=== PATIENT | female | born 1955 | race Caucasian/White ===

== ENCOUNTER 2018-11-17 05:45 | Inpatient (IN) ==
--- NOTE | 2018-10-16 11:02 | Anesthesiology Consultation ---
Date of Service October 16, 2018 Assessment & Plan (1) Encounter for pre-operative examination: Plan: Note was sent to PCP re: leukopenia. Per PCP response "patient lab results possibly due to alcohol dependence... Patient is medically stable for planned procedure." Chart Review Chart Review: Acceptable Risk for Surgery and Patient seen in Pre Admission Testing Teaching & Discussion Instructed NPO after midnight before surgery, except medications with 15 cc of water. Medication instructions provided according to the PAT guidelines. History Surgery Operation Date: 11/17/18 07:00 Proposed Procedures p Left Total Knee Arthroplasty - David Leon DO Height/Weight Height: 5 ft 7 in Weight: 92.2 kg Allergies Allergy/AdvReac Type Severity Reaction Status Date / Time No Known Allergies Allergy Verified 10/10/18 11:00 Medications Home Medications Medication Instructions Recorded Confirmed Last Taken venlafaxine 150 mg PO QAM 10/10/18 10/10/18 Unknown Past Medical History Medical History Alcohol dependence Cancer BREAST CANCER 2000 - LUMPECTOMY, CHEMO AND RADIATION DJD (degenerative joint disease) Depression Hyperlipidemia Pt has declined meds. Obesity Osteoarthritis Sleep apnea Mild per study 06/2018. Past Surgical History Surgical History H/O foot surgery RIGHT FOOT FOR HAMMERTOE History of gastric bypass 2001 Hx of lumpectomy RIGHT BREAST Past Anesthesia History No Hx of Anesthesia Complications and No Family Hx of Anesthesia Complications History of PONV No Motion Sickness Screening History of Motion Sickness: No Social History Smoking Status: Never smoker Do You Dip or Chew Tobacco: No Hx Alcohol Use: Yes Alcohol type: wine alcohol intake frequency: 0-2 drinks per day Hx Substance Use: No substance use type: does not use Exercise / Class Metabolic Activity III < 4 Walking/Shop/Light housework (No CP or SOB with ambulation. Limited activity 2/2 knee pain) Review of Systems Pt denies any recent chest pain, shortness of breath, palpitations, cough, fever or URI. Physical Exam Vital Signs BP: 146/82 P: 94 SPO2: 99% RA T: 98.1 F R: 12 ENMT Mouth: + dental restorations (crowns on few molars); no chipped teeth and no loose teeth Thyromental Distance: > or= 3.5 Finger Breadths (3.5) Mallampati Class: I Neck normal visual inspection; neck extension not limited Respiratory normal respiratory effort Auscultation: lungs clear to auscultation bilaterally Cardiovascular Rate/Rhythm: regular rate and regular rhythm Heart Sounds: + murmur (very soft I/ systolic RSB only) Vessels: no carotid bruit Extremities: no edema Testing Electrocardiogram Date: 06/14/18 Findings: + NSR @ (83) Possible LAE. Chest X-Ray Date: 10/16/18 1. Hazy ill-defined asymmetric opacities about the right lung compared to the left may be artifactual with underlying airspace disease thought to be less likely. 2. Eventration of the right hemidiaphragm. Laboratory Results 10/16/18 11:20 10/16/18 11:20 Blood Type AB Positive 10/16/18 11:20 Antibody Screen NEGATIVE 10/16/18 11:20 PT 10.3 Seconds (9.0-12.0) 10/16/18 11:20 INR 1.0 (0.9-1.1) 10/16/18 11:20 APTT 25.4 Seconds (21.0-31.0) 10/16/18 11:20 Urine Color Dark Yellow 10/16/18 Unknown Urine Appearance Clear (Clear) 10/16/18 Unknown Urine pH 6.0 (4.5-7.5) 10/16/18 Unknown Ur Specific Holstein 1.022 (1.000-1.030) 10/16/18 Unknown Urine Protein Negative (Negative) 10/16/18 Unknown Urine Glucose (UA) Negative (Negative) 10/16/18 Unknown Urine Ketones Trace (Negative) H 10/16/18 Unknown Urine Nitrite Negative (Negative) 10/16/18 Unknown Ur Leukocyte Esterase Negative (Negative) 10/16/18 Unknown 10/16/18 Unknown Urine Culture - Final Urine,Clean Catch Lactobacillus species
--- NOTE | 2018-10-16 11:14 | PAT Medication Instructions ---
Medication Instructions Date of Service October 16, 2018 Home Medications venlafaxine 150 mg PO QAM Take morning of surgery With a small sip of water, OTHERWISE NOTHING TO EAT OR DRINK AFTER MIDNIGHT: venlafaxine 150 mg PO QAM Other Notes If you have any questions please call us at [phone] or [phone] or [phone] or [phone]
--- NOTE | 2018-10-16 12:37 | XRay Report ---
XR chest 2V routine HISTORY: 63 years-old Female Pre-op per Dr Leon preoperative exam. No acute chest complaints repo rted. COMPARISON: None available TECHNIQUE: PA and lateral views of the chest FINDINGS: Cardiac silhouette is normal in size. No pneumothorax or pleural effusion. Left lung is clear. Eventr ation of the right hemidiaphragm. Asymmetrically hazy opacity about the right hemithorax compared to the left. This is not appreciated on the lateral projection. Degenerative changes of the shoulders an d spine. IMPRESSION: 1. Hazy ill-defined asymmetric opacities about the right lung compared to the left may be artifactual with underlying airspace disease thought to be less likely. 2. Eventration of the right hemidiaphragm. The above report was generated using voice recognition software. It may contain grammatical, syntax o r spelling errors. Electronically signed by: Brian Alicea M.D. 10/16/2018 12:36 PM
[2018-10-16 13:18] LABS: Basophils # (auto) 0.03 K/uL (0-0.2); Eosinophils # (auto) 0.12 K/uL (0-0.5); Eosinophils % (auto) 3.8 %; Hematocrit (blood only) 40.2 % (37-47); Hemoglobin 13.3 g/dL (12.0-16.0); Lymphocytes # (auto) 0.95 K/uL (1.2-3.4); Lymphocytes % (auto) 30.4 %; Mean Corpuscular Hgb Conc 33.1 g/dL (32-36); Mean Corpuscular Volume 102.8 fL (80-100); Monocytes # (auto) 0.38 K/uL (0.11-0.59); Monocytes % (auto) 12.2 %; Neutrophils # (auto) 1.64 K/uL (1.4-6.5); Neutrophils % (auto) 52.6 %; Platelet Count 220 K/uL (130-400); RDW Coefficient of Variation 12.8 % (11.5-14.5); RDW Standard Deviation 48.1 fL (36.4-46.3); Red Blood Count 3.91 M/uL (4.2-5.4); White Blood Count 3.12 K/uL (4.8-10.8)
[2018-10-16 13:18] LABS: Appearance Urine Clear (Clear); Bilirubin Urine Negative (Negative); Color Urine Dark Yellow; Glucose Urine UA Negative (Negative); Ketones Urine Trace (Negative); Leukocyte Esterase Urine Negative (Negative); Nitrite Urine Negative (Negative); Protein Urine Negative (Negative); Specific Gravity Urine 1.022 (1.000-1.030); Urobilinogen Urine Negative (Negative)
[2018-10-16 13:25] LABS: Partial Thromboplastin Time 25.4 Seconds (21.0-31.0); Prothrombin Time 10.3 Seconds (9.0-12.0)
[2018-10-16 13:46] LABS: BUN Creatinine Ratio 17.9 (10-20); Calcium 8.6 mg/dl (8.5-10.1); Creatinine Clr Calc Pharmacy 112.3 ml/min; Est GFR (African American) 112.3; Est GFR (Non-African American) 96.9
--- NOTE | 2018-11-16 06:38 | History & Physical Report ---
Date of Service November 16, 2018 Assessment & Plan (1) Osteoarthritis of left knee: We will proceed with a left total knee arthroplasty. Postoperatively she will be started on aspirin for DVT prophylaxis. She will be kept overnight at the hospital for postoperative medical management. She plans to use ECO upon discharge. Present on Admission?: Yes History of Present Illness Chief Complaint: Primary osteoarthritis of the left knee Primary Care Provider: NO PCP Holly is a pleasant 63-year-old female who is been dealing with a several year history of increasing left knee pain. X-rays and clinical examination have been diagnostic for primary osteoarthritis of the left knee. After failing years of conservative treatment, including multiple injections, she has elected to proceed with a left total knee arthroplasty. Allergies Allergy/AdvReac Type Severity Reaction Status Date / Time No Known Allergies Allergy Verified 10/10/18 11:00 Home Medications Home Medications Medication Instructions Recorded Confirmed Type venlafaxine 150 mg PO QAM 10/10/18 10/10/18 History Past Med/Surg History Medical History Alcohol dependence Cancer BREAST CANCER 2000 - LUMPECTOMY, CHEMO AND RADIATION DJD (degenerative joint disease) Depression Hyperlipidemia Pt has declined meds. Obesity Osteoarthritis Sleep apnea Mild per study 06/2018. 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 There is near full range of motion and no evidence of instability. There is significant tenderness palpation along the medial and lateral joint lines and over the distal femoral condyles. Psychiatric: A+Ox3, euthymic affect Results & Data Diagnostic Findings Radiographs of the left knee demonstrate advanced osteoarthritis with joint space narrowing osteophyte formation and [id number] articulation.
[2018-11-17] MEDS ORDERED: ACETAMINOPHEN 500 MG TAB PO SCH (06:00)
[2018-11-17] MEDS ORDERED: CEFAZOLIN 2000MG 2,000 MG/15 ML SYR IV SCH (06:00)
[2018-11-17] MEDS ORDERED: GABAPENTIN 300 MG PO SCH (06:00)
[2018-11-17] MEDS ORDERED: FAMOTIDINE 20 MG TAB PO SCH (06:00)
[2018-11-17] MEDS ORDERED: ROPIVACAINE 0.5% HCL/PF 150 MG, BUPIVACAINE 0.5% MPF 30 ML, EPINEPHrine 30MG/30ML (OR U... INFIL SCH (06:00)
[2018-11-17] MEDS ORDERED: TRANEXAMIC ACID 1,000 MG **IV Pre-op IV SCH (06:00)
[2018-11-17] MEDS ORDERED: LR 60ML/HR IV SCH (06:00)
[2018-11-17] MEDS ORDERED: ROPIVACAINE 0.5% HCL/PF 150 MG, BUPIVACAINE 0.5% MPF 30 ML, Ketorolac (*for OR use only... INFIL SCH (06:00)
[2018-11-17] MEDS ORDERED: BUPIVACAINE 0.5 % 5 MG/1 ML PF 10ML VIAL ONE (06:25)
[2018-11-17] MEDS ORDERED: ROPIVACAINE 0.5% 5 MG/ML 30 ML VIAL ONE (06:26)
[2018-11-17] MEDS ORDERED: TRANEXAMIC ACID 1,000 MG **IV Intra-op IV SCH (06:30)
[2018-11-17] MEDS ORDERED: ORTHO JOINT ANESTHETIC ONE (06:34)
[2018-11-17] MEDS ORDERED: BACITRACIN INJ 50,000 UNIT VIAL ONE (06:34)
--- NOTE | 2018-11-17 06:48 | History & Physical Bridge Note ---
Date of Service November 17, 2018 History & Physical Bridge Note I have examined the patient, reviewed the History & Physical and in the interval since the performance of the History & Physical I have noted the following changes of clinical significance: no changes noted
[2018-11-17] MEDS ORDERED: POVIDONE-IODINE OP SOLN 30 ML BTL ONE (07:06)
[2018-11-17] MEDS ORDERED: MIDAZOLAM HCL 1 MG/ML 2ML VIAL ONE ×2 (07:07→08:44)
[2018-11-17] MEDS ORDERED: fentaNYL citrate 100 MCG/2 ML VIAL ONE (07:07)
[2018-11-17] MEDS ORDERED: PROPOFOL IV EMULSION 10 MG/ML 20 ML VIAL IV ONE ×4 (07:07→10:37)
[2018-11-17] MEDS ORDERED: ONDANSETRON INJ 2 MG/ML 2 ML VIAL IV PRN ×2 (07:48→11:13)
[2018-11-17] MEDS ORDERED: ATROPINE SULFATE 0.1 MG/ML 10ML SYR IV PRN (07:48)
[2018-11-17] MEDS ORDERED: fentaNYL citrate 100 MCG/2 ML VIAL IV PRN (07:48)
[2018-11-17] MEDS ORDERED: ePHEDrine sulfate 50 MG/ML AMP IV PRN (07:48)
--- NOTE | 2018-11-17 10:09 | Operative Report ---
Post Operative Report Pre & Post Diagnosis Operation Date: 11/17/18 08:30 Pre-Op Diagnosis: Left Knee Degenerative Joint Disease Post-Op Diagnosis: Left Knee Degenerative Joint Disease Procedure Operation Date: 11/17/18 08:30 Actual Procedures p Left Total Knee Replacement - David Leon DO Surgeon David Leon DO Four Slide Machine Operator David Mendez PAC Estimated Blood Loss 200 Findings Consistent with Post-Op Diagnosis Specimens Left femoral and tibial bone Complications none Disposition Disposition: Recovery Room Indications Holly is a pleasant 63-year-old female who presented my office with complaints of chronic increasing left knee pain. X-rays and clinical examination were diagnostic for advanced osteoarthritis of the left knee. She has a significant valgus deformity. After failing extensive conservative treatment, she is like to proceed with a left total knee arthroplasty. Description of Procedure Implants used: I used a [employer] Vanguard total knee arthroplasty system with a size 72.5 femur, 71 tibia, 34 patella, and a size 10 PS plus polyethylene bearing. All components were cemented in place with Palacos G cement. The patient arrived [facility] for the above procedure. There were seen in the preoperative holding area and the operative extremity was identified and signed. There were given a preoperative antibiotic, a spinal anesthetic and an adductor nerve block. There were taken back to the operating room and laid on the table in supine position. There were given basic sedation. The operative knee was then prepped and draped in sterile fashion. A timeout was done, and the patient and the operative extremity was properly identified. A midline incision was made directly over the patella. Dissection was taken down to the extensor mechanism. A subvastus arthrotomy was used. The medial retinaculum was released and the fat pad was mostly left intact. The knee was flexed and the ACL, PCL, and meniscus were removed. A drill was sent down the center of the femoral canal followed by an intramedullary isaac. Off that isaac a distal femoral cutting block was placed. 9 mm was resected off the distal femur at 5 of valgus. A posterior referencing AP sizing guide was then placed on the distal femur. The femur measured to be a size 72.5. 2 drill holes were placed in 3 of external rotation. A 4-in-1 cutting block was then impacted into place. Anterior posterior and chamfer cuts were then made. The posterior stabilizing box guide was then impacted into place and the box was resected for the posterior stabilizing component. The proximal tibia was then exposed. A drill was sent down the center of the tibial canal followed by an intramedullary isaac. Off that isaac a proximal tibial resection guide was placed. The proximal tibia was then resected. The tibia measured to be a size 71. The tibial plate was then placed in the appropriate rotation and the tibia was punched. The posterior aspect of the knee was then opened up and any additional meniscus fragments and osteophytes were removed. Trial components were then placed. I used a size 10 PS plus polyethylene insert. The knee was brought through a full range of motion and felt to be stable. The patella was then everted and 8 mm was resected off the posterior aspect of the patella. The patella measured to be a size 34. 3 peg holes were then drilled. A trial patella was placed. The knee was once again brought through a full range of motion and felt to be stable. Trial components were then removed. The surrounding soft tissues were injected with 100 cc of an orthopedic pain control cocktail. All components were then cemented into place with Palacos G cement. The final polyethylene insert was then snapped into place and the anterior bar was locked. Once cement was dry the tourniquet was deflated. Hemostasis was obtained. A dilute betadyne lavage was then done for 3 minutes. The joint was then irrigated with normal saline solution. The subvastus arthrotomy was then closed with #1 Vicryl suture. The skin was closed with 2-0 Vicryl, 3-0V lock suture, and anum. A soft compressive dressing was placed. The patient was then transferred to a hospital bed and taken to the postanesthesia care unit in stable condition. They tolerated the procedure well. I attest to the content of the Intraoperative Record and any orders documented therein. Any exceptions are noted below.
--- NOTE | 2018-11-17 10:52 | XRay Report ---
XR knee LT 2V routine CLINICAL HISTORY: Surgical Post Op COMPARISON: Left knee radiographs May 22, 2018. FINDINGS: Alignment of the total left knee arthroplasty is anatomic. There is no fracture or unexpec darci radiopaque foreign body. There are skin anum. IMPRESSION: Expected findings following total left knee arthroplasty. Electronically signed by: Rickie Weiner M.D. 11/17/2018 10:51 AM
--- NOTE | 2018-11-17 11:05 | Anesthesiology Progress Note ---
Date of Service November 17, 2018 Anesthesia Post Procedure Vital Signs Vital Signs: Temp Pulse Pulse Resp BP Pulse Ox 11/17/18 11:00 97.7 F 65 17 144/82 H 100 11/17/18 10:50 67 19 139/76 100 11/17/18 10:40 69 20 128/72 100 11/17/18 10:31 98.2 F 87 26 H 121/77 100 11/17/18 06:15 98.2 F 90 18 144/79 H 96 Pain Intensity Left Knee: Pain Intensity: 0 Notes Mental Status: alert / awake / arousable and participated in evaluation Patient Amnestic to Procedure: Yes Nausea / Vomiting: adequately controlled Pain: adequately controlled Airway Patency, RR, SpO2: stable & adequate BP & HR: stable & adequate Hydration State: stable & adequate Anesthetic Complications: no major complications apparent and Pt Satisfied with anesthetic care
[2018-11-17] MEDS ORDERED: METOCLOPRAMIDE HCL INJ 5 MG/ML 2 ML VIAL IV PRN (11:13)
[2018-11-17] MEDS ORDERED: BISACODYL 10 MG SUPP PR PRN (11:13)
[2018-11-17] MEDS ORDERED: MAGNESIUM HYDROXIDE SUSP 30 ML UDC PO PRN (11:13)
[2018-11-17] MEDS ORDERED: MoRPHine SULFATE 2 MG/ML CARP IV PRN (11:13)
[2018-11-17] MEDS ORDERED: SODIUM CHLORIDE 0.9% 1000ML 1,000 ML IV SCH (11:13)
[2018-11-17] MEDS: LR 500ML BOLUS, THEN 15ML/HR IV SCH ×3 (12:13→12:15)
[2018-11-17] MEDS ORDERED: Nursing to Pharmacy Communication ONE ×2 (12:15→23:12)
[2018-11-17] MEDS: KETOROLAC TROMETHAMINE 15 MG/ML VIAL IV SCH ×4 (12:48→23:23)
[2018-11-17] MEDS: ACETAMINOPHEN 500 MG TAB PO SCH ×2 (13:52→20:54)
[2018-11-17] MEDS: CEFAZOLIN 2000MG 2,000 MG/15 ML SYR IV SCH ×2 (15:27→23:12)
[2018-11-17] MEDS: ASPIRIN 81 MG ECTAB PO SCH (20:54)
[2018-11-17] MEDS: DOCUSATE SODIUM 100 MG CAP PO SCH (20:54)
[2018-11-17] MEDS ORDERED: SENNA 8.6 MG TAB PO SCH (21:00)
[2018-11-17] MEDS: OXYCODONE HCL IR 5 MG TAB (IMMEDIATE RELEASE) PO PRN (23:06)
[2018-11-18] MEDS: ACETAMINOPHEN 500 MG TAB PO SCH (05:17)
[2018-11-18] MEDS: KETOROLAC TROMETHAMINE 15 MG/ML VIAL IV SCH (05:23)
[2018-11-18 05:44] LABS: Hematocrit (blood only) 30.4 % (37-47); Mean Corpuscular Hgb Conc 32.9 g/dL (32-36); Mean Corpuscular Volume 102.4 fL (80-100); Mean Platelet Volume 10.6 fL (7.4-10.4); Platelet Count 149 K/uL (130-400); RDW Coefficient of Variation 12.6 % (11.5-14.5); RDW Standard Deviation 46.5 fL (36.4-46.3); Red Blood Count 2.97 M/uL (4.2-5.4); White Blood Count 6.73 K/uL (4.8-10.8)
[2018-11-18 06:18] LABS: BUN Creatinine Ratio 15.2 (10-20); Calcium 8.3 mg/dl (8.5-10.1); Creatinine Clr Calc Pharmacy 104.4 ml/min; Est GFR (African American) 109.9; Est GFR (Non-African American) 94.8; Potassium 3.6 mmol/L (3.5-5.1)
[2018-11-18] MEDS: OXYCODONE HCL IR 5 MG TAB (IMMEDIATE RELEASE) PO PRN (08:32)
[2018-11-18] MEDS ORDERED: VENLAFAXINE HCL XR 150 MG CAPXR PO SCH (09:00)
[2018-11-18] MEDS ORDERED: MULTIVITAMIN TAB PO SCH (09:00)
--- NOTE | 2018-11-18 09:00 | Orthopedic Progress Note ---
Date of Service November 18, 2018 Assessment & Plan (1) Osteoarthritis of left knee: Overall she is doing very well. She is on oxycodone for pain control and aspirin for DVT prophylaxis. She will be seen by physical therapy this morning. If she is doing well she can be discharged home today with [facility]. She will follow-up with orthopedics in 2 weeks. Present on Admission?: Yes Ca Barrera was seen and examined at bedside this morning. Overall she is doing very well. She is a little bit of soreness in her knee but is not too bad. She is been up and ambulating. She has no complaints. Physical Exam 2 Vital Signs (Past 24 Hours): Last Vital Signs Temp 36.8 C 11/18/18 06:49 Pulse 76 11/18/18 06:49 Resp 18 11/18/18 06:49 BP 134/80 11/18/18 06:49 Pulse Ox 97 11/18/18 06:49 Musculoskeletal: On physical examination of the left knee, the dressing is clean and dry. Her legs out in full extension. She is active dorsiflexion plantarflexion of the left ankle. Sensation is intact. Results & Data Laboratory Results H & H 10/16/18 11/18/18 Range/Units 11:20 05:14 Hgb 13.3 10.0 L (12.0-16.0) g/dL Hct 40.2 30.4 L (37-47) % Coagulation 10/16/18 Range/Units 11:20 INR 1.0 (0.9-1.1) Diagnostic Findings Postoperative x-rays of the left knee show the prosthesis to be in anatomic alignment without any evidence of fracture, dislocation, or loosening.
--- NOTE | 2018-11-18 09:01 | Discharge Summary ---
Date of Service November 18, 2018 Admission HPI Per Admitting Provider Holly is a pleasant 63-year-old female who is been dealing with a several year history of increasing left knee pain. X-rays and clinical examination have been diagnostic for primary osteoarthritis of the left knee. After failing years of conservative treatment, including multiple injections, she has elected to proceed with a left total knee arthroplasty. Specialty Data Orthopedic H & H 10/16/18 11/18/18 Range/Units 11:20 05:14 Hgb 13.3 10.0 L (12.0-16.0) g/dL Hct 40.2 30.4 L (37-47) % Coagulation 10/16/18 Range/Units 11:20 INR 1.0 (0.9-1.1) Discharge Data Consultations 11/17/18 11:13 Consult Case Management - Discharge Planning Routine Procedures Performed Operation Date: 11/17/18 08:30 Actual Procedures p Left Total Knee Replacement - David Leon DO Hospital Course (1) Osteoarthritis of left knee: On November 17, 2018 Holly arrived at [facility] and underwent a left total knee arthroplasty without complication. She had a spinal anesthetic and a left adductor nerve block. Afterwards she was started on aspirin for DVT prophylaxis and discharged to general orthopedic floors. Her hospital course is uneventful. On postop day #1 her H&H was stable and her pain was well controlled. She was ambulating well with physical therapy. She was subsequently discharged to home with [facility]. She will follow -up with orthopedics in 2 weeks.
[2018-11-18] MEDS: DOCUSATE SODIUM 100 MG CAP PO SCH (09:08)
[2018-11-18] MEDS: ASPIRIN 81 MG ECTAB PO SCH (09:08)
== END 2018-11-18 11:50 | disposition home health service (06) | DRG 470 ==
LOC: ASU 05:45 → 3E 10:12

== ENCOUNTER 2022-07-21 11:05 | Inpatient (IN) ==
[2022-07-21] MEDS ORDERED: cefTRIAXone SODIUM 2,000 MG/70 ML BAG IV STA (11:58)
[2022-07-21] MEDS ORDERED: VANCOMYCIN HCL 1,750 MG in SODIUM CHLORIDE 0.9% 500 ML IV ONE (11:58)
[2022-07-21] MEDS ORDERED: SODIUM CHLORIDE 0.9% 1000ML 1,000 ML IV ONE (11:58)
[2022-07-21] MEDS ORDERED: VANCOMYCIN CONSULT ACTIVE PRN (11:58)
--- NOTE | 2022-07-21 12:19 | Emergency Department Note ---
Impression & Plan Cellulitis of right upper extremity, Cat bite ED Provider Note NAME: NARENDRA PEREZ AGE: 67 SEX: F : 1955 ARRIVES VIA: Walk-In INFORMANT: Patient ED PROVIDER(S): Trevor Crowley DO CHIEF COMPLAINT: cat bite HPI: Patient is a 67-year-old female who was bit by her cat on Tuesday on the right hand. She is right-hand dominant. She notes she went and saw her [facility] [place] and was placed on Augmentin. She has been taking it twice a day every day with exception of this morning as she noticed the redness has gotten significantly worse. She denies any fevers. No tingling or numbness. She notes the redness is streaking up her arm. Ros any headache or change in vision. No chest pain or shortness of breath. No nausea, vomiting, or diarrhea. No dysuria, urgency, or frequency. No other exacerbating or remitting factors. Cats vaccinations are up-to-date and again is an in-house cat and does not go outside. ROS: See above HPI for pertinent positives & negatives. A total of 10 systems reviewed and were otherwise negative. PAST MEDICAL HISTORY:See Below PAST SURGICAL HISTORY:See Below FAMILY HISTORY:See Below SOCIAL HISTORY:See Below HOME MEDICATIONS:See Below ALLERGIES:See Below VITALS:See Below PHYSICAL EXAMINATION: GENERAL: Sitting up in bed, alert, well appearing, well nourished, no distress, non-toxic EYE EXAM: normal conjunctiva. OROPHARYNX: no exudate, no erythema, lips, buccal mucosa, and tongue normal and mucous membranes are moist NECK: supple, no nuchal rigidity, no adenopathy, non-tender LUNGS: Clear to auscultation. Normal chest wall mechanics HEART: no murmurs, S1 normal and S2 normal ABDOMEN: abdomen soft, non-tender, normo-active bowel sounds, no masses, no rebound or guarding. BACK: Back is symmetrical on inspection and there is no deformity, no midline tenderness, no CVA tenderness. SKIN: no rashes and no bruising UPPER EXTREMITIES: Flexion-extension left shoulder elbow wrist grasp and abduction of digits intact. Erythema on the left dorsal hand streaking up bilaterally on the palmar and dorsal surface to the elbow. Skin is warm and tender. 2 scabbed regions over the dorsal aspect of the left wrist. LOWER EXTREMITIES: No pitting edema. NEURO EXAM: Normal sensorium, cranial nerves II-XII grossly intact, normal speech, no gross weakness of arms, no gross weakness of legs. MEDICAL DECISION MAKING: Patient is a 67-year-old female who presents the ER for the above-stated co mplaint. She is being treated for cat bite on her right hand on Augmentin getting worse since Tuesday. IV was established blood work is obtained. Labs show no significant leukocytosis or anemia. BMP along with LFTs bilirubin was unremarkable. UA was unremarkable. COVID was negative. X-rays were negative. Patient was updated bedside. She was given IV Rocephin and vancomycin and admitted for further work-up to the [facility] service with failure of outpatient treatment. Triage Nursing notes reviewed. Limited review of prior medical records performed Vital Signs: reviewed and remarkable for HTn and tachy Differential diagnosis: Cellulitis, abscess, MRSA infection, DVT, necrotizing fasciitis, dermatitis, drug eruption, allergic reaction, as well as other pathologies. ER treatment provided: See below Diagnostics interpreted by me: ECG: none Cardiac Monitoring: An order was placed for continuous cardiac monitoring. The monitor shows a rate of 70 with sinus rhythm. Laboratory studies: As stated above and show below. Imaging studies: X-ray of the hand is unremarkable Consultation(s): D/w ZENA Portillo for further evaluation Procedures: none Critical Care: None Past Med/Surg History Medical History Alcohol dependence Breast cancer Cancer BREAST CANCER 2000 - LUMPECTOMY, CHEMO AND RADIATION Depression DJD (degenerative joint disease) Hyperlipidemia Pt has declined meds. Obesity Osteoarthritis Sleep apnea Mild per study 06/2018. 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 Required: No Beliefs That Will Affect Care: None marital status: Current Living Situation: Spouse Feels Safe at Home: Yes Assistive Devices: Walker Allergies Allergies Allergy/AdvReac Type Severity Reaction Status Date / Time No Known Allergies Allergy Verified 11/17/18 06:14 Home Meds Home Medications Medication Instructions Recorded Confirmed amoxicillin 875 mg-potassium 1 tab PO BID 07/21/22 07/21/22 clavulanate 125 mg tablet rosuvastatin 10 mg tablet 10 mg PO DAILY 07/21/22 07/21/22 venlafaxine 150 mg 150 mg PO DAILY 07/21/22 07/21/22 capsule,extended release 24 hr Results & Data (ED) Vital Signs Vital Signs - 24 hr 07/21/22 11:11 07/21/22 12:53 07/21/22 12:47 Temperature 36.8 C Temperature Source Temporal Artery Scan Pulse Rate 105 H 94 H Pulse Rate [Left Finger] 94 H Pulse Rhythm Regular Pulse Rhythm [Left Finger] Regular Pulse Strength [Left Finger] Normal Respiratory Rate 14 18 18 Respiratory Effort / Characteristics Non-Labored Spontaneous Non-Labored Spontaneous Respiratory Depth Normal Normal Respiratory Pattern Regular Regular Blood Pressure 164/113 H Blood Pressure [Right Arm] 175/86 H Blood Pressure Mean 130 Blood Pressure Mean [Right Arm] 115 Blood Pressure Position Sitting Blood Pressure Position [Right Arm] Sitting Pulse Oximetry 98 100 95 Oxygen Delivery Method Room Air Room Air Room Air Sepsis Recent Fever Within 48 Hours No Sepsis New/Unexplained Change in Mental Status No Sepsis Action Taken by Nursing No Action Required 07/21/22 14:47 Temperature Temperature Source Pulse Rate Pulse Rate [Left Finger] 72 Pulse Rhythm Pulse Rhythm [Left Finger] Regular Pulse Strength [Left Finger] Normal Respiratory Rate 20 Respiratory Effort / Characteristics Non-Labored Spontaneous Respiratory Depth Normal Respiratory Pattern Regular Blood Pressure Blood Pressure [Right Arm] 168/102 H Blood Pressure Mean Blood Pressure Mean [Right Arm] 124 Blood Pressure Position Blood Pressure Position [Right Arm] Sitting Pulse Oximetry 96 Oxygen Delivery Method Room Air Sepsis Recent Fever Within 48 Hours Sepsis New/Unexplained Change in Mental Status Sepsis Action Taken by Nursing Laboratory Data Result diagrams: 07/21/22 12:24 07/21/22 12:24 Lab Results 09/14/22 09/14/22 09/14/22 Range/Units 12:24 12:24 12:53 WBC 5.92 (4.8-10.8) K/ul RBC 3.76 L (3.93-5.22) M/uL Hgb 13.7 (12.0-16.0) g/dl Hct 40.0 (34.1-44.9) % MCV 106.4 H (80.0-100.0) fL MCH 36.4 H (25.0-34.0) pg MCHC 34.3 (32.0-36.0) g/dL RDW Std Deviation 47.8 H (36.4-46.3) fL RDW Coeff of Maggy 12.2 (11.5-14.5) % Plt Count 196 (130-400) K/uL MPV 10.4 (9.4-12.3) fL Immature Gran % (Auto) 0.3 % Neut % (Auto) 71.8 % Lymph % (Auto) 14.2 % [place] % (Auto) 11.7 % Eos % (Auto) 1.7 % Baso % (Auto) 0.3 % Neut # (Auto) 4.25 (1.4-6.5) K/uL Lymph # (Auto) 0.84 L (1.2-3.4) K/uL [place] # (Auto) 0.69 (0.24-0.82) K/uL Eos # (Auto) 0.10 (0-0.50) K/uL Baso # (Auto) 0.02 (0-0.2) K/uL Immature Gran # (Auto) 0.02 (0.00-0.02) K/uL Sodium 139 (136-145) mmol/L Potassium 4.1 (3.5-5.1) mmol/L Chloride 105 (98-107) mmol/L Carbon Dioxide 25 (21-32) mmol/L Anion Gap 9 (3-11) BUN 10 (6-23) mg/dl Creatinine 0.63 (0.6-1.2) mg/dl Est Cr Clr Drug Dosing 100.3 ml/min Est GFR ( Amer) 106.8 ml/min Est GFR (Non-Af Amer) 92.2 ml/min BUN/Creatinine Ratio 15.9 (10-20) Glucose 84 (70-99(Fasting)) mg/dl Calcium 9.4 (8.5-10.1) mg/dl Total Bilirubin 0.7 (0.2-1.0) mg/dl AST 23 (13-39) U/L ALT 15 (7-52) U/L Alkaline Phosphatase 63 (34-104) U/L Total Protein 7.5 (6.0-8.3) gm/dl Albumin 4.2 (3.4-5.0) gm/dl Globulin 3.3 (2.5-4.0) gm/dl Albumin/Globulin Ratio 1.3 (0.9-2) Urine Color Dark Yellow Urine Appearance Clear (Clear) Urine pH 5.5 (4.5-7.5) Ur Specific [place] 1.023 (1.000-1.030) Urine Protein Trace H (Negative) Urine Glucose (UA) Negative (Negative) Urine Ketones 1+ H (Negative) Urine Blood Negative (Negative) Urine Nitrite Negative (Negative) Urine Bilirubin Negative (Negative) Urine Urobilinogen Negative (Negative) Ur Leukocyte Esterase Negative (Negative) Urine WBC (Auto) 1-5 (0-5) /hpf Urine RBC (Auto) 0-4 (0-4) /hpf U Hyaline Cast (Auto) 1-5 (0-5) /lpf U Epithel Cells (Auto) >30 H (0-5) /lpf Urine Bacteria (Auto) Negative (Negative) SARS-CoV-2, RNA, NAAT (NEGATIVE) 07/21/22 Range/Units 14:10 WBC (4.8-10.8) K/ul RBC (3.93-5.22) M/uL Hgb (12.0-16.0) g/dl Hct (34.1-44.9) % MCV (80.0-100.0) fL MCH (25.0-34.0) pg MCHC (32.0-36.0) g/dL RDW Std Deviation (36.4-46.3) fL RDW Coeff of Maggy (11.5-14.5) % Plt Count (130-400) K/uL MPV (9.4-12.3) fL Immature Gran % (Auto) % Neut % (Auto) % Lymph % (Auto) % [place] % (Auto) % Eos % (Auto) % Baso % (Auto) % Neut # (Auto) (1.4-6.5) K/uL Lymph # (Auto) (1.2-3.4) K/uL [place] # (Auto) (0.24-0.82) K/uL Eos # (Auto) (0-0.50) K/uL Baso # (Auto) (0-0.2) K/uL Immature Gran # (Auto) (0.00-0.02) K/uL Sodium (136-145) mmol/L Potassium (3.5-5.1) mmol/L Chloride (98-107) mmol/L Carbon Dioxide (21-32) mmol/L Anion Gap (3-11) BUN (6-23) mg/dl Creatinine (0.6-1.2) mg/dl Est Cr Clr Drug Dosing ml/min Est GFR ( Amer) ml/min Est GFR (Non-Af Amer) ml/min BUN/Creatinine Ratio (10-20) Glucose (70-99(Fasting)) mg/dl Calcium (8.5-10.1) mg/dl Total Bilirubin (0.2-1.0) mg/dl AST (13-39) U/L ALT (7-52) U/L Alkaline Phosphatase (34-104) U/L Total Protein (6.0-8.3) gm/dl Albumin (3.4-5.0) gm/dl Globulin (2.5-4.0) gm/dl Albumin/Globulin Ratio (0.9-2) Urine Color Urine Appearance (Clear) Urine pH (4.5-7.5) Ur Specific [place] (1.000-1.030) Urine Protein (Negative) Urine Glucose (UA) (Negative) Urine Ketones (Negative) Urine Blood (Negative) Urine Nitrite (Negative) Urine Bilirubin (Negative) Urine Urobilinogen (Negative) Ur Leukocyte Esterase (Negative) Urine WBC (Auto) (0-5) /hpf Urine RBC (Auto) (0-4) /hpf U Hyaline Cast (Auto) (0-5) /lpf U Epithel Cells (Auto) (0-5) /lpf Urine Bacteria (Auto) (Negative) SARS-CoV-2, RNA, NAAT NEGATIVE (NEGATIVE) Administered Medications Discontinued Medications Sodium Chloride (Nss 1000ml) 1,000 mls @ 999 mls/hr IV .[id number] ONE Stop: 07/21/22 12:58 Last Infusion: 07/21/22 13:22 Dose: 0 mls/hr Documented By: Admin: 07/21/22 12:21 Dose: 999 mls/hr Documented By: RUKHSANA Vancomycin HCl 1,750 mg/ (Sodium Chloride) 535 mls @ 200 mls/hr IV NOW ONE Stop: 07/21/22 14:38 Last Admin: 07/21/22 12:47 Dose: 200 mls/hr Documented By: QUITA Ceftriaxone Sodium (Rocephin) 2,000 mg in 70 mls @ 140 mls/hr IV NOW STA Stop: 07/21/22 12:27 Last Infusion: 07/21/22 12:51 Dose: 0 mls/hr Documented By: Admin: 07/21/22 12:21 Dose: 140 mls/hr Documented By: RUKHSANA Imaging Data Radiologist's Impression: Hand X-Ray 07/21/22 11:58 RIGHT HAND 3 VIEWS HISTORY: r hand cat bite COMPARISON: None. FINDINGS: There is no fracture or dislocation. Mild dorsal soft tissue swelling within the hand. No destructive changes to suggest an osteomyelitis. Mild degenerative changes within the DIP joints and interphalangeal joint of the thumb. No radiopaque foreign bodies. IMPRESSION: Mild dorsal soft tissue swelling within the right hand. No underlying bony abnormality. ACT 112: Negative or not required by law. Electronically signed by: Nick Santos M.D. 07/21/2022 12:53 PM Discharge Plan Visit Data Chief Complaint: Animal Bite Stated Complaint: BAT BITE ED Provider: Trevor Crowley Discharge Problem: Cellulitis of right upper extremity, Cat bite Forms Stand Alone Forms: [facility] Prescriptions Prescriptions: No Action venlafaxine 150 mg capsule,extended release 24hr 150 mg PO DAILY amoxicillin-pot clavulanate 875-125 mg tablet 1 tab PO BID Rx Instructions: Started 07/19/22 for 7 day course rosuvastatin 10 mg tablet 10 mg PO DAILY Referrals Referrals: Terrence Iverson DO [Primary Care Provider] -
[2022-07-21 12:45] LABS: Basophils # (auto) 0.02 K/uL (0-0.2); Basophils % (auto) 0.3 %; Eosinophils % (auto) 1.7 %; Hemoglobin 13.7 g/dl (12.0-16.0); Immature Granulocytes # (auto) 0.02 K/uL (0.00-0.02); Immature Granulocytes % (auto) 0.3 %; Lymphocytes # (auto) 0.84 K/uL (1.2-3.4); Lymphocytes % (auto) 14.2 %; Mean Corpuscular Hemoglobin 36.4 pg (25.0-34.0); Mean Corpuscular Hgb Conc 34.3 g/dL (32.0-36.0); Mean Corpuscular Volume 106.4 fL (80.0-100.0); Mean Platelet Volume 10.4 fL (9.4-12.3); Monocytes # (auto) 0.69 K/uL (0.24-0.82); Monocytes % (auto) 11.7 %; Neutrophils # (auto) 4.25 K/uL (1.4-6.5); Neutrophils % (auto) 71.8 %; Platelet Count 196 K/uL (130-400); RDW Coefficient of Variation 12.2 % (11.5-14.5); RDW Standard Deviation 47.8 fL (36.4-46.3); Red Blood Count 3.76 M/uL (3.93-5.22); White Blood Count 5.92 K/ul (4.8-10.8)
--- NOTE | 2022-07-21 12:54 | XRay Report ---
RIGHT HAND 3 VIEWS HISTORY: r hand cat bite COMPARISON: None. FINDINGS: There is no fracture or dislocation. Mild dorsal soft tissue swelling within the hand. No d estructive changes to suggest an osteomyelitis. Mild degenerative changes within the DIP joints and i nterphalangeal joint of the thumb. No radiopaque foreign bodies. IMPRESSION: Mild dorsal soft tissue swelling within the right hand. No underlying bony abnormality. ACT 112: Negative or not required by law. Electronically signed by: Nick Santos M.D. 07/21/2022 12:53 PM
[2022-07-21 13:16] LABS: Appearance Urine Clear (Clear); Bacteria Urine Automated Negative (Negative); Bilirubin Urine Negative (Negative); Blood Urine Negative (Negative); Color Urine Dark Yellow; Epithelial Cell Urine Auto >30 /lpf (0-5); Glucose Urine UA Negative (Negative); Ketones Urine 1+ (Negative); Leukocyte Esterase Urine Negative (Negative); Nitrite Urine Negative (Negative); Protein Urine Trace (Negative); RBC Urine Automated 0-4 /hpf (0-4); Specific Gravity Urine 1.023 (1.000-1.030); Urobilinogen Urine Negative (Negative); pH Urine 5.5 (4.5-7.5)
[2022-07-21 13:27] LABS: Albumin Globulin Ratio 1.3 (0.9-2); Albumin Level 4.2 gm/dl (3.4-5.0); BUN Creatinine Ratio 15.9 (10-20); Bilirubin,Total 0.7 mg/dl (0.2-1.0); Calcium 9.4 mg/dl (8.5-10.1); Creatinine Clr Calc Pharmacy 100.3 ml/min; Est GFR (African American) 106.8 ml/min; Est GFR (Non-African American) 92.2 ml/min; Globulin 3.3 gm/dl (2.5-4.0); Potassium 4.1 mmol/L (3.5-5.1); Total Protein 7.5 gm/dl (6.0-8.3)
--- NOTE | 2022-07-21 13:39 | History & Physical Report ---
Date of Service July 21, 2022 Assessment & Plan (1) Cat bite: (2) Cellulitis of right upper extremity: Plan: Patient is 67 y/o F with PMH HLD, depression, alcohol use, right breast cancer s/p chemo, radiation, LYNETTE, obesity s/p gastric bypass presented to ER with c/o cat bite and right hand redness x 2 days. Pt's Indoor pet cat reportedly up to date on vaccinations. 07/19/22 urgent care and started on Augmentin and has taken 3 doses with increased redness past 24 hours. No h/o MRSA In ER afebrile. No leukocytosis Right hand Xray: Mild dorsal soft tissue swelling within the right hand. No underlying bony abnormality In ER given 1L NSS, Rocephin, Vancomycin Pt up to date on Tdap - 06/08/22 Blood cultures obtained after initial antibiotics given in ER Will start Unasyn Start probiotic Closely monitor CBC, BMP in am (3) Elevated blood pressure reading: Plan: BP elevated in ER. Likely situational. No h/o HTN Monitor (4) Hyperlipidemia: Plan: Rosuvastatin recently prescribed however pt has not started taking yet (5) Depression: Plan: Continue venlafaxine (6) Breast cancer: Plan: Right breast cancer s/p chemo, radiation (7) Obesity: Plan: S/P gastric bypass (8) Sleep apnea: Plan: Not on CPAP (9) Alcohol use: Plan: Reports 1 glass wine daily. Denies history alcohol withdrawal DVT Prophylaxis Lovenox SQ Full Code as per discussion with pt Follows with Dr Iverson for routine care Pt was seen and care coordinated with Dr Quiros. See addendum History of Present Illness Chief Complaint: Cat bite, right hand redness Primary Care Provider: Terrence Iverson DO Patient is 67 y/o F with PMH HLD, depression, alcohol use, right breast cancer s/p chemo, radiation, LYNETTE, obesity s/p gastric bypass presented to ER with c/o cat bite and right hand redness x 2 days. Patient states 2 days ago her pet cat bit her right hand after patient "spooked" cat by walking by it. It is inside cat only and reports is up to date on vaccinations. Patient's last Tdap on 06/08/22. She states later in day after cat bite had some redness to dorsal aspect of right hand and was seen at urgent care 07/19/22 for cat bite and was started on Augmentin. She has taken 3 doses of Augmentin. States past 24 hours with increased redness extending up her right forearm and down into her fingers. Has increased discomfort with flexing and extending wrist and fingers. Reports some numbness/tingling sensation to all of her fingers. Denies any noted discharge. Taking Tylenol and ibuprofen with moderate relief of discomfort. Reports pain 3/10 on pain scale. Today with some loose stools. Denies history of MRSA. Denies fever/chills, diaphoresis, N/V, melena, hematochezia, JOYNER, dizziness, syncope, vision changes, neck pain, CP, SOB, orthopnea, palpitations, cough, sore throat, choking, otalgia, rhinorrhea, abdominal pain, weakness, other extremity edema, other rashes, urinary symptoms. Allergies Allergy/AdvReac Type Severity Reaction Status Date / Time No Known Allergies Allergy Verified 11/17/18 06:14 Home Medications Medication Instructions Recorded Confirmed Type amoxicillin 875 mg-potassium 1 tab PO BID 07/21/22 07/21/22 History clavulanate 125 mg tablet rosuvastatin 10 mg tablet 10 mg PO DAILY 07/21/22 07/21/22 History venlafaxine 150 mg 150 mg PO DAILY 07/21/22 07/21/22 History capsule,extended release 24 hr Past Med/Surg History Medical History Alcohol dependence Breast cancer Cancer BREAST CANCER 2000 - LUMPECTOMY, CHEMO AND RADIATION Depression DJD (degenerative joint disease) Hyperlipidemia Pt has declined meds. Obesity Osteoarthritis Sleep apnea Mild per study 06/2018. Surgical History H/O foot surgery RIGHT FOOT FOR HAMMERTOE History of colonoscopy History of gastric bypass 2001 Hx of lumpectomy RIGHT BREAST Family History Other Coronary heart disease Diabetes Social History (Updated 07/21/22 @ 14:21 by Renee Neff PA-C) Smoking Status: Never smoker Second Hand Exposure: No; Hx Alcohol Use: Yes (1 glass wine daily) Alcohol type: wine Hx Substance Use: No Preferred Language: Hungarian Communication Ability: Effective Payroll Technician Required: No Beliefs That Will Affect Care: None marital status: Current Living Situation: Spouse Feels Safe at Home: Yes Assistive Devices: Walker Review of Systems Review of Systems: All systems reviewed & are unremarkable except as noted in HPI & below Physical Exam Physical Exam: General: no distress, WDWN Head: normocephalic, atraumatic Eyes: conjunctiva non-injected, anicteric ENT: normal inspection external ears, nose, mucous membranes moist Neck: supple, trachea midline Lungs: clear, no respiratory distress, no wheezing/rhonchi/rales CV: RRR, no murmur, no pretibial edema Abd: normal BS, soft, non-tender Ext: no cyanosis, no calf tenderness; RUE: right dorsal hand with several puncture wounds with surrounding erythema and edema (previous skin marker in place) without fluctuance, erythema and warmth extends proximally to dorsal and ulnar aspect of forearm and distally to fingers. (Area marked with skin marker) Max area of erythema measures approximately 24cm x 14cm. Able to flex and extend wrist and all digits. brisk capillary refill, sensation to light touch intact Neuro: A&O x 3, no focal deficits noted, normal affect Skin: warm, dry Results & Data Results & Data ([facility]) Vital Signs (Past 12 Hours) Vital Signs Temp Pulse Pulse Resp BP BP Pulse Ox 07/21/22 12:47 94 H 18 175/86 H 95 07/21/22 12:53 94 H 18 100 07/21/22 11:11 36.8 C 105 H 14 164/113 H 98 O2 Del Method 07/21/22 12:47 Room Air 07/21/22 12:53 Room Air 07/21/22 11:11 Room Air Laboratory Results Short CBC 07/21/22 Range/Units 12:24 WBC 5.92 (4.8-10.8) K/ul Hgb 13.7 (12.0-16.0) g/dl Hct 40.0 (34.1-44.9) % Plt Count 196 (130-400) K/uL BMP 07/21/22 12:24 Sodium 139 Potassium 4.1 Chloride 105 Carbon Dioxide 25 BUN 10 Creatinine 0.63 Glucose 84 Calcium 9.4 Liver Function 09/14/22 Range/Units 12:24 Total Bilirubin 0.7 (0.2-1.0) mg/dl AST 23 (13-39) U/L ALT 15 (7-52) U/L Alkaline Phosphatase 63 (34-104) U/L Albumin 4.2 (3.4-5.0) gm/dl Urine 07/21/22 Range/Units 12:53 Urine Color Dark Yellow Urine Appearance Clear (Clear) Urine pH 5.5 (4.5-7.5) Ur Specific [place] 1.023 (1.000-1.030) Urine Protein Trace H (Negative) Urine Glucose (UA) Negative (Negative) Diagnostic Findings Hand X-Ray 07/21/22 11:58 RIGHT HAND 3 VIEWS HISTORY: r hand cat bite COMPARISON: None. FINDINGS: There is no fracture or dislocation. Mild dorsal soft tissue swelling within the hand. No destructive changes to suggest an osteomyelitis. Mild degenerative changes within the DIP joints and interphalangeal joint of the thumb. No radiopaque foreign bodies. IMPRESSION: Mild dorsal soft tissue swelling within the right hand. No underlying bony abnormality. ACT 112: Negative or not required by law. Electronically signed by: Nick Santos M.D. 07/21/2022 12:53 PM Supervising Physician Co-Signing Physician Notes Patient is a 67-year-old female with history of right breast cancer, depression and other medical problems presents with history of right hand erythematous rash, pain, swelling which has been gradually worsening since 2 days duration. Patient had a pet cat bite 2 days ago and was placed on Augmentin. Due to gradual worsening of the symptoms, patient presented to ED for further evaluation. Please review HPI for complete details of presentation. Blood work reviewed and fairly unremarkable. Urine analysis not suggestive of UTI. Hand x-ray showed mild dorsal soft tissue swelling within the right hand. No underlying bony abnormality noted. On exam patient is moderately built and nourished, no apparent distress, normocephalic atraumatic, EOMI, normal breath sounds, clear to auscultation, S1-S2, no murmur, no pedal edema, abdomen soft, nontender, normal bowel sounds, right upper extremity erythematous rash predominantly on the right head,+ puncture wound, mildly tender and mildly decreased range of movement, no loss of sensory sensation, motor function. Patient is alert, awake, oriented, grossly no focal deficits. Patient is admitted for management of right upper extremity cellulitis secondary to cat bite. Will hold p.o. antibiotics and start on Unasyn. Blood cultures will be obtained. Pain control as needed. Blood pressure slightly elevated likely si tuational secondary to pain. Will monitor for now and consider antihypertensives if blood pressure remains elevated persistently. I personally reviewed the record. Patient is interviewed and examined at bedside. Patient's care is coordinated with Renee Neff PA-C. Please refer to the documentation above for details of patient's presentation and for discussion of other issues.
[2022-07-21] MEDS ORDERED: KETOROLAC TROMETHAMINE 15 MG/ML VIAL IV PRN (17:09)
[2022-07-21] MEDS ORDERED: POLYETHYLENE (MIRALAX) 17 GM PACK PO PRN (17:09)
[2022-07-21] MEDS ORDERED: ONDANSETRON INJ 2 MG/ML 2 ML VIAL IV PRN (17:09)
[2022-07-21] MEDS ORDERED: ACETAMINOPHEN 325 MG TAB PO PRN (17:09)
[2022-07-21] MEDS: SACCHAROMYCES BOULARDII 250 MG CAP PO SCH (17:57)
[2022-07-21] MEDS: AMPICILLIN/SULBACTAM SOD 3,000 MG in 0.9 % SODIUM CHLORIDE 100 ML IV SCH ×2 (17:58→23:28)
[2022-07-21] MEDS: ENOXAPARIN INJ 40 MG/0.4 ML SYR SQ SCH (18:39)
[2022-07-21] MEDS ORDERED: LABETALOL HCL IV 5 MG/ML 20ML IV PRN (19:23)
[2022-07-21] MEDS ORDERED: hydrALAZINE 10 MG TAB PO PRN (20:41)
[2022-07-22] MEDS ORDERED: LABETALOL HCL IV 5 MG/ML 20ML IV STA (03:40)
[2022-07-22] MEDS ORDERED: LABETALOL HCL IV 5 MG/ML 20ML IV ONE (03:45)
[2022-07-22] MEDS: AMPICILLIN/SULBACTAM SOD 3,000 MG in 0.9 % SODIUM CHLORIDE 100 ML IV SCH ×4 (05:25→22:46)
[2022-07-22 06:11] LABS: Hematocrit (blood only) 36.8 % (34.1-44.9); Hemoglobin 12.5 g/dl (12.0-16.0); Mean Corpuscular Hemoglobin 35.8 pg (25.0-34.0); Mean Corpuscular Volume 105.4 fL (80.0-100.0); Mean Platelet Volume 10.4 fL (9.4-12.3); Platelet Count 162 K/uL (130-400); RDW Coefficient of Variation 11.9 % (11.5-14.5); RDW Standard Deviation 46.5 fL (36.4-46.3); Red Blood Count 3.49 M/uL (3.93-5.22); White Blood Count 4.17 K/ul (4.8-10.8)
[2022-07-22 06:27] LABS: BUN Creatinine Ratio 16.4 (10-20); Calcium 8.7 mg/dl (8.5-10.1); Creatinine Clr Calc Pharmacy 115.9 ml/min; Est GFR (African American) 111.7 ml/min; Est GFR (Non-African American) 96.4 ml/min; Potassium 3.7 mmol/L (3.5-5.1)
[2022-07-22] MEDS: THIAMINE HCL 100 MG TAB PO SCH (08:50)
[2022-07-22] MEDS: FOLIC ACID 1 MG TAB PO SCH (08:50)
[2022-07-22] MEDS: SACCHAROMYCES BOULARDII 250 MG CAP PO SCH (08:50)
[2022-07-22] MEDS: VENLAFAXINE HCL XR 150 MG CAPXR PO SCH (08:51)
--- NOTE | 2022-07-22 14:48 | Hospitalist Progress Note ---
Date of Service July 22, 2022 Assessment & Plan (1) Cat bite: (2) Cellulitis of right upper extremity: Plan: Patient is 67 y/o F with PMH HLD, depression, alcohol use, right breast cancer s/p chemo, radiation, LYNETTE, obesity s/p gastric bypass presented to ER with c/o cat bite and right hand redness x 2 days. Pt's Indoor pet cat reportedly up to date on vaccinations. 07/19/22 urgent care and started on Augmentin and has taken 3 doses with increased redness past 24 hours. No h/o MRSA In ER afebrile. No leukocytosis Right hand Xray: Mild dorsal soft tissue swelling within the right hand. No underlying bony abnormality In ER given 1L NSS, Rocephin, Vancomycin Pt up to date on Tdap - 06/08/22 Blood cultures obtained after initial antibiotics given in ER Has been on intravenous Unasyn since admission and the bite area with adjoining redness have improved a lot Swelling has decreased and no evidence of any abscess locally Advised to keep the hand elevated We will continue IV antibiotic for now and likely to discharge on oral Augmentin to complete a total of 10 days course of antibiotic (3) Elevated blood pressure reading: Plan: BP elevated in ER. Likely situational. No h/o HTN Blood pressure is controlled (4) Hyperlipidemia: Plan: Rosuvastatin recently prescribed however pt has not started taking yet (5) Depression: Plan: Continue venlafaxine (6) Breast cancer: Plan: Right breast cancer s/p chemo, radiation (7) Obesity: Plan: S/P gastric bypass (8) Sleep apnea: Plan: Not on CPAP (9) Alcohol use: Plan: Reports 1 glass wine daily. Denies history alcohol withdrawal Noted to have tachycardia may be from withdrawal symptoms Tachycardia seems to be resolving DVT Prophylaxis Lovenox SQ Full Code as per discussion with pt Follows with Dr Iverson for routine care Likely discharge tomorrow Admission and Anticipated Discharge Date Admission Date: July 21, 2022 Subjective 07/22/2022 The patient was seen and examined in telemetry unit She has been feeling much better Right hand is improved with less swelling and less inflammation around the lesion on the dorsum of right hand Denies any other symptom Review of Systems Review of Systems: All systems reviewed and are unremarkable except as noted below Physical Exam Physical Exam: Lying in bed comfortably Constitutional: well developed, well nourished, + ill appearing and + obese Eyes: PERRL, conjunctivae normal, anicteric sclerae ENMT: external ear and nose normal, oropharynx normal Neck: trachea midline, no thyromegaly Respiratory: no respiratory distress Auscultation: lungs clear to auscultation bilaterally Cardiovascular: Rate/Rhythm: regular rate, regular rhythm and + tachycardic Heart Sounds: normal S1 and normal S2; no murmur Extremities: no edema Gastrointestinal (Abdomen): Inspection/Auscultation: normal bowel sounds; abdomen not distended Percussion/Palpation: abdomen soft; abdomen nontender Neurologic: normal touch/pain/proprioception and moves all extremities; no focal motor deficits Psychiatric: A+Ox3, euthymic affect Lymphatic: no cervical or axillary lymphadenopathy Results & Data Results & Data ([facility]) Vital Signs (Past 12 Hours) Vital Signs Temp Pulse Resp BP BP Pulse Ox O2 Del Method 07/22/22 11:35 36.8 C 95 H 16 130/79 98 Room Air 07/22/22 07:52 36.8 C 92 H 18 153/86 H 96 Room Air 07/22/22 04:30 162/115 H 07/22/22 03:33 36.8 C 112 H 20 197/139 H 98 Room Air Laboratory Results Short CBC 07/22/22 Range/Units 05:46 WBC 4.17 L (4.8-10.8) K/ul Hgb 12.5 (12.0-16.0) g/dl Hct 36.8 (34.1-44.9) % Plt Count 162 (130-400) K/uL [facility] 07/22/22 05:46 Sodium 137 Potassium 3.7 Chloride 104 Carbon Dioxide 26 BUN 9 Creatinine 0.55 L Glucose 108 H Calcium 8.7 Medications Administered Current Inpatient Medications Acetaminophen (Acetaminophen 325 Mg Tab) 650 mg PO Q4H PRN PRN Reason: pain/fever Stop: 08/20/22 17:08 Last Admin: 07/21/22 17:32 Dose: 650 mg Enoxaparin Sodium (Enoxaparin Inj 40 Mg/0.4 Ml Syr) 40 mg SQ Q24H SIMRAN Stop: 08/20/22 17:29 Last Admin: 07/21/22 18:39 Dose: 40 mg Folic Acid (Folic Acid 1 Mg Tab) 1 mg PO QAM SIMRAN Stop: 08/21/22 08:59 Last Admin: 07/22/22 08:50 Dose: 1 mg Hydralazine HCl (Hydralazine 10 Mg Tab) 10 mg PO Q6H PRN PRN Reason: hypertension Stop: 08/20/22 20:44 Last Admin: 07/21/22 23:28 Dose: 10 mg Ampicillin Sodium/Sulbactam Sodium 3,000 mg/ Sodium Chloride 108 mls @ 200 mls/hr IV Q6H SIMRAN; Protocol Stop: 07/28/22 17:29 Last Infusion: 07/22/22 13:35 Dose: Infused Ketorolac Tromethamine (Ketorolac Tromethamine 15 Mg/Ml Vial) 15 mg IV Q6H PRN PRN Reason: Moderate Pain Stop: 07/23/22 17:08 Ondansetron HCl (Ondansetron Inj 2 Mg/Ml 2 Ml Vial) 4 mg IV Q6H PRN PRN Reason: Nausea Stop: 08/20/22 17:08 Polyethylene Glycol (Polyethylene (Miralax) 17 Gm Pack) 17 gm PO DAILY PRN PRN Reason: Constipation Stop: 08/20/22 17:08 Saccharomyces Boulardii (Saccharomyces Boulardii 250 Mg Cap) 250 mg PO DAILY SIMRAN Stop: 08/20/22 17:29 Last Admin: 07/22/22 08:50 Dose: 250 mg Thiamine HCl (Thiamine Hcl 100 Mg Tab) 100 mg PO QAM [facility] Stop: 08/21/22 08:59 Last Admin: 07/22/22 08:50 Dose: 100 mg Venlafaxine HCl (Venlafaxine Hcl Xr 150 Mg Capxr) 150 mg PO DAILY SIMRAN Stop: 08/21/22 08:59 Last Admin: 07/22/22 08:51 Dose: 150 mg
[2022-07-22] MEDS: ENOXAPARIN INJ 40 MG/0.4 ML SYR SQ SCH (17:50)
[2022-07-23] MEDS: AMPICILLIN/SULBACTAM SOD 3,000 MG in 0.9 % SODIUM CHLORIDE 100 ML IV SCH ×2 (05:32→11:04)
[2022-07-23 06:21] LABS: Basophils # (auto) 0.03 K/uL (0-0.2); Basophils % (auto) 0.8 %; Eosinophils # (auto) 0.13 K/uL (0-0.50); Eosinophils % (auto) 3.4 %; Hematocrit (blood only) 37.1 % (34.1-44.9); Hemoglobin 12.7 g/dl (12.0-16.0); Immature Granulocytes # (auto) 0.01 K/uL (0.00-0.02); Immature Granulocytes % (auto) 0.3 %; Lymphocytes # (auto) 0.77 K/uL (1.2-3.4); Lymphocytes % (auto) 20.4 %; Mean Corpuscular Hemoglobin 35.9 pg (25.0-34.0); Mean Corpuscular Hgb Conc 34.2 g/dL (32.0-36.0); Mean Corpuscular Volume 104.8 fL (80.0-100.0); Mean Platelet Volume 10.5 fL (9.4-12.3); Monocytes # (auto) 0.68 K/uL (0.24-0.82); Neutrophils # (auto) 2.15 K/uL (1.4-6.5); Neutrophils % (auto) 57.1 %; Platelet Count 164 K/uL (130-400); RDW Coefficient of Variation 11.8 % (11.5-14.5); RDW Standard Deviation 45.3 fL (36.4-46.3); Red Blood Count 3.54 M/uL (3.93-5.22); White Blood Count 3.77 K/ul (4.8-10.8)
[2022-07-23 06:44] LABS: BUN Creatinine Ratio 12.3 (10-20); Calcium 8.6 mg/dl (8.5-10.1); Creatinine Clr Calc Pharmacy 111.4 ml/min; Est GFR (African American) 110.4 ml/min; Est GFR (Non-African American) 95.3 ml/min; Potassium 3.4 mmol/L (3.5-5.1)
[2022-07-23] MEDS ORDERED: POTASSIUM CHLORIDE CRTAB 20 MEQ TABCR PO STA (08:00)
[2022-07-23] MEDS: THIAMINE HCL 100 MG TAB PO SCH (08:30)
[2022-07-23] MEDS: VENLAFAXINE HCL XR 150 MG CAPXR PO SCH (08:30)
[2022-07-23] MEDS: FOLIC ACID 1 MG TAB PO SCH (08:30)
[2022-07-23] MEDS: SACCHAROMYCES BOULARDII 250 MG CAP PO SCH (10:16)
--- NOTE | 2022-07-23 12:11 | Hospitalist Progress Note ---
Date of Service July 23, 2022 Assessment & Plan (1) Cat bite: (2) Cellulitis of right upper extremity: Plan: Patient is 67 y/o F with PMH HLD, depression, alcohol use, right breast cancer s/p chemo, radiation, LYNETTE, obesity s/p gastric bypass presented to ER with c/o cat bite and right hand redness x 2 days. Pt's Indoor pet cat reportedly up to date on vaccinations. 07/19/22 urgent care and started on Augmentin and has taken 3 doses with increased redness past 24 hours. No h/o MRSA In ER afebrile. No leukocytosis Right hand Xray: Mild dorsal soft tissue swelling within the right hand. No underlying bony abnormality In ER given 1L NSS, Rocephin, Vancomycin Pt up to date on Tdap - 06/08/22 Blood cultures obtained after initial antibiotics given in ER Has been on intravenous Unasyn since admission and the bite area with adjoining redness have improved a lot Swelling has decreased and no evidence of any abscess locally Advised to keep the hand elevated We will continue IV antibiotic for now and likely to discharge on oral Augmentin to complete a total of 10 days course of antibiotic Her right hand bite has improved a lot-has about 1 to 2 cm area of swelling and redness on dorsum of right hand without any fluctuation Surrounding inflammation has resolved She will be discharged this afternoon and will finish her Augmentin which was prescribed as an outpatient She was advised to keep her hand elevated to decrease edema and pain (3) Elevated blood pressure reading: Plan: BP elevated in ER. Likely situational. No h/o HTN Blood pressure is controlled (4) Hyperlipidemia: Plan: Rosuvastatin recently prescribed however pt has not started taking yet (5) Depression: Plan: Continue venlafaxine (6) Breast cancer: Plan: Right breast cancer s/p chemo, radiation (7) Obesity: Plan: S/P gastric bypass (8) Sleep apnea: Plan: Not on CPAP (9) Alcohol use: Plan: Reports 1 glass wine daily. Denies history alcohol withdrawal Noted to have tachycardia may be from withdrawal symptoms Tachycardia seems to be resolving DVT Prophylaxis Lovenox SQ Full Code as per discussion with pt Follows with Dr Iverson for routine care Likely discharge tomorrow Admission and Anticipated Discharge Date Admission Date: July 21, 2022 Subjective 07/22/2022 The patient was seen and examined in telemetry unit She has been feeling much better Right hand is improved with less swelling and less inflammation around the lesion on the dorsum of right hand Denies any other symptom 07/23/2022 The patient was seen and examined in telemetry unit She has been feeling much better and the right dorsum of hand has improved a lot Denies any fever and or chills She is ready to be discharged Review of Systems Review of Systems: All systems reviewed and are unremarkable except as noted below Physical Exam Physical Exam: Lying in bed comfortably Constitutional: well developed, well nourished, + ill appearing and + obese Eyes: PERRL, conjunctivae normal, anicteric sclerae ENMT: external ear and nose normal, oropharynx normal Neck: trachea midline, no thyromegaly Respiratory: no respiratory distress Auscultation: lungs clear to auscultation bilaterally Cardiovascular: Rate/Rhythm: regular rate, regular rhythm and + tachycardic Heart Sounds: normal S1 and normal S2; no murmur Extremities: no edema Gastrointestinal (Abdomen): Inspection/Auscultation: normal bowel sounds; abdomen not distended Percussion/Palpation: abdomen soft; abdomen nontender Musculoskeletal: Extremities: + limited ROM of upper extremity (Small swelling with redness without any fluctuation on dorsum of right hand) Neurologic: normal touch/pain/proprioception and moves all extremities; no focal motor deficits Psychiatric: A+Ox3, euthymic affect Lymphatic: no cervical or axillary lymphadenopathy Results & Data Results & Data ([facility]) Vital Signs (Past 12 Hours) Vital Signs Temp Pulse Pulse Resp BP BP Pulse Ox 07/23/22 11:06 36.8 C 85 16 154/76 H 97 07/23/22 07:00 77 07/23/22 07:06 36.9 C 85 16 153/89 H 97 07/23/22 04:14 36.7 C 91 H 16 153/85 H 94 O2 Del Method 07/23/22 11:06 Room Air 07/23/22 07:00 07/23/22 07:06 Room Air 07/23/22 04:14 Room Air Laboratory Results Short CBC 07/23/22 Range/Units 05:52 WBC 3.77 L (4.8-10.8) K/ul Hgb 12.7 (12.0-16.0) g/dl Hct 37.1 (34.1-44.9) % Plt Count 164 (130-400) K/uL [facility] 07/23/22 05:52 Sodium 138 Potassium 3.4 L Chloride 104 Carbon Dioxide 28 BUN 7 Creatinine 0.57 L Glucose 112 H Calcium 8.6 Medications Administered Short CBC 07/23/22 Range/Units 05:52 WBC 3.77 L (4.8-10.8) K/ul Hgb 12.7 (12.0-16.0) g/dl Hct 37.1 (34.1-44.9) % Plt Count 164 (130-400) K/uL [facility] 07/23/22 05:52 Sodium 138 Potassium 3.4 L Chloride 104 Carbon Dioxide 28 BUN 7 Creatinine 0.57 L Glucose 112 H Calcium 8.6
--- NOTE | 2022-07-24 07:39 | Discharge Summary ---
Date of Service July 23, 2022 Admission HPI Per Admitting Provider Patient is 67 y/o F with PMH HLD, depression, alcohol use, right breast cancer s/p chemo, radiation, LYNETTE, obesity s/p gastric bypass presented to ER with c/o cat bite and right hand redness x 2 days. Patient states 2 days ago her pet cat bit her right hand after patient "spooked" cat by walking by it. It is inside cat only and reports is up to date on vaccinations. Patient's last Tdap on 06/08/22. She states later in day after cat bite had some redness to dorsal aspect of right hand and was seen at urgent care 07/19/22 for cat bite and was started on Augmentin. She has taken 3 doses of Augmentin. States past 24 hours with increased redness extending up her right forearm and down into her fingers. Has increased discomfort with flexing and extending wrist and fingers. Reports some numbness/tingling sensation to all of her fingers. Denies any noted discharge. Taking Tylenol and ibuprofen with moderate relief of discomfort. Reports pain 3/10 on pain scale. Today with some loose stools. Denies history of MRSA. Denies fever/chills, diaphoresis, N/V, melena, hematochezia, JOYNER, dizziness, syncope, vision changes, neck pain, CP, SOB, orthopnea, palpitations, cough, sore throat, choking, otalgia, rhinorrhea, abdominal pain, weakness, other extremity edema, other rashes, urinary symptoms. Admission Exam Per Admitting Provider Physical Exam: General: no distress, WDWN Head: normocephalic, atraumatic Eyes: conjunctiva non-injected, anicteric ENT: normal inspection external ears, nose, mucous membranes moist Neck: supple, trachea midline Lungs: clear, no respiratory distress, no wheezing/rhonchi/rales CV: RRR, no murmur, no pretibial edema Abd: normal BS, soft, non-tender Ext: no cyanosis, no calf tenderness; RUE: right dorsal hand with several puncture wounds with surrounding erythema and edema (previous skin marker in place) without fluctuance, erythema and warmth extends proximally to dorsal and ulnar aspect of forearm and distally to fingers. (Area marked with skin marker) Max area of erythema measures approximately 24cm x 14cm. Able to flex and extend wrist and all digits. brisk capillary refill, sensation to light touch intact Neuro: A&O x 3, no focal deficits noted, normal affect Skin: warm, dry Principal Diagnosis Cat bite with cellulitis of the right upper extremity, hypertension Discharge Exam Lying in bed comfortably Constitutional well developed, well nourished, + ill appearing and + obese Eyes PERRL, conjunctivae normal, anicteric sclerae ENMT external ear and nose normal, oropharynx normal Neck trachea midline, no thyromegaly Respiratory no respiratory distress Auscultation: lungs clear to auscultation bilaterally Cardiovascular Rate/Rhythm: regular rate, regular rhythm and + tachycardic Heart Sounds: normal S1 and normal S2; no murmur Extremities: no edema Gastrointestinal (Abdomen) Inspection/Auscultation: normal bowel sounds; abdomen not distended Percussion/Palpation: abdomen soft; abdomen nontender Musculoskeletal Extremities: + limited ROM of upper extremity (Small swelling with redness without any fluctuation on dorsum of right hand) Neurologic normal touch/pain/proprioception and moves all extremities; no focal motor deficits Psychiatric A+Ox3, euthymic affect Lymphatic no cervical or axillary lymphadenopathy Discharge Data Allergies Allergy/AdvReac Type Severity Reaction Status Date / Time No Known Allergies Allergy Verified 11/17/18 06:14 Consultations 07/21/22 13:23 ED Decision to Admit Stat Hospital Course (1) Cat bite: (2) Cellulitis of right upper extremity: Patient is 67 y/o F with PMH HLD, depression, alcohol use, right breast cancer s/p chemo, radiation, LYNETTE, obesity s/p gastric bypass presented to ER with c/o cat bite and right hand redness x 2 days. Pt's Indoor pet cat reportedly up to date on vaccinations. 07/19/22 urgent care and started on Augmentin and has taken 3 doses with increased redness past 24 hours. No h/o MRSA In ER afebrile. No leukocytosis Right hand Xray: Mild dorsal soft tissue swelling within the right hand. No underlying bony abnormality In ER given 1L NSS, Rocephin, Vancomycin Pt up to date on Tdap - 06/08/22 Blood cultures obtained after initial antibiotics given in ER Has been on intravenous Unasyn since admission and the bite area with adjoining redness have improved a lot Swelling has decreased and no evidence of any abscess locally Advised to keep the hand elevated We will continue IV antibiotic for now and likely to discharge on oral Augmentin to complete a total of 10 days course of antibiotic Her right hand bite has improved a lot-has about 1 to 2 cm area of swelling and redness on dorsum of right hand without any fluctuation Surrounding inflammation has resolved She will be discharged this afternoon and will finish her Augmentin which was prescribed as an outpatient She was advised to keep her hand elevated to decrease edema and pain (3) Elevated blood pressure reading: BP elevated in ER. Likely situational. No h/o HTN Blood pressure is controlled (4) Hyperlipidemia: Rosuvastatin recently prescribed however pt has not started taking yet (5) Depression: Continue venlafaxine (6) Breast cancer: Right breast cancer s/p chemo, radiation (7) Obesity: S/P gastric bypass (8) Sleep apnea: Not on CPAP (9) Alcohol use: Reports 1 glass wine daily. Denies history alcohol withdrawal Noted to have tachycardia may be from withdrawal symptoms Tachycardia seems to be resolving DVT Prophylaxis Lovenox SQ Full Code as per discussion with pt Follows with Dr Iverson for routine care Likely discharge tomorrow Total Time Total Time Spent Total Time Spent (In Minutes): 35 minutes Discharge Plan Discharge Items Patient Disposition: Home - Self-Care Reason For Visit: CAT BITE, CELLULITIS Discharge Diagnosis: Cat bite with cellulitis of the right upper extremity, hypertension Condition on Discharge: Good Activity: Resume your previous activity Non-emergency contact: Primary Care Provider Call non-emergency contact if: you have any medication questions and your symptoms worsen Follow-up/Referrals: Terrence Iverson DO [Primary Care Provider] - (Date & Time 07/29/2022 11:20 AM Provider Terrence Iverson DO Department Family Practice [facility] ) Diet: Heart Healthy and Low Sodium (2gm) Addtl Attending Provider Instructions: Please finish your course of antibiotic as as prescribed Try to keep your hand elevated when possible Please give appointment with your primary care provider Pending Studies at Discharge: No Stand-Alone Forms: My [employer], Smoking Cessation Medications and DC Order Prescriptions: Continued venlafaxine 150 mg capsule,extended release 24hr 150 mg PO DAILY amoxicillin-pot clavulanate 875-125 mg tablet 1 tab PO BID Rx Instructions: Started 07/19/22 for 7 day course rosuvastatin 10 mg tablet 10 mg PO DAILY Discharge Orders: Discharge Order (Routine); Ordered 07/23/22 Ordered By: Ortiz Andres Admission Data Admit Date/Time: 07/21/22 14:11 Attending Provider: Ortiz Andres Admit Provider: Rudi Quiros Primary Care Provider: Terrence Iverson Other Providers: Rudi Quiros Other Interventions: Discharge Summary Assessment (RN) Last Done: 07/23/22 12:24
== END 2022-07-23 12:57 | disposition home or self-care (01) | DRG 603 ==
LOC: ED 11:05 → EDINP 14:11 → SUATTDRO 14:11 → 3E 16:56 → 2E 22:32

== ENCOUNTER 2024-02-23 08:59 | Inpatient (IN) ==
--- NOTE | 2024-02-23 09:40 | Emergency Department Note ---
Impression & Plan Trimalleolar fracture of right ankle, Fall ED Provider Note NAME: NARENDRA PEREZ AGE: 69 SEX: F : 1955 ARRIVES VIA: Ambulance INFORMANT: Patient ED PROVIDER(S): Leon Barba MD CHIEF COMPLAINT: Fall, right ankle pain PLAN: Disposition: Admit MEDICAL DECISION MAKING: The patient is a pleasant 69-year-old woman with a past medical history of hypertension, hyperlipidemia, LYNETTE, alcohol use who presents to the emergency department via EMS for evaluation of right ankle pain and deformity which occurred when she was standing supporting her right foot on a stool while she was cutting her nails when her foot slipped off and she fell to the ground twisting her ankle. She was unable to bear weight subsequently. She denies any head strike or loss of consciousness. She denies any neck or back pain. On evaluation the patient is uncomfortable no distress, afebrile stable vital signs. She has gross deformity the right ankle with tenting of the medial malleolus with intact skin. Again resolved after reduction. She has palpable PT pulse and initial equivocal DP pulse on Doppler but with normal capillary refill and DP pulse with good signal subsequently following reduction. Patient was consented for closed reduction at bedside and morphine was provided for pretreatment. This was successful per procedure note with improved alignment though still with evidence of ankle mortise widening. I did review the patient's case with orthopedic surgery on-call, Dr. Herron, who was able to review images from today from pre and postreduction. Given the patient does not feel she would be stable with crutches or even a walker in her current state agrees with plan for admission to medicine service and he will evaluate the patient later today and attempt to add the patient onto the OR schedule tomorrow if it is possible. Appreciate consultation and recommendations. Lab work was obtained and was unremarkable with WBC, H/H and platelets, limits. Chemistry without metabolic acidosis. Electrolytes and LFTs unremarkable. EKG without overt acute ischemia. Case was discussed with Barrera Blankenship, with Barrera Dutta hospitalist who will evaluate the patient for admission. Triage Nursing notes reviewed and agree them. Prior/external medical records reviewed Vital Signs: reviewed Differential diagnosis: Fracture, subluxation, dislocation, contusion, ligamentous injury, neurovascular, compartment syndrome, rhabdomyolysis, as well as other pathologies. ER treatment provided: See below. Diagnostics interpreted by me: ECG: Normal sinus rhythm, 80 bpm, no ectopy, no overt ST elevation or depression, QTc 449 QRS 76. Cardiac Monitoring: An order for continuous cardiac monitoring was placed and demonstrated Normal sinus rhythm, 80 bpm, no ectopy. Laboratory studies: See below Imaging studies: See below Consultation(s): Dr. Gopal SPEARS orthopedics on-call. Barrera Blankenship, with Barrera Dutta hospitalist HPI: The patient is a pleasant 69-year-old woman with a past medical history of hypertension, hyperlipidemia, LYNETTE, alcohol use who presents to the emergency department via EMS for evaluation of right ankle pain and deformity which occurred when she was standing supporting her right foot on a stool while she was cutting her nails when her foot slipped off and she fell to the ground twisting her ankle. She was unable to bear weight subsequently. She denies any head strike or loss of consciousness. She denies any neck or back pain. ROS: See above HPI for pertinent positives & negatives. A total of 10 systems reviewed and were otherwise negative. VITALS:See Below PHYSICAL EXAMINATION: GENERAL: Awake, alert, uncomfortable-appearing, in no distress HENT: Normocephalic, atraumatic. Oropharynx unremarkable. EYES: Normal conjunctiva. Sclera non-icteric. NECK: Supple. No nuchal rigidity. FROM. No JVD. RESPIRATORY: Clear to auscultation. CARDIAC: Regular rate, normal rhythm. Extremities warm and well perfused. Pulses equal. ABDOMEN: Soft, non-distended. No tenderness to palpation. No rebound or guarding. No masses. MUSCULOSKELETAL: Chest examination reveals no tenderness. The back is symmetrical on inspection without obvious abnormality. There is no CVA tenderness to palpation. Gross deformity the right ankle with tenting of the medial malleolus with intact skin, tenting resolved after reduction. She has palpable PT pulse and initial equivocal DP pulse on Doppler but with normal capillary refill and DP pulse with good signal subsequently following reduction. LOWER EXTREMITIES: Calves are equal size bilaterally and non-tender. No edema. No discoloration. NEURO: Normal sensorium. No sensory or motor deficits noted. SKIN: No rash or jaundice noted. ED COURSE: Procedures: Ankle Fracture Dislocation Reduction Indication: Right ankle fracture dislocation. Verbal consent obtained. Risks and benefits were explained with the usual customary discussion. Neurovascular examination before the procedure revealed no deficits. The right ankle fracture dislocation was reduced by placing the patient supine and applying gentle inline axial traction on the right forefoot foot and heel with slight plantar flexion while counter traction on the proximal tibia was applied and distal tibia stabilized with hip and knee in flexion. This resulted in reduction without complication. Post-reduction Xray demonstrates improved anatomic alignment with persistence of ankle mortise widening. Neurovascular examination after the procedure revealed no deficits. The patient had significant pain relief and tolerated the procedure well. Leon Barba MD Past Med/Surg History Medical History HTN (hypertension) Trimalleolar fracture Breast cancer Hyperlipidemia Pt has declined meds. Alcohol dependence Sleep apnea Mild per study 06/2018. Obesity DJD (degenerative joint disease) Osteoarthritis Cancer BREAST CANCER 2000 - LUMPECTOMY, CHEMO AND RADIATION Depression Surgical History History of colonoscopy H/O foot surgery RIGHT FOOT FOR HAMMERTOE Hx of lumpectomy RIGHT BREAST History of gastric bypass 2002 Family History Other Coronary heart disease Diabetes Social History Smoking Status: Never smoker Second Hand Exposure: No; Do You Dip or Chew Tobacco: No; Tobacco Cessation Education Requested by Patient: No Hx Alcohol Use: Yes Alcohol type: wine Hx Substance Use: No Preferred Language: Greenlandic Communication Ability: Effective 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 Beliefs That Will Affect Care: None marital status: Current Living Situation: Spouse Other Information That Helps Us Care for You: No Feels Safe at Home: Yes Safety Concerns: Feels Safe At This Time Assistive Devices: Glasses Allergies Allergies Allergy/AdvReac Type Severity Reaction Status Date / Time No Known Allergies Allergy Verified 02/23/24 11:47 Home Meds Home Medications Medication Instructions Recorded Confirmed venlafaxine 150 mg 150 mg PO QAM 07/21/22 02/23/24 capsule,extended release 24 hr tafluprost (PF) 0.0015 % eye drops 1 drp OPL HS 02/23/24 02/23/24 in a dropperette Results & Data (ED) Vital Signs Vital Signs - 24 hr 02/23/24 09:23 02/23/24 09:23 02/23/24 09:24 Temperature 36.6 C Temperature Source Oral Pulse Rate 81 83 Pulse Rate [Apical] 76 Respiratory Rate 18 18 Respiratory Effort / Characteristics Non-Labored Spontaneous Non-Labored Spontaneous Respiratory Depth Normal Normal Respiratory Pattern Regular Regular Blood Pressure 144/107 H Blood Pressure [Right Arm] 144/107 H Blood Pressure Mean 119 Blood Pressure Mean [Right Arm] 119 Blood Pressure Position Lying Blood Pressure Position [Right Arm] Lying Pulse Oximetry 95 99 Oxygen Delivery Method Room Air Room Air Sepsis Recent Fever Within 48 Hours No Sepsis New/Unexplained Change in Mental Status N/A Sepsis Action Taken by Nursing No Action Required 02/23/24 11:00 Temperature Temperature Source Pulse Rate Pulse Rate [Apical] 80 Respiratory Rate 18 Respiratory Effort / Characteristics Non-Labored Spontaneous Respiratory Depth Normal Respiratory Pattern Regular Blood Pressure Blood Pressure [Right Arm] 139/85 Blood Pressure Mean Blood Pressure Mean [Right Arm] 103 Blood Pressure Position Blood Pressure Position [Right Arm] Lying Pulse Oximetry 95 Oxygen Delivery Method Room Air Sepsis Recent Fever Within 48 Hours Sepsis New/Unexplained Change in Mental Status Sepsis Action Taken by Nursing Laboratory Data Attestation: I reviewed the patient's lab results. 02/23/24 09:20 02/23/24 09:20 Lab Results 02/23/24 Range/Units 09:20 WBC 7.77 (4.8-10.8) K/ul RBC 3.77 L (4.20-5.40) M/uL Hgb 13.5 (12.0-16.0) g/dl Hct 39.5 (37.0-47.0) % MCV 104.8 H (80.0-100.0) fL MCH 35.8 H (25.0-34.0) pg MCHC 34.2 (32.0-36.0) g/dL RDW Std Deviation 48.6 H (36.4-46.3) fL RDW Coeff of Maggy 12.5 (11.5-14.5) % Plt Count 245 (130-400) K/uL MPV 11.2 (9.4-12.4) fL Immature Gran % (Auto) 0.3 % Neut % (Auto) 77.9 % Lymph % (Auto) 9.0 % [place] % (Auto) 10.6 % Eos % (Auto) 1.4 % Baso % (Auto) 0.8 % Neut # (Auto) 6.06 (1.40-6.50) K/uL Lymph # (Auto) 0.70 L (1.20-3.40) K/uL [place] # (Auto) 0.82 H (0.11-0.59) K/uL Eos # (Auto) 0.11 (0.00-0.50) K/uL Baso # (Auto) 0.06 (0.00-0.20) K/uL Immature Gran # (Auto) 0.02 (0.01-0.20) K/uL PT 10.8 (9.0-12.0) Seconds INR 1.0 (0.9-1.1) Sodium 135 L (136-145) mmol/L Potassium 4.2 (3.5-5.1) mmol/L Chloride 101 (98-107) mmol/L Carbon Dioxide 23 (21-32) mmol/L Anion Gap 11 (3-11) BUN 14 (6-23) mg/dl Creatinine 0.81 (0.6-1.2) mg/dl Est Cr Clr Drug Dosing 72.2 ml/min Est GFR ( Amer) 85.3 ml/min Est GFR (Non-Af Amer) 73.6 ml/min BUN/Creatinine Ratio 17.3 (10-20) Glucose 92 (70-99(Fasting)) mg/dl Calcium 9.2 (8.6-10.3) mg/dl Total Bilirubin 0.5 (0.2-1.0) mg/dl Direct Bilirubin 0.1 (0-0.2) mg/dl AST 30 (13-39) U/L ALT 16 (7-52) U/L Alkaline Phosphatase 67 (34-104) U/L Total Protein 7.4 (6.0-8.3) gm/dl Albumin 4.0 (3.4-5.0) gm/dl Globulin 3.4 (2.5-4.0) gm/dl Albumin/Globulin Ratio 1.2 (0.9-2) Vitamin B12 113 L (180-914) pg/ml Administered Medications Folic Acid (Folic Acid 1 Mg Tab) 1 mg PO QAM [facility] Stop: 03/24/24 12:44 Last Admin: 02/23/24 13:44 Dose: 1 mg Documented By: BOBBY Gabapentin (Gabapentin 600 Mg Tab) 600 mg PO Q6H [facility] Stop: 02/24/24 02:01 Last Admin: 02/23/24 20:09 Dose: 600 mg Documented By: JAYCEE Acetaminophen (Ofirmev) 1,000 mg in 100 mls @ 400 mls/hr IV Q8H [facility] Stop: 02/26/24 18:59 Last Infusion: 02/23/24 18:35 Dose: Infused Documented By: Admin: 02/23/24 18:20 Dose: 400 mls/hr Documented By: DEREJE Ketorolac Tromethamine (Ketorolac Tromethamine 15 Mg/Ml Vial) 15 mg IV Q6H PRN PRN Reason: Pain Stop: 02/28/24 12:40 Last Admin: 02/23/24 13:46 Dose: 15 mg Documented By: BOBBY Miscellaneous (Tafluprost (Pf) 0.0015 % - Order Awaiting Action) 1 each N/A QS [facility] Stop: 03/24/24 15:59 Last Admin: 02/23/24 23:28 Dose: Not Given Documented By: Admin: 02/23/24 15:09 Dose: Not Given Documented By: BOBBY Morphine Sulfate (Morphine Sulfate 2 Mg/Ml Carp) 2 mg IV Q6H PRN PRN Reason: Pain Stop: 03/08/24 15:09 Last Admin: 02/23/24 22:47 Dose: 2 mg Documented By: Admin: 02/23/24 16:49 Dose: 2 mg Documented By: DEREJE Thiamine HCl (Thiamine Hcl 100 Mg Tab) 100 mg PO QAM [facility] Stop: 03/24/24 12:44 Last Admin: 02/23/24 13:44 Dose: 100 mg Documented By: BOBBY Discontinued Medications Gabapentin (Gabapentin 600 Mg Tab) 1,200 mg PO NOW ONE Stop: 02/23/24 12:46 Last Admin: 02/23/24 13:46 Dose: 1,200 mg Documented By: BOBBY Acetaminophen (Ofirmev) 1,000 mg in 100 mls @ 400 mls/hr IV NOW STA Stop: 02/23/24 11:20 Last Infusion: 02/23/24 11:38 Dose: Infused Documented By: Admin: 02/23/24 11:15 Dose: 400 mls/hr Documented By: BOBBY Morphine Sulfate (Morphine Sulfate 10 Mg/Ml Carp/Vial) 4 mg IM NOW STA Stop: 02/23/24 09:37 Last Admin: 02/23/24 10:01 Dose: 4 mg Documented By: BOBBY Morphine Sulfate (Morphine Sulfate 4 Mg/Ml 1 Ml Carp\Vial) 4 mg IV NOW STA Stop: 02/23/24 11:06 Last Admin: 02/23/24 11:15 Dose: 4 mg Documented By: BOBBY Morphine Sulfate (Morphine Sulfate 4 Mg/Ml 1 Ml Carp\Vial) 4 mg IV NOW STA Stop: 02/23/24 11:07 Last Admin: 02/23/24 11:15 Dose: Not Given Documented By: BOBBY Imaging Data Radiologist's Impression: Ankle X-Ray 02/23/24 09:36 XR ankle RT 2V CLINICAL HISTORY: Pain following fall. COMPARISON: None FINDINGS: There is an acute oblique displaced distal right fibular fracture. Fracture is displaced 2.4 cm. Displaced fracture of the medial malleolus is noted. This fracture is displaced 1.8 cm. There is also a suspected fracture of the posterior distal right tibia. Tibiotalar joint is disrupted. Ankle soft tissue swelling is present. Talar dome is intact. No calcaneal fracture. Small plantar calcaneal spur. IMPRESSION: Right ankle trimalleolar fracture/dislocation deformity, as described above. ACT 112: Negative or not required by law. Electronically signed by: Rickie Weiner M.D. 02/23/2024 10:52 AM Ankle X-Ray 02/23/24 11:03 XR ankle RT min 3V routine CLINICAL HISTORY: post reduction COMPARISON: Right ankle radiographs performed earlier today. FINDINGS: Overlying cast is noted. Alignment of the distal right fibular and tibial fractures has improved post reduction. Ankle mortise widening persists however has improved. Fine bony detail is diminished given overlying cast. Postoperative findings within the second and third metatarsals are incidentally noted, IMPRESSION: Improved alignment of the right ankle trimalleolar fracture/dislocation postreduction. ACT 112: Negative or not required by law. Electronically signed by: Rickie Weiner M.D. 02/23/2024 11:33 AM Discharge Plan Visit Data Chief Complaint: Ankle Pain Stated Complaint: R ANKLE FX ED Provider: Leon Barba Discharge Problem: Trimalleolar fracture of right ankle, Fall Patient Disposition: Admitted As Inpatient Discharge Instructions Interventions: ED Discharge Assessment Last Done: 02/23/24 16:28 Discharge Problem: Trimalleolar fracture of right ankle Qualifiers: Encounter type: initial encounter Fracture type: closed Qualified Code(s): S 82.851A - Displaced trimalleolar fracture of right lower leg, initial encounter for closed fracture Fall Qualifiers: Encounter type: initial encounter Qualified Code(s): W19.XXXA - Unspecified fall, initial encounter
[2024-02-23] MEDS: MoRPHine SULFATE 10 MG/ML CARP/VIAL IM STA (10:01)
--- NOTE | 2024-02-23 10:53 | XRay Report ---
XR ankle RT 2V CLINICAL HISTORY: Pain following fall. COMPARISON: None FINDINGS: There is an acute oblique displaced distal right fibular fracture. Fracture is displaced 2 .4 cm. Displaced fracture of the medial malleolus is noted. This fracture is displaced 1.8 cm. There is also a suspected fracture of the posterior distal right tibia. Tibiotalar joint is disrupted. Ankl e soft tissue swelling is present. Talar dome is intact. No calcaneal fracture. Small plantar calcane al spur. IMPRESSION: Right ankle trimalleolar fracture/dislocation deformity, as described above. ACT 112: Negative or not required by law. Electronically signed by: Rickie Weiner M.D. 02/23/2024 10:52 AM
[2024-02-23] MEDS: MoRPHine SULFATE 4 MG/ML 1 ML CARP\\VIAL IV STA ×2 (11:15)
[2024-02-23] MEDS: ACETAMINOPHEN 1,000 MG/100 ML VIAL IV STA (11:15)
--- NOTE | 2024-02-23 11:34 | XRay Report ---
XR ankle RT min 3V routine CLINICAL HISTORY: post reduction COMPARISON: Right ankle radiographs performed earlier today. FINDINGS: Overlying cast is noted. Alignment of the distal right fibular and tibial fractures has im proved post reduction. Ankle mortise widening persists however has improved. Fine bony detail is dimi nished given overlying cast. Postoperative findings within the second and third metatarsals are incid entally noted, IMPRESSION: Improved alignment of the right ankle trimalleolar fracture/dislocation postreduction. ACT 112: Negative or not required by law. Electronically signed by: Rickie Weiner M.D. 02/23/2024 11:33 AM
[2024-02-23 12:19] LABS: Basophils # (auto) 0.06 K/uL (0.00-0.20); Basophils % (auto) 0.8 %; Eosinophils # (auto) 0.11 K/uL (0.00-0.50); Eosinophils % (auto) 1.4 %; Hematocrit (blood only) 39.5 % (37.0-47.0); Hemoglobin 13.5 g/dl (12.0-16.0); Immature Granulocytes # (auto) 0.02 K/uL (0.01-0.20); Immature Granulocytes % (auto) 0.3 %; Mean Corpuscular Hemoglobin 35.8 pg (25.0-34.0); Mean Corpuscular Hgb Conc 34.2 g/dL (32.0-36.0); Mean Corpuscular Volume 104.8 fL (80.0-100.0); Mean Platelet Volume 11.2 fL (9.4-12.4); Monocytes # (auto) 0.82 K/uL (0.11-0.59); Monocytes % (auto) 10.6 %; Neutrophils # (auto) 6.06 K/uL (1.40-6.50); Neutrophils % (auto) 77.9 %; Platelet Count 245 K/uL (130-400); RDW Coefficient of Variation 12.5 % (11.5-14.5); RDW Standard Deviation 48.6 fL (36.4-46.3); Red Blood Count 3.77 M/uL (4.20-5.40); White Blood Count 7.77 K/ul (4.8-10.8)
[2024-02-23 12:22] LABS: Prothrombin Time 10.8 Seconds (9.0-12.0)
[2024-02-23] MEDS ORDERED: POLYETHYLENE (MIRALAX) 17 GM PACK PO PRN (12:24)
[2024-02-23] MEDS ORDERED: ACETAMINOPHEN 325 MG TAB PO PRN (12:24)
[2024-02-23] MEDS ORDERED: MAGNESIUM HYDROXIDE SUSP 30 ML UDC PO PRN (12:24)
[2024-02-23] MEDS ORDERED: ALUMINUM/MAGNESIUM SUSP 30 ML UDC PO PRN (12:24)
[2024-02-23] MEDS ORDERED: ONDANSETRON INJ 2 MG/ML 2 ML VIAL IV PRN (12:24)
[2024-02-23 12:27] LABS: Albumin Globulin Ratio 1.2 (0.9-2); BUN Creatinine Ratio 17.3 (10-20); Bilirubin,Total 0.5 mg/dl (0.2-1.0); Calcium 9.2 mg/dl (8.6-10.3); Creatinine Clr Calc Pharmacy 72.2 ml/min; Est GFR (African American) 85.3 ml/min; Est GFR (Non-African American) 73.6 ml/min; Globulin 3.4 gm/dl (2.5-4.0); Potassium 4.2 mmol/L (3.5-5.1); Total Protein 7.4 gm/dl (6.0-8.3)
[2024-02-23] MEDS ORDERED: ACETAMINOPHEN 1,000 MG/100 ML VIAL IV PRN (12:32)
--- NOTE | 2024-02-23 12:32 | History & Physical Report ---
Date of Service February 23, 2024 Assessment & Plan (1) Trimalleolar fracture: (2) HTN (hypertension): (3) Depression: (4) Alcohol use: Plan 69 y/o F that presents to the ED after her right foot slipped off of the foot stool in her bathroom while she was clipping her toenails. She was in her bathroom clipping her toenails and her foot slipped off the stool. She does not use any assistance devices at baseline. Pt has a history of breast cancer and HTN, and depression. Trimaleolar fracture identified on x-ray. Ankle was reduced and placed in a cast; Improved alignment of the right ankle trimalleolar fracture/dislocation postreduction on repeat ankle x-ray. She takes Effexor 150 mg QAM. She takes her Albuterol PRN but has not used it in a while. Reportedly drinks 1 bottle of wine daily. Per patient and no known tremors or withdrawal effects from alcohol in the past. Discussed with Dr. Herron for surgical repair hopefully tomorrow 02/23 pending OR scheduling. Ortho will place their own preop antibiotics orders. Patient will be admitted to the ED for further evaluation and management of her right trimaleolar fracture. N.p.o. after midnight, formal orthopedics consultation placed, pain control with schedule Tylenol and Ketorolac. ECG for preop clearance. Due to daily alcohol use, will add AWSS scale with gabapentin taper and p.o. thiamine and folic acid. Trimalleolar fracture: Acute Right Ankle x-ray: There is an acute oblique displaced distal right fibular fracture. Fracture is displaced 2.4 cm. Displaced fracture of the medial malleolus is noted. This fracture is displaced 1.8 cm. There is also a suspected fracture of the posterior distal right tibia. Tibiotalar joint is disrupted. Ankle soft tissue swelling is present. Talar dome is intact. No calcaneal fracture. Small plantar calcaneal spur. NPO after MN for possible surgery tomorrow 02/24/[address] Herron Formal Orthopedic consultation placed EKG ordered for preop clearance Received morphine and Tylenol in ED. Continue pain control with scheduled Tylenol and Ketorolac PRN Alcohol use: Acute Drinks 1 bottle of wine daily AWSS scale ordered with gabapentin taper Thiamine and folic acid p.o. ordered daily Alcohol cessation recommended No history of tremors or withdrawal effects HTN: Chronic Was prescribed lisinopril but stopped taking it on her own due to "cramping" Normotensive in ED Depression: Chronic Takes Effexor; continue Disposition: PCP: Dr. Iverson CODE STATUS: Full code VTE prophylaxis: Teds and SCDs for now I spent a total of 87 minutes coordinating, documenting, and providing care for this patient excluding time spent in the performance of separately billed services. All of the aforementioned completed while collaborating with the assigned attending physician for a full treatment plan. Please see their addendum for further details. History of Present Illness Chief Complaint: s/p fall trimaleolar fracture Primary Care Provider: Terrence Iverson DO Ms. Dickinson is a 69 year old female that presents to the ED after her foot slipped off of the foot stool in her bathroom while she was clipping her toenails. She was in her bathroom clipping her toenails and her foot slipped off the stool. She does not use any assistance devices at baseline. Pt has a history of breast cancer and HTN, and depression. She has not been taking her Lisinopril as she states that she had 'cramps'. Currently normotensive in the ED. Ankle xray in ED revealed an acute oblique displaced distal right fibular fracture. Fracture is displaced 2.4 cm. Displaced fracture of the medial malleolus is noted. This fracture is displaced 1.8 cm. There is also a suspected fracture of the posterior distal right tibia. Tibiotalar joint is disrupted. Ankle soft tissue swelling is present. Talar dome is intact. No calcaneal fracture. Small plantar calcaneal spur Ankle was reduced and placed in a cast; Improved alignment of the right ankle trimalleolar fracture/dislocation postreduction on repeat ankle x-ray. She takes Effexor 150 mg QAM. She takes her Albuterol PRN but has not used it in a while. Pt denies JOYNER, dizziness, lightheadedness, chest pain, palpitations, abdominal pain or tenderness, urine or bowel changes, visual or auditory changes, other recent falls or trauma. Denies tobacco and recreational drug use. Reportedly drinks 1 bottle of wine daily. Per patient and no known tremors or withdrawal effects from alcohol in the past. Discussed with Dr. Herron for surgical repair hopefully tomorrow 02/23 pending OR scheduling. Ortho will place their own preop antibiotics orders. Patient will be admitted to the ED for further evaluation and management of her trimaleolar fracture. N.p.o. after midnight, formal orthopedics consultation placed, pain control with schedule Tylenol and Ketorolac. ECG for preop clearance. Due to daily alcohol use, will add AWSS scale with gabapentin taper and p.o. thiamine and folic acid. Allergies Allergy/AdvReac Type Severity Reaction Status Date / Time No Known Allergies Allergy Verified 02/23/24 11:47 Home Medications Medication Instructions Recorded Confirmed Type venlafaxine 150 mg 150 mg PO QAM 07/21/22 02/23/24 History capsule,extended release 24 hr tafluprost (PF) 0.0015 % eye drops 1 drp OPL HS 02/23/24 02/23/24 History in a dropperette Past Med/Surg History Medical History HTN (hypertension) Trimalleolar fracture Breast cancer Hyperlipidemia Pt has declined meds. Alcohol dependence Sleep apnea Mild per study 06/2018. 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 Collado addendum for physical examination findings RLE with cast in place; increased pain in RLE. Able to wiggle toes. Psych: euthymic mood Results & Data Results & Data Vital Signs (Past 12 Hours) Vital Signs Temp Pulse Pulse Resp BP BP Pulse Ox 02/23/24 11:00 80 18 139/85 95 02/23/24 09:24 83 02/23/24 09:23 76 18 144/107 H 99 02/23/24 09:23 36.6 C 81 18 144/107 H 95 O2 Del Method 02/23/24 11:00 Room Air 02/23/24 09:24 02/23/24 09:23 Room Air 02/23/24 09:23 Room Air Laboratory Results Short CBC 02/23/24 Range/Units 09:20 WBC 7.77 (4.8-10.8) K/ul Hgb 13.5 (12.0-16.0) g/dl Hct 39.5 (37.0-47.0) % Plt Count 245 (130-400) K/uL BMP 02/23/24 09:20 Sodium 135 L Potassium 4.2 Chloride 101 Carbon Dioxide 23 BUN 14 Creatinine 0.81 Glucose 92 Calcium 9.2 Liver Function 02/23/24 Range/Units 09:20 Total Bilirubin 0.5 (0.2-1.0) mg/dl AST 30 (13-39) U/L ALT 16 (7-52) U/L Alkaline Phosphatase 67 (34-104) U/L Albumin 4.0 (3.4-5.0) gm/dl Diagnostic Findings Ankle X-Ray 02/23/24 09:36 XR ankle RT 2V CLINICAL HISTORY: Pain following fall. COMPARISON: None FINDINGS: There is an acute oblique displaced distal right fibular fracture. Fracture is displaced 2.4 cm. Displaced fracture of the medial malleolus is noted. This fracture is displaced 1.8 cm. There is also a suspected fracture of the posterior distal right tibia. Tibiotalar joint is disrupted. Ankle soft tissue swelling is present. Talar dome is intact. No calcaneal fracture. Small plantar calcaneal spur. IMPRESSION: Right ankle trimalleolar fracture/dislocation deformity, as described above. ACT 112: Negative or not required by law. Electronically signed by: Rickie Weiner M.D. 02/23/2024 10:52 AM Ankle X-Ray 02/23/24 11:03 XR ankle RT min 3V routine CLINICAL HISTORY: post reduction COMPARISON: Right ankle radiographs performed earlier today. FINDINGS: Overlying cast is noted. Alignment of the distal right fibular and tibial fractures has improved post reduction. Ankle mortise widening persists however has improved. Fine bony detail is diminished given overlying cast. Postoperative findings within the second and third metatarsals are incidentally noted, IMPRESSION: Improved alignment of the right ankle trimalleolar fracture/dislocation postreduction. ACT 112: Negative or not required by law. Electronically signed by: Rickie Weiner M.D. 02/23/2024 11:33 AM Code Status & VTE Plan Code Status Full code in the event of cardiac or respiratory arrest VTE Prophylaxis Plan VTE Prophylaxis will be ordered: Yes Supervising Physician Co-Signing Physician Notes I have seen and discussed the case with the collaborating advanced practitioner. I agree with the above H&P. I have reviewed and confirmed the patients medical history, the findings on physical examination, and the patients diagnosis and treatment plan with Clau BOLTON and agree with the information documented. In short, Ms. Dickinson is a 69 year old woman with a history of htn, breast cancer s/p chemo, alcohol misuse, osteopenia who is admitted due to right trimalleolar fracture. Fracture reduced and placed in cast in ED. Patient noncompliant with HTN medications, stating lisinopril makes her feel "weird" Denies history of withdrawal from alcohol--however, drinks 1 bottle of wine a day. GENERAL APPEARANCE: AxOx4, generally well-appearing F, no acute distress. HEENT: NC, AT. MMM. EOMI, clear conjunctiva, oropharynx clear. NECK: Supple without lymphadenopathy. No stiffness or restricted ROM. HEART: Normal rate and regular rhythm, normal S1/S1, no m/r/g LUNGS: CTAB, moving air well. No crackles or wheezes are heard. ABDOMEN: Soft, nontender, nondistended with good bowel sounds heard. EXTREMITIES: Without cyanosis, clubbing or edema. right LE in cast, sensation and movement intact NEUROLOGICAL: Grossly nonfocal. Alert and oriented, moving all 4 extremities. CN not formally tested but appear grossly intact. Skin: Warm and dry without any rash. : #Right trimalleolar fracture pain control Ortho consult NPO at midnight, procedure likely tomorrow #HTN does not like ACEi would trial something else Consider agent upon discharge or during admission contingent on trends #Alcohol misuse 1 bottle wine daily AWSS, gabapentin taper for pain as well as withdrawal Rest of plan as above I spent a total of 35 minutes coordinating, documenting, and providing care for this patient excluding time spent in the performance of separately billed services. All of the aforementioned completed outside of collaborating with the assigned advanced practitioner for a full treatment plan. I have reviewed the advanced practitioner's documentation, and I agree with, and take responsibility for the plan of care
[2024-02-23] MEDS ORDERED: LORazepam 1 MG TAB PO PRN (12:45)
[2024-02-23] MEDS ORDERED: GABAPENTIN 1200MG ALCOHOL WITHDRAWAL LOAD PO STA (12:45)
[2024-02-23 13:18] LABS: Bilirubin Direct 0.1 mg/dl (0-0.2)
--- NOTE | 2024-02-23 13:39 | Orthopedic Consultation ---
Date of Consultation February 23, 2024 Assessment & Plan (1) Trimalleolar fracture: Patient will require Open reduction internal fixation right ankle trimalleolar fracture. Placed on the add-on list in the OR tomorrow with Dr Herron -Admitted to medicine service. Patient seen today in conjunction with Dr Herron, consent obtained by Dr. Herron. -Consent obtained -NPO at midnight tonight -Hold anticoagulants -SCDs/TEDS LLE -Vitals and labs stable -Will order Intra-op infection prophylaxis: 2 grams Cefazolin -NWB RLE, ICE, elevate -Pain control per primary Present on Admission?: Yes Supervising Physician Co-Signing Physician Notes I, Dr. Herron, saw and examined the patient. I discussed the management with my PA. I reviewed my PAs note and agree with the documented findings and attest to completing the substantive portion of medical decision making and plan of care I developed. History of Present Illness Reason for Consultation: ankle fracture Requesting Physician: Torey Herron MD History of Present Illness Patient is a 69-year-old female past medical history significant for breast cancer, hypertension and depression. She says that she was clipping her toenails today in her bathroom and she had her foot propped up on the stool and her foot slipped and she fell. She was seen in the emergency department where x-rays were taken that showed a trimalleolar fracture/dislocation. This was reduced in the ED and she was placed in a splint. She denies any numbness or tingling. Her pain is currently controlled. Allergies Allergy/AdvReac Type Severity Reaction Status Date / Time No Known Allergies Allergy Verified 02/23/24 11:47 Home Medications Medication Instructions Recorded Confirmed Type venlafaxine 150 mg 150 mg PO QAM 07/21/22 02/23/24 History capsule,extended release 24 hr tafluprost (PF) 0.0015 % eye drops 1 drp OPL HS 02/23/24 02/23/24 History in a dropperette Patient History Medical History HTN (hypertension) Trimalleolar fracture Breast cancer Hyperlipidemia Pt has declined meds. Alcohol dependence Sleep apnea Mild per study 06/2018. Obesity DJD (degenerative joint disease) Osteoarthritis Cancer BREAST CANCER 2000 - LUMPECTOMY, CHEMO AND RADIATION Depression Surgical History History of colonoscopy H/O foot surgery RIGHT FOOT FOR HAMMERTOE Hx of lumpectomy RIGHT BREAST History of gastric bypass 2002 Family History Other Coronary heart disease Diabetes Social History Smoking Status: Never smoker Second Hand Exposure: No; Do You Dip or Chew Tobacco: No; Tobacco Cessation Education Requested by Patient: No Hx Alcohol Use: Yes Alcohol type: wine Hx Substance Use: No Preferred Language: Telugu Communication Ability: Effective Tank Cooper Required: No Beliefs That Will Affect Care: None marital status: Current Living Situation: Spouse Other Information That Helps Us Care for You: No Feels Safe at Home: Yes Safety Concerns: Feels Safe At This Time Assistive Devices: Glasses Review of Systems Review of Systems: Per HPI Physical Exam Physical Exam: Patient is placed in a splint. This is fitting appropriately. Her proximal leg is soft and compressible. She is able to wiggle all 5 of her digits. Skin is pink, warm and perfusable. She has sensation intact distally to light touch. Calf is soft and non-tender. Results & Data Vital Signs (Past 12 Hours) Vital Signs Temp Pulse Pulse Resp BP BP Pulse Ox 02/23/24 13:29 81 02/23/24 12:59 69 18 153/88 H 97 02/23/24 11:00 80 18 139/85 95 02/23/24 09:24 83 02/23/24 09:23 76 18 144/107 H 99 02/23/24 09:23 36.6 C 81 18 144/107 H 95 O2 Del Method 02/23/24 13:29 02/23/24 12:59 Room Air 02/23/24 11:00 Room Air 02/23/24 09:24 02/23/24 09:23 Room Air 02/23/24 09:23 Room Air Laboratory Results 02/23/24 Range/Units 09:20 WBC 7.77 (4.8-10.8) K/ul RBC 3.77 L (4.20-5.40) M/uL Hgb 13.5 (12.0-16.0) g/dl Hct 39.5 (37.0-47.0) % MCV 104.8 H (80.0-100.0) fL MCH 35.8 H (25.0-34.0) pg MCHC 34.2 (32.0-36.0) g/dL RDW Std Deviation 48.6 H (36.4-46.3) fL RDW Coeff of Maggy 12.5 (11.5-14.5) % Plt Count 245 (130-400) K/uL MPV 11.2 (9.4-12.4) fL Immature Gran % (Auto) 0.3 % Neut % (Auto) 77.9 % Lymph % (Auto) 9.0 % [place] % (Auto) 10.6 % Eos % (Auto) 1.4 % Baso % (Auto) 0.8 % Neut # (Auto) 6.06 (1.40-6.50) K/uL Lymph # (Auto) 0.70 L (1.20-3.40) K/uL [place] # (Auto) 0.82 H (0.11-0.59) K/uL Eos # (Auto) 0.11 (0.00-0.50) K/uL Baso # (Auto) 0.06 (0.00-0.20) K/uL Immature Gran # (Auto) 0.02 (0.01-0.20) K/uL PT 10.8 (9.0-12.0) Seconds INR 1.0 (0.9-1.1) Sodium 135 L (136-145) mmol/L Potassium 4.2 (3.5-5.1) mmol/L Chloride 101 (98-107) mmol/L Carbon Dioxide 23 (21-32) mmol/L Anion Gap 11 (3-11) BUN 14 (6-23) mg/dl Creatinine 0.81 (0.6-1.2) mg/dl Est Cr Clr Drug Dosing 72.2 ml/min Est GFR ( Amer) 85.3 ml/min Est GFR (Non-Af Amer) 73.6 ml/min BUN/Creatinine Ratio 17.3 (10-20) Glucose 92 (70-99(Fasting)) mg/dl Calcium 9.2 (8.6-10.3) mg/dl Total Bilirubin 0.5 (0.2-1.0) mg/dl Direct Bilirubin 0.1 (0-0.2) mg/dl AST 30 (13-39) U/L ALT 16 (7-52) U/L Alkaline Phosphatase 67 (34-104) U/L Total Protein 7.4 (6.0-8.3) gm/dl Albumin 4.0 (3.4-5.0) gm/dl Globulin 3.4 (2.5-4.0) gm/dl Albumin/Globulin Ratio 1.2 (0.9-2) Vitamin B12 Pending Diagnostic Findings Ankle X-Ray 02/23/24 09:36 XR ankle RT 2V CLINICAL HISTORY: Pain following fall. COMPARISON: None FINDINGS: There is an acute oblique displaced distal right fibular fracture. Fracture is displaced 2.4 cm. Displaced fracture of the medial malleolus is noted. This fracture is displaced 1.8 cm. There is also a suspected fracture of the posterior distal right tibia. Tibiotalar joint is disrupted. Ankle soft tissue swelling is present. Talar dome is intact. No calcaneal fracture. Small plantar calcaneal spur. IMPRESSION: Right ankle trimalleolar fracture/dislocation deformity, as described above. ACT 112: Negative or not required by law. Electronically signed by: Rickie Weiner M.D. 02/23/2024 10:52 AM Ankle X-Ray 02/23/24 11:03 XR ankle RT min 3V routine CLINICAL HISTORY: post reduction COMPARISON: Right ankle radiographs performed earlier today. FINDINGS: Overlying cast is noted. Alignment of the distal right fibular and ti bial fractures has improved post reduction. Ankle mortise widening persists however has improved. Fine bony detail is diminished given overlying cast. Postoperative findings within the second and third metatarsals are incidentally noted, IMPRESSION: Improved alignment of the right ankle trimalleolar fracture/dislocation postreduction. ACT 112: Negative or not required by law. Electronically signed by: Rickie Weiner M.D. 02/23/2024 11:33 AM
[2024-02-23] MEDS: THIAMINE HCL 100 MG TAB PO SCH (13:44)
[2024-02-23] MEDS: FOLIC ACID 1 MG TAB PO SCH (13:44)
[2024-02-23] MEDS: KETOROLAC TROMETHAMINE 15 MG/ML VIAL IV PRN (13:46)
[2024-02-23] MEDS: GABAPENTIN 600 MG TAB PO ONE (13:46)
[2024-02-23] MEDS: MoRPHine SULFATE 2 MG/ML CARP IV PRN (16:49)
--- NOTE | 2024-02-23 16:50 | Electrocardiogram Report ---
Test Reason : Blood Pressure : / mmHG Vent. Rate : 080 BPM Atrial Rate : 080 BPM P-R Int : 116 ms QRS Dur : 076 ms QT Int : 390 ms P-R-T Axes : 041 007 039 degrees QTc Int : 449 ms Normal sinus rhythm When compared with ECG of 12-SEP-2022 22:12, No significant change was found Confirmed by Hiren Tomas ([id number]) on 02/23/2024 4:50:34 PM Referred By: REFERRED SELF Confirmed By:Dakota Tomas
[2024-02-23] MEDS: ACETAMINOPHEN 1,000 MG/100 ML VIAL IV SCH (18:20)
[2024-02-23] MEDS: GABAPENTIN 600 MG TAB PO SCH (20:09)
--- OUTSIDE RECORDS SUMMARY | 2024-02-23 21:16 | External Medical Summary | Summary of Care ---
Author Name Unknown Organization [facility] Address [address] [place] [address] Phone [phone] Care Team Providers Care Boot Maker Name Role Phone Unavailable Primary Care Provider Unavailabl e Encounter Details Date Type Department Care Team (Late st Contact Info) Description 11/01/2023 Orders Only Outcomes Research Department [address] [place], [place] [id number] Cherry Pedro CHRA [employer] Research Other*[id number] Allergies No known active allergiesdocumented as of this encounter (statuses as of 11/01/2023) Medications Medication Sig Dispensed Refills Start Date End Date Status Venlafaxine HCl ER 150 MG Oral Capsule Extended Release 24 Hour (Effexor XR)Indications:Episo de of recurrent major depressive disorder, unspecified depression episode severity (HCC) TAKE 1 CAPSULE BY MOUTH EVERY MORNING 90 Capsule 1 04/11/2023 Active Albuterol Sulfate HFA 108 (90 Base) MCG/ACT Inhalation Aerosol SolutionIndications: Mild intermittent reactive airway disease without complication Inhale 2 Puffs by mouth every 6 hours as needed for Cough, Shortness of Breath or Wheezing. 18 g 2 06/07/2023 Active Venlafaxine HCl ER 150 MG Oral Capsule Extended Release 24 Hour (Effexor XR)Indications:Mild episode of recurrent major depressive disorder (HCC) Take 1 Capsule by mouth in the morning. 90 Capsule 3 06/07/2023 Active Lisinopril 10 MG Oral Tablet (Prinivil)Indication s:HTN, goal below 130/80 Take 1 Tablet by mouth in the morning. 90 Tablet 3 06/07/2023 Active documented as of this encounter (statuses as of 11/01/2023) Active Problems Problem Noted Date Diagnosed Date Recurrent major depressive disorder 07/29/2022 History of breast cancer 07/02/2019 Overview: Upper outer quadrant R breast, +estrogen receptor LYNETTE (obstructive sleep apnea) 07/17/2018 Other specified glaucoma 07/17/2018 Hyperlipidemia LDL goal <100 07/09/2015 Alcohol dependence, continuous 01/29/2014 Adjustment disorder with depressed mood 06/29/20 11 ADVANCE DIRECTIVE INFORMATION 05/02/2006 Overview: Pt has one, will bring copy documented as of this encounter (statuses as of 11/01/2023) Resolved Problems Problem Noted Date Diagnosed Date Resolved Date Malignant neoplasm of female breast 05/02/2006 07/02/2019 Overview: Ductal carcinoma in 2000 Pernicious anemia 05/02/2006 07/07/2009 Overview: Due to gastric bypass documented as of this encounter (statuses as of 11/01/2023) Immunizations Name Administration Dates Next Due Pneumococcal Conjugate Vacci ne, 20-valent ([id number]) 04/14/2022 Pneumococcal Polysaccharide PPV23 (Pneumovax) 11/08/2017 Season Influenza, Quad, PF, Adjuvanted, 65+ Yrs, IM (FLUAD) 08/13/2020 Seasonal Influenza, PF, 6 M & above, IM , (FluLaval or Fluzone) 07/17/2018,08/12/2017 Seasonal Influenza, Quadriva lent Hd (Fluzone Hd) 07/29/2022,08/13/2021 Seasonal Influenza, Split, I IV3, With Preserve, Inj 11/21/2013,10/12/2012,08/21/2010 Seasonal Influenza, Trivalen t, High Dose, No Preserve, IM 07/18/2019 TDAP (age 10 and older)(Boostrix) 06/17/2022 TDAP (age 11 and older)(Adacel) 06/29/2011 Varicella Zoster Vaccine (Adult) 07/09/2015 Zoster Vaccine Recombinant (Shingrix) 10/18/2019 ,07/18/2019 documented as of this encounter Social History Tobacco Use Types Packs/Day Years Used Date Smoking Tobacco: Never Passive Smoke Exposure: Past Smokeless Tobacco: Never Alcohol Use Standard Drinks/Week Comments Not Currently 7 (1 standard drink = 0.6 oz pur e alcohol) 1 bottle wine per day AUDIT-C Answer Date Recorded Q1: How often do you have a drink containing alcohol? 4 or more times a week 01/29/2021 Q2: How many drinks containi ng alcohol do you have on a typical day when you are drinking? 1 or 2 Q3: How often do you have si x or more drinks on one occasion? Not asked 01/29/2021 PHQ-2 Answer Date Recorded PHQ Adult Total Score 0 04/15/2023 Hunger Vital Sign Answer Date Recorded Within the past 12 months, y ou worried that your food would run out before you got the money to buy more. Never true 04/15/20 23 Within the past 12 months, t he food you bought just didn't last and you didn't have money to get more. Never true 04/15/2023 Sex and Gender Information Value Date Recorded Sex Assigned at Female 04/14/2022 9:44 AM EDT Gender Identity Female 04/14/2022 9:44 AM EDT Sexual Orientation Straight 04/14/2022 9: 44 AM EDT Job Start Date Occupation Industry Not on file Not on file Not on file documented as of this encounter Plan of Treatment Upcoming Encounters Date Type Department Care Team (Late st Contact Info) Description 04/16/2024 8:15 AM EDT Imaging Radiology [facility] 1st Floor, [place] [address] [facility] [place] [id number] 04/16/2024 10:30 AM EDT Nurse Only Ancillary [facility] [address] [facility] [place] [address] [facility], Nurse Annual Wellness [facility] [address] [facility] [place] [id number] Scheduled Orders Name Type Priority Associated Diagnoses Orde r Schedule MYCODE SUBSEQUENT ADULT Lab Routine [employer] Research Other*[id number] Every 6 Months for 2 Occurrences starting 11/01/2023 until 11/20/2024 Scheduled Procedures Name Priority Associated Diagnoses Date/Ti me COLONOSCOPY FLEXIBLE PROXIMA L DIAGNOSTIC Recall Special screening for malignant neoplasms, colon Health Maintenance Due Date Last Done Comments COVID-19 Vaccine (#1) 1954 Cologuard 1999 Sigmoidoscopy 1999 Fecal Occult Blood Test 12/15/2008 12/15/2007 Influenza Vaccine (FLU shot) (#1) 2023 07/29/2022, 08/13/2021, 08/13/2020, Additional history exists Colonoscopy 02/29/2024 02/28/2014, 02/28/2014 Colorectal Cancer Screening 02/29/2024 Depression Screening 04/15/2024 04/15/2023, 07/17/20 18 Mammogram 04/15/2024 04/15/2023, 06/07/2023, 04/27/2022, Additional history exists DXA Scan 04/19/2026 04/19/2023, 04/07, 05/15/2019, Additional history exists Diabetes Screening 06/03/2026 06/03/2023, 1 , 06/01/2022, Additional history exists Lipid Panel 06/03/2028 06/03/2023, 05/08, 06/20/2018, Additional history exists DTaP,Tdap,and Td Vaccines (3 - Td or Tdap) 06/17/2032 06/17/2022, 06/29/2011 Zoster Vaccines Completed 10/18/2019, 07/08, 07/09/2015 Pneumococcal Vaccine: 65+ Years Completed 04/14/2022, 11/08/2017 GARDASIL-HPV IMMUNIZATION SERIES Aged Out No longer eligible based on patient's age to complete this topic Hepatitis B Aged Out No longer eligi ble based on patient's age to complete this topic MENINGOCOCCAL (MENACTRA/MENVEO) Aged Out No longer eligible based on patient's age to complete this topic documented as of this encounter Medical Devices Implanted Type Area Cycle Consultant Device Identifier Shelf Expiration Date Model / Serial / Lot Trim It Drill Pin Kit - [id number] Implanted:Qty: 1 on 11/28/2017 by Barbara Koch DPM at OR [facility] Right: Foot [employer] 04/06/2019 [id number] / / documented as of this encounter Visit Diagnoses Diagnosis [employer] Research Other*[id number] documented in this encounter
[2024-02-24] MEDS: LACTATED RINGER'S 1,000 ML IV SCH (05:18)
[2024-02-24 06:15] LABS: Hematocrit (blood only) 36.4 % (37.0-47.0); Hemoglobin 12.5 g/dl (12.0-16.0); Mean Corpuscular Hemoglobin 35.8 pg (25.0-34.0); Mean Corpuscular Hgb Conc 34.3 g/dL (32.0-36.0); Mean Corpuscular Volume 104.3 fL (80.0-100.0); Mean Platelet Volume 10.4 fL (9.4-12.4); Platelet Count 223 K/uL (130-400); RDW Coefficient of Variation 12.6 % (11.5-14.5); RDW Standard Deviation 48.3 fL (36.4-46.3); Red Blood Count 3.49 M/uL (4.20-5.40); White Blood Count 5.97 K/ul (4.8-10.8)
[2024-02-24 06:16] LABS: Albumin Globulin Ratio 1.1 (0.9-2); Albumin Level 3.6 gm/dl (3.4-5.0); BUN Creatinine Ratio 22.3 (10-20); Bilirubin,Total 0.7 mg/dl (0.2-1.0); Creatinine Clr Calc Pharmacy 62.2 ml/min; Est GFR (African American) 71.2 ml/min; Est GFR (Non-African American) 61.5 ml/min; Globulin 3.3 gm/dl (2.5-4.0); Magnesium 1.9 mg/dl (1.7-2.4); Potassium 4.3 mmol/L (3.5-5.1); Total Protein 6.9 gm/dl (6.0-8.3)
--- NOTE | 2024-02-24 07:56 | Anesthesiology Consultation ---
Date of Service February 24, 2024 Assessment & Plan Chart Review Chart Review: Acceptable Risk for Surgery and Patient NOT seen in Pre Admission Testing History Surgery Operation Date: 02/24/24 07:00 Proposed Procedures p Right Ankle Open Reduction Internal Fixation - Aakash Tomas Herron MD Height/Weight Height: 5 ft 5 in Weight: 91.3 kg Allergies Allergy/AdvReac Type Severity Reaction Status Date / Time No Known Allergies Allergy Verified 02/23/24 11:47 Medications Home Medications Medication Instructions Recorded Confirmed Last Taken venlafaxine 150 mg 150 mg PO QAM 07/21/22 02/23/24 07/21/22 capsule,extended release 24 hr tafluprost (PF) 0.0015 % eye drops 1 drp OPL HS 02/23/24 02/23/24 Unknown in a dropperette Active Medications Generic Name Dose Route Start Last Admin Trade Name Freq PRN Reason Stop Dose Admin Folic Acid 1 mg 02/23/24 12:45 02/23/24 13:44 Folic Acid 1 Mg Tab PO 03/24/24 12:44 1 mg QAM SIMRAN Administration Acetaminophen 1,000 mg in 100 mls @ 400 mls/hr 02/23/24 19:00 02/24/24 02:29 Ofirmev IV 02/26/24 18:59 Infused Q8H SIMRAN Infusion Lactated Ringer's 1,000 mls @ 60 mls/hr 02/24/24 06:00 02/24/24 05:18 Lr IV 02/24/24 22:39 60 mls/hr .[id number] SIMRAN Administration Ketorolac Tromethamine 15 mg 02/23/24 12:41 02/23/24 13:46 Ketorolac Tromethamine 15 Mg/Ml Vial IV 02/28/24 12:40 15 mg Q6H PRN Administration Pain Miscellaneous 1 each 02/23/24 16:00 02/24/24 07:33 Tafluprost (Pf) 0.0015 % - Order Awaiting Action N/A 03/24/24 15:59 Not Given QS SIMRAN Morphine Sulfate 2 mg 02/23/24 15:10 02/24/24 07:30 Morphine Sulfate 2 Mg/Ml Carp IV 03/08/24 15:09 2 mg Q6H PRN Administration Pain Thiamine HCl 100 mg 02/23/24 12:45 02/23/24 13:44 Thiamine Hcl 100 Mg Tab PO 03/24/24 12:44 100 mg QAM SIMRAN Administration Past Medical History Medical History HTN (hypertension) Trimalleolar fracture Breast cancer Hyperlipidemia Pt has declined meds. Alcohol dependence Sleep apnea Mild per study 06/2018. Obesity DJD (degenerative joint disease) Osteoarthritis Cancer BREAST CANCER 2000 - LUMPECTOMY, CHEMO AND RADIATION Depression Past Family History Family History Other Coronary heart disease Diabetes Past Surgical History Surgical History History of colonoscopy H/O foot surgery RIGHT FOOT FOR HAMMERTOE Hx of lumpectomy RIGHT BREAST History of gastric bypass 2001 Social History Smoking Status: Never smoker Do You Dip or Chew Tobacco: No Hx Alcohol Use: Yes Alcohol type: wine alcohol intake frequency: 0-2 drinks per day Hx Substance Use: No substance use type: does not use Last Used Substance: Days (ago) Last Used Substance Other:: Last night Physical Exam Vital Signs Last Vital Signs Temp 36.9 C 02/24/24 07:50 Pulse 82 02/24/24 07:50 Resp 16 02/24/24 07:50 BP 138/79 02/24/24 07:50 Pulse Ox 93 02/24/24 07:50 O2 Del Method Room Air 02/24/24 07:50 Testing Laboratory Results 02/24/24 05:32 02/24/24 05:32 PT 10.8 Seconds (9.0-12.0) 02/23/24 09:20 INR 1.0 (0.9-1.1) 02/23/24 09:20
[2024-02-24] MEDS: VENLAFAXINE HCL XR 150 MG CAPXR PO SCH (09:37)
[2024-02-24] MEDS: GABAPENTIN 600 MG TAB PO SCH (09:37)
--- NOTE | 2024-02-24 10:03 | Orthopedic Progress Note ---
Date of Service February 24, 2024 Assessment & Plan (1) Trimalleolar fracture: Plan: Patient will require Open reduction internal fixation right ankle trimalleolar fracture. Placed on the add-on list in the OR today with Dr Herron -Admitted to medicine service. -Consent for in chart -NPO since midnight -Hold anticoagulants -SCDs/TEDS LLE -Vitals and labs stable -Intra-op infection prophylaxis: 2 grams Cefazolin -NWB RLE, ICE, elevate -Pain control per primary Present on Admission?: Yes Admission and Anticipated Discharge Date Admission Date: February 23, 2024 Supervising Physician Co-Signing Physician Notes I, Dr. Herron, saw and examined the patient. I discussed the management with my PA. I reviewed my PAs note and agree with the documented findings and attest to completing the substantive portion of medical decision making and plan of care I developed.Patient is ready for OR today. Subjective This 69-year-old female is seen for follow-up of a right ankle trimalleolar fracture that required reduction and splinting. She understands that she is scheduled to undergo open reduction internal fixation of the fracture later today. Currently she denies significant pain, chest pain, shortness of breath, fever, chills, sweats or numbness or tingling in her right lower extremity. She also denies nausea, vomiting, diarrhea or difficulty voiding. Review of Systems Review of Systems: All systems reviewed & are unremarkable except as noted in Subjective Physical Exam Physical Exam: Right lower extremity: Splint is clean dry and intact and left in place. Patient is able to detect light sensation to touch over the pads of all digits. She is able to move her digits. She is able to extend her knee actively to 0 degrees and flexes beyond 120 degrees. She is able to perform an active straight leg raise test. Her quad strength is 4+ out of 5. She is neurovascularly intact in right lower extremity. Results & Data Vital Signs (Past 12 Hours) Vital Signs Temp Pulse Resp BP Pulse Ox O2 Del Method 02/24/24 07:50 36.9 C 82 16 138/79 93 Room Air Diagnostic Findings Laboratory Results WBC 5.97 K/ul (4.8-10.8) 02/24/24 05:32 RBC 3.49 M/uL (4.20-5.40) L 02/24/24 05:32 Hgb 12.5 g/dl (12.0-16.0) 02/24/24 05:32 Hct 36.4 % (37.0-47.0) L 02/24/24 05:32 MCV 104.3 fL (80.0-100.0) H 02/24/24 05:32 MCH 35.8 pg (25.0-34.0) H 02/24/24 05:32 MCHC 34.3 g/dL (32.0-36.0) 02/24/24 05:32 RDW Std Deviation 48.3 fL (36.4-46.3) H 02/24/24 05:32 RDW Coeff of Maggy 12.6 % (11.5-14.5) 02/24/24 05:32 Plt Count 223 K/uL (130-400) 02/24/24 05:32 MPV 10.4 fL (9.4-12.4) 02/24/24 05:32 Immature Gran % (Auto) 0.3 % 02/23/24 09:20 Neut % (Auto) 77.9 % 02/23/24 09:20 Lymph % (Auto) 9.0 % 02/23/24 09:20 Aiken % (Auto) 10.6 % 02/23/24 09:20 Eos % (Auto) 1.4 % 02/23/24 09:20 Baso % (Auto) 0.8 % 02/23/24 09:20 Neut # (Auto) 6.06 K/uL (1.40-6.50) 02/23/24 09:20 Lymph # (Auto) 0.70 K/uL (1.20-3.40) L 02/23/24 09:20 Aiken # (Auto) 0.82 K/uL (0.11-0.59) H 02/23/24 09:20 Eos # (Auto) 0.11 K/uL (0.00-0.50) 02/23/24 09:20 Baso # (Auto) 0.06 K/uL (0.00-0.20) 02/23/24 09:20 Immature Gran # (Auto) 0.02 K/uL (0.01-0.20) 02/23/24 09:20 PT 10.8 Seconds (9.0-12.0) 02/23/24 09:20 INR 1.0 (0.9-1.1) 02/23/24 09:20 Sodium 132 mmol/L (136-145) L 02/24/24 05:32 Potassium 4.3 mmol/L (3.5-5.1) 02/24/24 05:32 Chloride 99 mmol/L (98-107) 02/24/24 05:32 Carbon Dioxide 26 mmol/L (21-32) 02/24/24 05:32 Anion Gap 7 (3-11) 02/24/24 05:32 BUN 21 mg/dl (6-23) 02/24/24 05:32 Creatinine 0.94 mg/dl (0.6-1.2) 02/24/24 05:32 Est Cr Clr Drug Dosing 62.2 ml/min 02/24/24 05:32 Est GFR ( Amer) 71.2 ml/min 02/24/24 05:32 Est GFR (Non-Af Amer) 61.5 ml/min 02/24/24 05:32 BUN/Creatinine Ratio 22.3 (10-20) H 02/24/24 05:32 Glucose 97 mg/dl (70-99(Fasting)) 02/24/24 05:32 Calcium 9.0 mg/dl (8.6-10.3) 02/24/24 05:32 Magnesium 1.9 mg/dl (1.7-2.4) 02/24/24 05:32 Total Bilirubin 0.7 mg/dl (0.2-1.0) 02/24/24 05:32 Direct Bilirubin 0.1 mg/dl (0-0.2) 02/23/24 09:20 AST 28 U/L (13-39) 02/24/24 05:32 ALT 14 U/L (7-52) 02/24/24 05:32 Alkaline Phosphatase 62 U/L (34-104) 02/24/24 05:32 Total Protein 6.9 gm/dl (6.0-8.3) 02/24/24 05:32 Albumin 3.6 gm/dl (3.4-5.0) 02/24/24 05:32 Globulin 3.3 gm/dl (2.5-4.0) 04/19/24 05:32 Albumin/Globulin Ratio 1.1 (0.9-2) 02/24/24 05:32 Vitamin B12 113 pg/ml (180-914) L 02/23/24 09:20 Impressions Ankle X-Ray 02/23/24 11:03 XR ankle RT min 3V routine CLINICAL HISTORY: post reduction COMPARISON: Right ankle radiographs performed earlier today. FINDINGS: Overlying cast is noted. Alignment of the distal right fibular and tibial fractures has improved post reduction. Ankle mortise widening persists however has improved. Fine bony detail is diminished given overlying cast. Postoperative findings within the second and third metatarsals are incidentally noted, IMPRESSION: Improved alignment of the right ankle trimalleolar fracture/dislocation postreduction. ACT 112: Negative or not required by law. Electronically signed by: Rickie Weiner M.D. 02/23/2024 11:33 AM
[2024-02-24] MEDS ORDERED: MIDAZOLAM HCL 1 MG/ML 2ML VIAL ONE (12:33)
[2024-02-24] MEDS ORDERED: fentaNYL citrate PF 100 MCG/2 ML VIAL ONE (12:33)
[2024-02-24] MEDS ORDERED: BUPIVACAINE 0.25% PF 30 ML VIAL ONE (12:41)
[2024-02-24] MEDS ORDERED: DEXAMETHASONE SOD INJ 4 MG/ML VIAL ONE ×2 (12:41→13:11)
[2024-02-24] MEDS ORDERED: EPINEPHrine INJ 1 MG/ML AMP ONE (12:42)
[2024-02-24] MEDS ORDERED: fentaNYL citrate PF 100 MCG/2 ML VIAL IV PRN ×2 (12:44→13:02)
[2024-02-24] MEDS ORDERED: PROMETHAZINE HCL 6.25 MG in SODIUM CHLORIDE 0.9% 50 ML IV PRN ×2 (12:44→13:02)
[2024-02-24] MEDS ORDERED: ATROPINE SULFATE 0.1 MG/ML 10ML SYR IV PRN ×2 (12:44→13:02)
[2024-02-24] MEDS ORDERED: ePHEDrine sulfate 50 MG/ML AMP IV PRN ×2 (12:44→13:02)
[2024-02-24] MEDS ORDERED: ONDANSETRON INJ 2 MG/ML 2 ML VIAL IV PRN ×2 (12:44→13:02)
[2024-02-24] MEDS: ceFAZolin 2000MG 2,000 MG/15 ML SYR IV SCH (13:00)
[2024-02-24] MEDS ORDERED: ONDANSETRON INJ 2 MG/ML 2 ML VIAL ONE ×2 (13:11→13:12)
[2024-02-24] MEDS ORDERED: PROPOFOL IV EMULSION 10 MG/ML 20 ML VIAL IV ONE (13:11)
[2024-02-24] MEDS ORDERED: LIDOCAINE 2% 2 ML VIAL/AMP(20MG/ML) INFIL ONE (13:11)
--- NOTE | 2024-02-24 13:43 | Hospitalist Progress Note ---
Date of Service February 24, 2024 Assessment & Plan (1) Trimalleolar fracture of right ankle: (2) HTN (hypertension): Plan 69 year old female who presented to the ED after her right foot slipped in the bathroom and she sustained trimalleolar fracture right ankle. Trimalleolar fracture right ankle- Xray reviewed. Seen by ortho- plan for OR today. NPO for the same. Anticoag on hold for the same. Continue pain management, bowel regimen. PT OT eval and chemoppx after the surgery when okay per surgical team Alcohol use: alc level 202. drinks 1 bottle wine daily. COntinue AWSS protocol with gabapentin taper. Continue thiamine and folate. Monitor for withdrawal. HTN: Stopped taking lisinopril due to cramps. BP stable off of any meds. Monitor. Depression: stable, continue effexor B12 deficiency with macrocytosis-B12 level 113. Will start on im supplemenation in house and po at discharge. Hyponatremia- sodium 132. continue NSS. Recheck in am. DVT ppx- resume chemoppx from tomorrow Dispo- OR today. Will need PT eval and afterwards Time spent- approx 35 mins Admission and Anticipated Discharge Date Admission Date: February 23, 2024 Subjective Patient was seen and examined at bedside. She feels better. pain is controlled. Awaiting the surgery. NPO for the same and is hungry. No fever chills, CP, SOB, N/V. Review of Systems Review of Systems: All systems reviewed & are unremarkable except as noted in Subjective Physical Exam Physical Exam: General: Sitting comfortably in bed, not in distress, on room air HEENT: EOMI, JESSENIA, MMM Chest: Clear breath sounds bilaterally, no wheezes or crackles CVS: Regular rate and rhythm, normal heart sounds, no murmur Abdomen: Soft, non tender, not distended, normal bowel sounds Neuro: Awake, alert, oriented, conversing well, non focal Extremities: RLE in splint Results & Data Results & Data Vital Signs (Past 12 Hours) Vital Signs Temp Pulse Resp BP Pulse Ox O2 Del Method 02/24/24 12:34 37.0 C 79 18 139/82 98 Room Air 02/24/24 07:50 36.9 C 82 16 138/79 93 Room Air (1) Trimalleolar fracture of right ankle Encounter type: initial encounter Fracture type: closed Qualified Code(s): S82.851A - Displaced trimalleolar fracture of right lower leg, initial encounter for closed fracture
[2024-02-24] MEDS ORDERED: DexMEDEtomidine HCL IV 100 MCG/ML VIAL IV ONE (13:52)
[2024-02-24] MEDS: BUPIVACAINE 0.5 % 5 MG/1 ML MPF 30ML VIAL ONE (15:15)
[2024-02-24] MEDS: LIDOCAINE 1% LOCAL 20 ML VIAL ONE (15:15)
--- NOTE | 2024-02-24 15:34 | Post Operative Brief Note ---
Immediate Post Op Note v1 Date of Surgery February 24, 2024 Pre & Post Diagnosis Operation Date: 02/24/24 07:00 Pre-Op Diagnosis: Trimalleolar ankle fracture Post-Op Diagnosis: Trimalleolar ankle fracture I identified the patient and participated in the time-out.: Yes Procedure Operation Date: 02/24/24 07:00 Actual Procedures p Open Reduction Internal Fixation Right Ankle bimalleolar, Closed Treatment posterior malleolus (Right) - Aakash Herron MD Surgeon Aakash Herron MD Tele Grout Sewer Line Repairer A MD Paul & M JESSICA Abreu Estimated Blood Loss 25 Findings Consistent with Post-Op Diagnosis Fluids 1200 cc Anesthesia Type General Regional Complications none
--- NOTE | 2024-02-24 15:38 | Operative Report ---
Post Operative Report Pre & Post Diagnosis Operation Date: 02/24/24 07:00 Pre-Op Diagnosis: Trimalleolar ankle fracture Post-Op Diagnosis: Trimalleolar ankle fracture I identified the patient and participated in the time-out.: Yes Procedure Operation Date: 02/24/24 07:00 Actual Procedures p Open Reduction Internal Fixation Right Ankle bimalleolar, Closed Treatment posterior malleolar fracture (Right) - Aakash Herron MD Surgeon Aakash Herron MD Vp Account Director A MD Paul [employer] Bee Abreu PA-C Estimated Blood Loss 25 Findings See Below Comminuted trimalleolar ankle fracture, displaced. Periosteum within the medial mal fracture site. Fracture blister medially. Grade 3 changes noted on the visible Talar head. The syndesmosis was stable after ORIF Bi-mal. Posterior mal was well reduced following indirect reduction of the bi-mal and was less than 5% of the articular surface. Fluids 1200 cc Specimens n/a Anesthesia Type General Regional Complications none Description of Procedure IMPLANTS: 1) 6 hole, Distal Fibula locking plate, Ti ([employer]). 2) 3.5 mm locking screws (12 and 14 mm). 3) 3.5 mm cortical screw (14 mm) 4) 3.0 mm locking screws (10 mm, 14, 16 x 2) 5) 2.4 mm cortical screw (28 mm) 6) 4.0 mm x 42 mm short thread cannulated screws x2 (medial Mal). PROCEDURE: The patient was taken to the Operating Room and placed in the supine position on the operating table. After general anesthetic was administered a multidisciplinary time-out was performed identifying the patient my initials on the right limb as the correct and operative limb. Prior to the incision being made, 2 grams of intravenous Ancef were given. The right leg was prepped and draped in the standard fashion. The distal fibula was marked as well as the planned incision centered about the distal fibula 10 cm in length. The planned incision laterally and medially were injected with a 50:50 mixture of 1% lidocaine and 0.5 % Marcaine with epi for a total of 15 cc. The planned incision was made and carried down to the fibula. The fracture site was easily identified as there was a tear in the fascia. The Superficial Peroneal nerve was identified approximately 7cm proximal to the tip of fibula and was dissected and protected throughout the case. The fracture site was debrided with copious irrigation, dental pick, and rongeur, removing any soft tissue and hematoma. Using a pointed reduction clamp the main 2 fracture fragments were reduced. A second pointed reduction clamp was used to reduce the distal anterior fragment to the main distal fragment. K-wires were used to temporarily secure the fracture. The 6-hole Distal Fibula locking plate was contoured to fit the distal fibula and held in place by be-be tacks. A proximal non-locking screw was placed through the plate followed by a locking screw. A distal cortical screw was placed and later replaced with a locking screw after 3 locking screw were placed securing the main fragments, leaving the central 2 holes for placement of syndesmotic fixation if necessary. A single lag screw was placed in the standard fashion to secure the distal anterior fragment as it was not captured by the plate. The final proximal locking screw was placed. The clamps and k-wires were able to be removed. Our attention was drawn to the medial malleolus. A 5 cm curved incision was made with a scalpel to expose the joint, fracture fragments, and to avoid the fracture blister. The fracture was easily identified. The periosteum was removed from the fracture site. The fracture site was debrided with copious irrigation, dental pick, and rongeur, removing any soft tissue and hematoma. There was noted comminution at the fracture edge. Using a pointed reduction clamp to reduce the medial malleolus 2 parallel K-wires were placed. Two 4.0 cannulated screws were placed in the standard fashion by drilling the outer cortex and counter sinking prior to placing the screws. Fluoroscopy was used throughout the case to ensure proper reduction and placement of hardware. Testing via external rotation testing and cotton testing showed the syndesmosis to be reduced and stable. The wounds were copiously irrigated. Final x-rays were obtained. The fascia over the plate was closed with 2-0 Vicryl and the subcutaneous layer were closed with 3-0 Vicryl. The skin was closed with [place]. The sponge and needle counts were correct. The wounds were covered with Xeroform, 4x4's, ABD's, Steril cast padding, and an AO splint was placed. The patient was awakened and taken to the recovery room in stable condition. Post-op Instructions: The patient will be re-admitted to the hospitalist service and remain NWB while in the splint. Patient will see PT/OT tomorrow. Once the patient is switched to a cam boot, they will be, toe-touch WB. Pain medicine to be taken as needed. The patient will follow up in Dr. Roberts office in 10-14 days. I attest to the content of the Intraoperative Record and any orders documented therein. Any exceptions are noted below.
--- NOTE | 2024-02-24 15:54 | Fluoroscopy Report ---
FL ankle RT min 3V RTN CLINICAL HISTORY: RIGHT ANKLE ORIF COMPARISON STUDY: Right ankle radiographs February 23, 2024. FLUOROSCOPY TIME: 34 seconds. FLUOROSCOPIC IMAGES: 3 FINDINGS: Fluoroscopy was provided during open reduction and internal fixation of the right ankle fra cture/dislocation deformity. 2 cannulated screws fixate the medial medial malleolar fracture. Plate a nd screw fixation of the right fibular fracture is noted. Fracture alignment appears near anatomic. A nkle mortise appears aligned. IMPRESSION: Fluoroscopy provided during open reduction and internal fixation of the right ankle. ACT 112: Negative or not required by law. Electronically signed by: Rickie Weiner M.D. 02/24/2024 3:53 PM
--- NOTE | 2024-02-24 16:00 | Operative Report ---
Post Operative Report Pre & Post Diagnosis Operation Date: 02/24/24 07:00 Pre-Op Diagnosis: Trimalleolar ankle fracture Post-Op Diagnosis: Trimalleolar ankle fracture I identified the patient and participated in the time-out.: Yes Procedure Operation Date: 02/24/24 07:00 Actual Procedures p Open Reduction Internal Fixation Right Ankle bimalleolor, Closed Treatment posterior malleous(Right) - Aakash Tomas Herron MD Surgeon Dr Herron Certified Meeting Professional A MD Paul & M JESSICA Abreu Estimated Blood Loss 25 Findings Consistent with Post-Op Diagnosis Specimens none Description of Procedure Pt was taken to operating room and properly positioned for procedure. Refer to anesthesia's note for anesthesia used. Pt was given pre-op antibiotics. Prepped and draped in sterile fashion. I was present during the entire case and assisted with positioning, instrumentation, closure and dressings. Please see surgeon's op report for further detail. Pt was awake and transferred to PACU in stable condition I attest to the content of the Intraoperative Record and any orders documented therein. Any exceptions are noted below.
--- NOTE | 2024-02-24 16:12 | Operative Report ---
Post Operative Report Pre & Post Diagnosis Operation Date: 02/24/24 07:00 Pre-Op Diagnosis: Trimalleolar ankle fracture Post-Op Diagnosis: Trimalleolar ankle fracture I identified the patient and participated in the time-out.: Yes Procedure Operation Date: 02/24/24 07:00 Actual Procedures p Open Reduction Internal Fixation Right Ankle bimalleolor, Closed Treatment posterior malleous(Right) - Aakash Herron MD Surgeon Aakash Herron MD Bottom Precipitator Operator A MD Paul & M JESSICA Abreu Estimated Blood Loss 25 Findings Consistent with Post-Op Diagnosis Same as postoperative diagnosis. Specimens None Description of Procedure Please see detailed operative note. I attest to the content of the Intraoperative Record and any orders documented therein. Any exceptions are noted below.
[2024-02-24] MEDS ORDERED: LORazepam 3 MG in SYRINGE 1.5 ML IV PRN (16:44)
[2024-02-24] MEDS ORDERED: LORazepam 1 MG in SYRINGE 0.5 ML IV PRN (16:44)
[2024-02-24] MEDS ORDERED: LORazepam 2 MG in SYRINGE 1 ML IV PRN (16:44)
[2024-02-24] MEDS ORDERED: Ativan IV Alcohol Withdrawal--Active Protocol IV PRN (16:44)
[2024-02-24] MEDS: SODIUM CHLORIDE 0.9% 1,000 ML IV SCH (16:55)
[2024-02-24] MEDS: CYANOCOBALAMIN 1000 MCG/ML VIAL IM SCH (16:56)
--- NOTE | 2024-02-24 17:14 | Anesthesiology Progress Note ---
Date of Service February 24, 2024 Anesthesia Post Procedure Vital Signs Vital Signs: Temp Pulse Pulse Resp BP BP Pulse Ox 02/24/24 16:50 97.5 F L 88 16 144/80 H 93 02/24/24 16:35 98.2 F 88 18 144/79 H 95 02/24/24 16:25 88 17 144/74 H 95 02/24/24 16:15 86 17 147/79 H 95 02/24/24 16:05 92 H 19 148/79 H 95 02/24/24 15:58 98.4 F 92 H 19 139/79 97 02/24/24 12:34 98.6 F 79 18 139/82 98 02/24/24 07:50 98.4 F 82 16 138/79 93 02/23/24 21:00 02/23/24 20:07 98.1 F 80 16 148/75 H 92 O2 Del Method O2 Flow Rate 02/24/24 16:50 Room Air 02/24/24 16:35 Room Air 02/24/24 16:25 Room Air 02/24/24 16:15 Oxymask 5 02/24/24 16:05 Oxymask 5 02/24/24 15:58 Oxymask 5 02/24/24 12:34 Room Air 02/24/24 07:50 Room Air 02/23/24 21:00 Room Air 02/23/24 20:07 Room Air Pain Intensity Right Ankle: Pain Intensity: 7 Transfer of Care Handoff Completed per policy Notes Mental Status: alert / awake / arousable and participated in evaluation Patient Amnestic to Procedure: Yes Nausea / Vomiting: adequately controlled Pain: adequately controlled Airway Patency, RR, SpO2: stable & adequate BP & HR: stable & adequate Hydration State: stable & adequate Anesthetic Complications: no major complications apparent and Pt Satisfied with anesthetic care
[2024-02-25 06:58] LABS: Hematocrit (blood only) 34.6 % (37.0-47.0); Hemoglobin 11.6 g/dl (12.0-16.0); Mean Corpuscular Hemoglobin 35.8 pg (25.0-34.0); Mean Corpuscular Hgb Conc 33.5 g/dL (32.0-36.0); Mean Corpuscular Volume 106.8 fL (80.0-100.0); Mean Platelet Volume 10.9 fL (9.4-12.4); Platelet Count 194 K/uL (130-400); RDW Coefficient of Variation 12.2 % (11.5-14.5); Red Blood Count 3.24 M/uL (4.20-5.40); White Blood Count 6.58 K/ul (4.8-10.8)
[2024-02-25 07:12] LABS: BUN Creatinine Ratio 24.4 (10-20); Calcium 8.4 mg/dl (8.6-10.3); Creatinine Clr Calc Pharmacy 75.3 ml/min; Est GFR (African American) 89.3 ml/min; Magnesium 1.9 mg/dl (1.7-2.4); Phosphorus 2.6 mg/dl (2.5-4.9); Potassium 4.4 mmol/L (3.5-5.1)
[2024-02-25] MEDS: ENOXAPARIN INJ 40 MG/0.4 ML SYR SQ SCH (08:04)
--- NOTE | 2024-02-25 09:30 | Orthopedic Progress Note ---
Date of Service February 25, 2024 Assessment & Plan (1) Trimalleolar fracture: Plan: POD #1 s/p ORIF right bi-mal and closed treatment posterior mal, doing as well as expected, block still working. Resume diet. NWB RLE, with walker. OOB to chair. Continue pain control. DVT prophylaxis: TEDs 3 weeks, foot pumps while in hospital, ASA 81 mg BID for 4 weeks. PT/OT. D/C planning, ok d/c home if remains medically stable, passes PT, and pain controlled from ortho stand point Follow up in Dr. Herron's office this week, call [phone] for appointment. Continue care per primary service. Admission and Anticipated Discharge Date Admission Date: February 23, 2024 Subjective No pain, block starting to wear off. Patient notes she was OOB with nurse last evening and is much improved since injury. Physical Exam Physical Exam: RLE: Splint clean, dry, intact. She has sensation intact distally to light touch to 4th & 5th toes. Only able to slightly flex toes. BCR < 2 sec. Calf is soft and non-tender. Results & Data Vital Signs (Past 12 Hours) Vital Signs Temp Pulse Resp BP Pulse Ox O2 Del Method 02/25/24 04:50 36.7 C 85 16 142/67 H 95 Room Air 02/25/24 00:40 36.5 C 85 18 149/77 H 96 Room Air Laboratory Results Laboratory Results WBC 6.58 K/ul (4.8-10.8) 02/25/24 05:37 RBC 3.24 M/uL (4.20-5.40) L 02/25/24 05:37 Hgb 11.6 g/dl (12.0-16.0) L 02/25/24 05:37 Hct 34.6 % (37.0-47.0) L 02/25/24 05:37 MCV 106.8 fL (80.0-100.0) H 02/25/24 05:37 MCH 35.8 pg (25.0-34.0) H 02/25/24 05:37 MCHC 33.5 g/dL (32.0-36.0) 02/25/24 05:37 RDW Std Deviation 48.0 fL (36.4-46.3) H 02/25/24 05:37 RDW Coeff of Maggy 12.2 % (11.5-14.5) 02/25/24 05:37 Plt Count 194 K/uL (130-400) 02/25/24 05:37 MPV 10.9 fL (9.4-12.4) 02/25/24 05:37 Immature Gran % (Auto) 0.3 % 02/23/24 09:20 Neut % (Auto) 77.9 % 02/23/24 09:20 Lymph % (Auto) 9.0 % 02/23/24 09:20 Sibley % (Auto) 10.6 % 02/23/24 09:20 Eos % (Auto) 1.4 % 02/23/24 09:20 Baso % (Auto) 0.8 % 02/23/24 09:20 Neut # (Auto) 6.06 K/uL (1.40-6.50) 02/23/24 09:20 Lymph # (Auto) 0.70 K/uL (1.20-3.40) L 02/23/24 09:20 Sibley # (Auto) 0.82 K/uL (0.11-0.59) H 02/23/24 09:20 Eos # (Auto) 0.11 K/uL (0.00-0.50) 02/23/24 09:20 Baso # (Auto) 0.06 K/uL (0.00-0.20) 02/23/24 09:20 Immature Gran # (Auto) 0.02 K/uL (0.01-0.20) 02/23/24 09:20 PT 10.8 Seconds (9.0-12.0) 02/23/24 09:20 INR 1.0 (0.9-1.1) 02/23/24 09:20 Sodium 133 mmol/L (136-145) L 02/25/24 05:37 Potassium 4.4 mmol/L (3.5-5.1) 02/25/24 05:37 Chloride 100 mmol/L (98-107) 02/25/24 05:37 Carbon Dioxide 26 mmol/L (21-32) 02/25/24 05:37 Anion Gap 7 (3-11) 02/25/24 05:37 BUN 19 mg/dl (6-23) 02/25/24 05:37 Creatinine 0.78 mg/dl (0.6-1.2) 02/25/24 05:37 Est Cr Clr Drug Dosing 75.3 ml/min 02/25/24 05:37 Est GFR ( Amer) 89.3 ml/min 02/25/24 05:37 Est GFR (Non-Af Amer) 77.0 ml/min 02/25/24 05:37 BUN/Creatinine Ratio 24.4 (10-20) H 02/25/24 05:37 Glucose 165 mg/dl (70-99(Fasting)) H 02/25/24 05:37 Calcium 8.4 mg/dl (8.6-10.3) L 02/25/24 05:37 Phosphorus 2.6 mg/dl (2.5-4.9) 02/25/24 05:37 Magnesium 1.9 mg/dl (1.7-2.4) 02/25/24 05:37 Total Bilirubin 0.7 mg/dl (0.2-1.0) 02/24/24 05:32 Direct Bilirubin 0.1 mg/dl (0-0.2) 02/23/24 09:20 AST 28 U/L (13-39) 02/24/24 05:32 ALT 14 U/L (7-52) 02/24/24 05:32 Alkaline Phosphatase 62 U/L (34-104) 02/24/24 05:32 Total Protein 6.9 gm/dl (6.0-8.3) 02/24/24 05:32 Albumin 3.6 gm/dl (3.4-5.0) 02/24/24 05:32 Globulin 3.3 gm/dl (2.5-4.0) 02/24/24 05:32 Albumin/Globulin Ratio 1.1 (0.9-2) 02/24/24 05:32 Vitamin B12 113 pg/ml (180-914) L 02/23/24 09:20 Impressions Ankle X-Ray 02/24/24 07:00 FL ankle RT min 3V RTN CLINICAL HISTORY: RIGHT ANKLE ORIF COMPARISON STUDY: Right ankle radiographs February 23, 2024. FLUOROSCOPY TIME: 34 seconds. FLUOROSCOPIC IMAGES: 3 FINDINGS: Fluoroscopy was provided during open reduction and internal fixation of the right ankle fracture/dislocation deformity. 2 cannulated screws fixate the medial medial malleolar fracture. Plate and screw fixation of the right fibular fracture is noted. Fracture alignment appears near anatomic. Ankle mortise appears aligned. IMPRESSION: Fluoroscopy provided during open reduction and internal fixation of the right ankle. ACT 112: Negative or not required by law. Electronically signed by: Rickie Weiner M.D. 02/24/2024 3:53 PM
--- NOTE | 2024-02-25 11:09 | Hospitalist Progress Note ---
Date of Service February 25, 2024 Assessment & Plan (1) Trimalleolar fracture of right ankle: (2) HTN (hypertension): (3) Alcohol use: (4) B12 deficiency: (5) Macrocytosis: Plan 69 year old female who presented to the ED after her right foot slipped in the bathroom and she sustained trimalleolar fracture right ankle. Trimalleolar fracture right ankle s/p Open Reduction Internal Fixation Right Ankle bimalleolor, Closed Treatment posterior malleous(Right) by Dr Herron 02/23. Doing well post op. PT OT eval pending. Continue pain management, bowel regimen. Alcohol use: Alcohol level 202. drinks 1 bottle wine daily. Continue AWSS protocol with gabapentin taper. Continue thiamine and folate. Monitor for withdrawal. HTN: Stopped taking lisinopril due to cramps. BP stable off of any meds. Monitor. Depression: mood stable, continue Effexor B12 deficiency with macrocytosis-B12 level 113. Continue im supplemenation in house and po at discharge. Hyponatremia- sodium 133. S/p IVF. Recheck in am. DVT ppx- sc lovenox. Will plan for eliquis 2.5 mg bid at discharge. Dispo- Pending PT OT eval for disposition Updated at bedside Time spent- approx 35 mins Admission and Anticipated Discharge Date Admission Date: February 23, 2024 Subjective Patient was seen and examined at bedside. Block is still working and denies any pain. No withdrawal symptoms. Voiding without issues. Passing gas, no BM yet. Tolerating diet well. Not seen by PT OT yet. Ortho recs noted. at bedside. Review of Systems Review of Systems: All systems reviewed & are unremarkable except as noted in Subjective Physical Exam Physical Exam: General: Sitting comfortably in bed, not in distress, on room air HEENT: EOMI, JESSENIA, MMM Chest: Clear breath sounds bilaterally, no wheezes or crackles CVS: Regular rate and rhythm, normal heart sounds, no murmur Abdomen: Soft, non tender, not distended, normal bowel sounds Neuro: Awake, alert, oriented, conversing well, non focal Extremities: RLE in splint. Able to wiggle toes Results & Data Results & Data Vital Signs (Past 12 Hours) Vital Signs Temp Pulse Resp BP Pulse Ox O2 Del Method 02/25/24 04:50 36.7 C 85 16 142/67 H 95 Room Air 02/25/24 00:40 36.5 C 85 18 149/77 H 96 Room Air Laboratory Results Short CBC 02/25/24 Range/Units 05:37 WBC 6.58 (4.8-10.8) K/ul Hgb 11.6 L (12.0-16.0) g/dl Hct 34.6 L (37.0-47.0) % Plt Count 194 (130-400) K/uL BMP 02/25/24 05:37 Sodium 133 L Potassium 4.4 Chloride 100 Carbon Dioxide 26 BUN 19 Creatinine 0.78 Glucose 165 H Calcium 8.4 L (1) Trimalleolar fracture of right ankle Encounter type: initial encounter Fracture type: closed Qualified Code(s): S82.851A - Displaced trimalleolar fracture of right lower leg, initial encounter for closed fracture
[2024-02-25] MEDS: GABAPENTIN 600 MG TAB PO SCH (11:44)
--- NOTE | 2024-02-25 18:36 | Orthopedic Progress Note ---
Date of Service February 25, 2024 Assessment & Plan (1) Trimalleolar fracture: Plan: POD #1 s/p ORIF right bi-mal and closed treatment posterior mal, doing as well as expected, block still working. Resume diet. NWB RLE, with walker. MAY USE KNEE SCOOTER OOB to chair. Continue pain control. DVT prophylaxis: TEDs 3 weeks, foot pumps while in hospital, Lovenox while in hospital, may switch to ASA 81 mg BID for 4 weeks. PT/OT. Did not pass PT today recommend IP rehab. Re-eval tomorrow with knee scooter. D/C planning, ok d/c home if remains medically stable, passes PT, and pain controlled from ortho stand point Follow up in Dr. Herron's office this week, call [phone] for appointment. Continue care per primary service. Admission and Anticipated Discharge Date Admission Date: February 23, 2024 Subjective No pain. Physical Exam Physical Exam: RLE: Splint clean, dry, intact. Sensation intact distally to light touch. Wiggling all toes up and down. BCR < 2 sec. Calf is soft and non-tender. Results & Data Vital Signs (Past 12 Hours) Vital Signs Temp Pulse Resp BP Pulse Ox O2 Del Method 02/25/24 14:50 37 C 78 16 123/71 94 Room Air 02/25/24 11:55 36.2 C L 80 16 130/72 99 Room Air
[2024-02-26 06:49] LABS: Hematocrit (blood only) 35.1 % (37.0-47.0); Hemoglobin 11.5 g/dl (12.0-16.0); Mean Corpuscular Hemoglobin 35.5 pg (25.0-34.0); Mean Corpuscular Hgb Conc 32.8 g/dL (32.0-36.0); Mean Corpuscular Volume 108.3 fL (80.0-100.0); Mean Platelet Volume 10.8 fL (9.4-12.4); Platelet Count 182 K/uL (130-400); RDW Coefficient of Variation 12.7 % (11.5-14.5); RDW Standard Deviation 50.2 fL (36.4-46.3); Red Blood Count 3.24 M/uL (4.20-5.40); White Blood Count 5.59 K/ul (4.8-10.8)
[2024-02-26 07:00] LABS: BUN Creatinine Ratio 21.7 (10-20); Calcium 8.7 mg/dl (8.6-10.3); Est GFR (Non-African American) 92.4 ml/min; Potassium 4.3 mmol/L (3.5-5.1)
--- NOTE | 2024-02-26 09:14 | Orthopedic Progress Note ---
Date of Service February 26, 2024 Assessment & Plan (1) Trimalleolar fracture: Plan: POD #2 s/p ORIF right bi-mal and closed treatment posterior mal, doing as well as expected, block still working. Resume diet. NWB RLE, with walker. MAY USE KNEE SCOOTER OOB to chair. Continue pain control. DVT prophylaxis: TEDs 3 weeks, foot pumps while in hospital, Lovenox while in hospital, may switch to ASA 81 mg BID for 4 weeks. PT/OT. Did not pass PT 02/25/24 recommend IP rehab. Re-eval today with knee scooter. D/C planning, ok d/c home if remains medically stable, passes PT, and pain controlled from ortho stand point Follow up in Dr. Herron's office this week, call [phone] for appointment. Continue care per primary service. Admission and Anticipated Discharge Date Admission Date: February 23, 2024 Subjective No pain. Physical Exam Physical Exam: RLE: Splint clean, dry, intact. Sensation intact distally to light touch. Wiggling all toes up and down. BCR < 2 sec. Calf is soft and non-tender. Results & Data Vital Signs (Past 12 Hours) Vital Signs Temp Pulse Resp BP Pulse Ox O2 Del Method 02/26/24 07:20 36.2 C L 78 16 104/60 97 Room Air 02/25/24 22:34 36.6 C 95 H 20 122/65 96 Room Air
[2024-02-26] MEDS: DOCUSATE SODIUM/SENNA 50/8.6MG TAB PO SCH (11:15)
[2024-02-26] MEDS: POLYETHYLENE (MIRALAX) 17 GM PACK PO SCH (11:15)
--- NOTE | 2024-02-26 15:39 | Discharge Summary ---
Date of Service February 26, 2024 Admission HPI Per Admitting Provider Ms. Dickinson is a 69 year old female that presents to the ED after her foot slipped off of the foot stool in her bathroom while she was clipping her toenails. She was in her bathroom clipping her toenails and her foot slipped off the stool. She does not use any assistance devices at baseline. Pt has a history of breast cancer and HTN, and depression. She has not been taking her Lisinopril as she states that she had 'cramps'. Currently normotensive in the ED. Ankle xray in ED revealed an acute oblique displaced distal right fibular fracture. Fracture is displaced 2.4 cm. Displaced fracture of the medial malleolus is noted. This fracture is displaced 1.8 cm. There is also a suspected fracture of the posterior distal right tibia. Tibiotalar joint is disrupted. Ankle soft tissue swelling is present. Talar dome is intact. No calcaneal fracture. Small plantar calcaneal spur Ankle was reduced and placed in a cast; Improved alignment of the right ankle trimalleolar fracture/dislocation postreduction on repeat ankle x-ray. She takes Effexor 150 mg QAM. She takes her Albuterol PRN but has not used it in a while. Pt denies JOYNER, dizziness, lightheadedness, chest pain, palpitations, abdominal p ain or tenderness, urine or bowel changes, visual or auditory changes, other recent falls or trauma. Denies tobacco and recreational drug use. Reportedly drinks 1 bottle of wine daily. Per patient and no known tremors or withdrawal effects from alcohol in the past. Discussed with Dr. Herron for surgical repair hopefully tomorrow 02/23 pending OR scheduling. Ortho will place their own preop antibiotics orders. Patient will be admitted to the ED for further evaluation and management of her trimaleolar fracture. N.p.o. after midnight, formal orthopedics consultation placed, pain control with schedule Tylenol and Ketorolac. ECG for preop clearance. Due to daily alcohol use, will add AWSS scale with gabapentin taper and p.o. thiamine and folic acid. Admission Exam Per Admitting Provider GENERAL APPEARANCE: AxOx4, generally well-appearing F, no acute distress. HEENT: NC, AT. MMM. EOMI, clear conjunctiva, oropharynx clear. NECK: Supple without lymphadenopathy. No stiffness or restricted ROM. HEART: Normal rate and regular rhythm, normal S1/S1, no m/r/g LUNGS: CTAB, moving air well. No crackles or wheezes are heard. ABDOMEN: Soft, nontender, nondistended with good bowel sounds heard. EXTREMITIES: Without cyanosis, clubbing or edema. right LE in cast, sensation and movement intact NEUROLOGICAL: Grossly nonfocal. Alert and oriented, moving all 4 extremities. CN not formally tested but appear grossly intact. Skin: Warm and dry without any rash. Principal Diagnosis Trimalleolar fracture right ankle s/p ORIF, Alcohol abuse, Vit B12 deficiency Discharge Exam General: Sitting comfortably in bed, not in distress, on room air HEENT: EOMI, JESSENIA, MMM Chest: Clear breath sounds bilaterally, no wheezes or crackles CVS: Regular rate and rhythm, normal heart sounds, no murmur Abdomen: Soft, non tender, not distended, normal bowel sounds Neuro: Awake, alert, oriented, conversing well, non focal Extremities: RLE in splint. Able to wiggle toes Discharge Data Allergies Allergy/AdvReac Type Severity Reaction Status Date / Time No Known Allergies Allergy Verified 02/23/24 11:47 Consultations 02/23/24 12:23 ED Decision to Admit Stat 02/23/24 12:42 Consult Orthopedic Surgery Routine Procedures Performed Operation Date: 02/24/24 07:00 Actual Procedures p Open Reduction Internal Fixation Right Ankle bimalleolor, Closed Treatment posterior malleous(Right) - Aakash Tomas Herron MD Ordered Studies 02/24/24 07:00 FL ankle RT min 3V RTN Routine 02/24/24 12:38 US - OR guided needle placemen Routine Hospital Course (1) Trimalleolar fracture of right ankle: (2) HTN (hypertension): (3) Alcohol use: (4) B12 deficiency: (5) Macrocytosis: Plan 69 year old female who presented to the ED after her right foot slipped in the bathroom and she sustained trimalleolar fracture right ankle. She was seen by orthopedics and underwent ORIF right ankle by Dr Herron 02/23. Post op course unremarkable. Seen by PT OT and orthopedics and cleared for discharge home with home health services. RW was provided. Script for knee scooter was provided. PDMP reviewed, discharging on 12 pills of oxy for pain control along with bowel regimen. Also on aspirin 81 bid for DVT ppx per ortho. She was on gabapentin taper per alcohol withdrawal protocol and she did not have any withdrawal symptoms. She has 1 more dose of gabapentin to take tonight per taper protocol and is being discharged on the same along with thiamine, folate and Vit B12 (as deficient). She is comfortable and stable for discharge home. was at bedside. Trimalleolar fracture right ankle s/p Open Reduction Internal Fixation Right Ankle bimalleolor, Closed Treatment posterior malleous(Right) by Dr Herron 02/23. Uncomplicated post op course. Cleared by PT OT and orthopedics for discharge home with home health, RW and script for knee scooter. Discharge instructions per ortho and OP follow up in office. Oxy prn for pain, continue bowel regimen. Alcohol use: Alcohol level 202. drinks 1 bottle wine daily. S/p gabapentin taper. Discharging on remaining 1 more dose of gabapentin for tonight. Continue thiamine and folate. No withdrawal symptoms here. HTN: Stopped taking lisinopril due to cramps. BP stable off of any meds. F/u with PCP Depression: mood stable, continue Effexor B12 deficiency with macrocytosis-B12 level 113. S/p 3 doses of im supplementation in house and continue po B12 supplement at discharge. Hyponatremia- resolved. Total Time Total Time Spent Total Time Spent (In Minutes): 38 Discharge Plan Discharge Items Patient Disposition: Home - Self-Care Reason For Visit: TRIMALEOLAR FRACTURE Discharge Diagnosis: Trimalleolar fracture right ankle status post open reduction internal fixation Activity: As commented below Activity Comment: As tolerated, RLE NWB Lifting: None Lifting Comment: may feed yourself Bathing Comment: Keep Splint Clean and dry Sexual Activity: When tolerated Driving/Machine Use: No driving while on narcotics or splinted/braced Weightbearing: Right non-weightbearing Non-emergency contact: Primary Care Provider Call non-emergency contact if: you have any medication questions, your pain is concerning for you, you have a fever, your wound has increased drainage and your wound pain has increased Follow-up/Referrals: Terrence Iverson DO [Primary Care Provider] - Phyllis Abreu PA-C [Physician Copper Etcher] - 03/01/24 11:30 am Diet: Regular Addtl Attending Provider Instructions: Aspirin 1 tab twice daily to prevent the blood clots. Protonix daily while on aspirin for stomach protection. You can take over the counter tylenol, motrin, aleve as needed for the pain If not controlled, you can take oxycodone 4 times daily as needed for the pain. Continue the stool softener Your vitamin B12 is very low. Continue the oral vitamin B12 supplementation and follow with the family doctor. Also take folate and thiamine given your alcohol intake. Recommend quitting alcohol completely Please see other instructions below Addtl Project Crew Worker Provider Instructions: ORTHOPEDIC DISCHARGE INSTRUCTIONS -Weight bearing: Non-weight bearing on operative extremity with walker to assist in ambulation -Bracing/splint: Leave splint on until your first follow up appointment. Keep clean and dry. -Physical therapy: This will begin in 2 weeks and will be discussed at your first post operative appt -Frequently ice for the first two days, at least 20 minutes 5 times a day, and elevate your operative extremity to reduce swelling. -You may shower/bathe on Post op Day 3, but please keep splint out of water. You may use a shower cover (i.e trash bag, waterproof wrap, cast covers on [employer] etc) to cover your splint to avoid getting it wet. You cannot submerge your incision in water for 4 weeks. No baths, hot tubs or swimming pools. -DVT prophylaxis: anticoagulation per medicine service, SOILA compression stockings for 2 weeks -Pain control: Per medicine service -Follow up as scheduled in 1 week with [facility] for dressing change. Please call our office sooner @ [phone] if you have any questions or concerns Pending Studies at Discharge: No Stand-Alone Forms: My [employer], Smoking Cessation Medications and DC Order Prescriptions: New thiamine HCl (vitamin B1) 100 mg Tablet 100 mg PO QAM 30 Days Qty: 30 0RF folic acid 1 mg Tablet 1 mg PO QAM 30 Days Qty: 30 0RF cyanocobalamin (vitamin B-12) 1,000 mcg capsule 1,000 mcg PO DAILY Qty: 30 0RF aspirin 81 mg capsule 81 mg PO BID 28 Days Qty: 56 0RF pantoprazole [Protonix] 40 mg tablet,delayed release (DR/EC) 40 mg PO DAILY 28 Days Qty: 28 0RF polyethylene glycol 3350 [ClearLax] 17 gram/dose powder 17 g PO DAILY 28 Days Qty: 476 0RF oxycodone 5 mg tablet 5 mg PO TID PRN (Reason: pain) 4 Days Qty: 12 0RF gabapentin 600 mg tablet 600 mg PO HS Qty: 1 0RF Continued venlafaxine 150 mg capsule,extended release 24hr 150 mg PO QAM tafluprost (PF) 0.0015 % dropperette 1 drp OPL HS Discharge Orders: Discharge Order (Routine); Ordered 02/26/24 Ordered By: Jorje Keller Admission Data Admit Date/Time: 02/23/24 12:24 Attending Provider: Jorje Keller Admit Provider: Jazmin Collado Primary Care Provider: Terrence Iverson Other Providers: Jazmin Collado; Aakash Herron; [facility] Other Interventions: Discharge Summary Assessment (RN) Last Done: 02/26/24 15:11
[2024-02-26] MEDS ORDERED: GABAPENTIN 600 MG TAB PO SCH (23:00)
== END 2024-02-26 15:31 | disposition home or self-care (01) | DRG 493 ==
LOC: ED 08:59 → SUATTDRO 12:24 → 3W 12:24

== ENCOUNTER 2024-05-07 08:37 | Observation (INO) ==
--- NOTE | 2024-05-04 08:49 | Anesthesiology Consultation ---
Date of Service May 04, 2024 Assessment & Plan (1) Encounter for pre-operative examination: Chart Review Chart Review: Acceptable Risk for Surgery (pending CBC with diff DOS ) and Patient NOT seen in Pre Admission Testing - Check CBC with diff stat DOS (not done preoperatively) -Infectious Disease screening: Per PAT nursing assessment on 05/04/24. No known infectious disease contacts in past 10 days or current infectious disease symptoms. No recent travel outside the country. Right ankle ORIF 02/24/24= Done under [facility] with LMA #4. Attempt x 1, atraumatic History Surgery Operation Date: 05/07/24 11:15 Proposed Procedures p Right Mastectomy with Right Axillary [place] Lymph Node Biopsy - Kalyan Catherine MD Height/Weight Height: 5 ft 5 in Weight: 87.997 kg Allergies Allergy/AdvReac Type Severity Reaction Status Date / Time No Known Allergies Allergy Verified 05/07/24 08:58 Medications Home Medications Medication Instructions Recorded Confirmed Last Taken venlafaxine 150 mg 150 mg PO QAM 07/21/22 05/07/24 05/07/24 07:30 capsule,extended release 24 hr cyanocobalamin (vitamin B-12) 1,000 mcg PO DAILY #30 caps 02/26/24 05/07/24 04/23/24 1,000 mcg capsule Active Medications Generic Name Dose Route Start Last Admin Trade Name Freq PRN Reason Stop Dose Admin Lactated Ringer's 1,000 mls @ 15 mls/hr 05/07/24 06:00 05/07/24 09:09 Lr IV 05/08/24 05:59 15 mls/hr .Q24H SIMRAN Administration Past Medical History Medical History HTN (hypertension) Per 02/26/24 [place] discharge summary- stopped taking Lisinopril due to leg cramping- BP stable off meds. Depression Hyperlipidemia No meds Sleep apnea Mild per study 06/2018. No CPAP Breast cancer (04/2024) - Right breast - Initially diagnosed 2000- s/p partial lumpectomy with sentinel LN biopsy with complete axillary dissection, chemo and XRT - Recurrence to right breast 04/2024 Alcohol dependence 0-2 glasses of wine/day per 05/04/24 nursing assessment DJD (degenerative joint disease) Osteoarthritis Past Family History Family History Other Coronary heart disease Diabetes Past Surgical History Surgical History History of open reduction and internal fixation (ORIF) procedure (02/2024) Right ankle ORIF 02/24/24= Done under [facility] with LMA #4. Attempt x 1, atraumatic History of colonoscopy H/O foot surgery RIGHT FOOT FOR HAMMERTOE Hx of lumpectomy RIGHT BREAST History of gastric bypass 2001 Social History Smoking Status: Never smoker Do You Dip or Chew Tobacco: No Hx Alcohol Use: Yes Alcohol type: wine alcohol intake frequency: 0-2 drinks per day Hx Substance Use: No substance use type: does not use Physical Exam Vital Signs Last Vital Signs Temp 36.5 C 05/07/24 09:00 Pulse 90 05/07/24 09:00 Resp 20 05/07/24 09:00 BP 144/83 H 05/07/24 09:00 Pulse Ox 98 05/07/24 09:00 O2 Del Method Room Air 05/07/24 09:00 Testing Laboratory Results 05/07/24 09:02 05/03/24= SODIUM: 138 POTASSIUM: 4.7 CHLORIDE: 100 CO2: 25 BUN: 12 CREATININE: 0.7 GLUCOSE: 92 Electrocardiogram Date: 05/03/24 Findings: + NSR @ (85bpm) Normal EKG per cardio
[2024-05-07] MEDS: LR 15ML/HR IV SCH (09:09)
[2024-05-07 09:27] LABS: Basophils # (auto) 0.03 K/uL (0.00-0.20); Basophils % (auto) 0.7 %; Eosinophils # (auto) 0.12 K/uL (0.00-0.50); Hematocrit (blood only) 38.1 % (37.0-47.0); Hemoglobin 12.5 g/dl (12.0-16.0); Immature Granulocytes # (auto) 0.01 K/uL (0.01-0.20); Immature Granulocytes % (auto) 0.2 %; Lymphocytes # (auto) 0.77 K/uL (1.20-3.40); Lymphocytes % (auto) 19.2 %; Mean Corpuscular Hemoglobin 32.3 pg (25.0-34.0); Mean Corpuscular Hgb Conc 32.8 g/dL (32.0-36.0); Mean Corpuscular Volume 98.4 fL (80.0-100.0); Mean Platelet Volume 10.7 fL (9.4-12.4); Monocytes # (auto) 0.48 K/uL (0.11-0.59); Neutrophils % (auto) 64.9 %; Platelet Count 224 K/uL (130-400); RDW Coefficient of Variation 13.4 % (11.5-14.5); RDW Standard Deviation 48.6 fL (36.4-46.3); Red Blood Count 3.87 M/uL (4.20-5.40); White Blood Count 4.01 K/ul (4.8-10.8)
--- OUTSIDE RECORDS SUMMARY | 2024-05-07 10:04 | External Medical Summary | Continuity of Care Document ---
Author Name Unknown Organization [facility] [address] [place], [place] [address] Address [address] [place] [id number] Care Team Providers Care Arranging Funeral Director Name Role Phone Terrence Iverson Primary Care Physician [phone] [id number] Date[facility] 05/02/24 - 05/02/24 [facility] [address] [place] [id number] [facility] Medicine [address] [address] Encounter Diagnosis Status post ORIF of fracture of ankle(Discharge Diagnosis) - 05/02/24 Discharge Disposition: Home or Self Care Attending Physician: MD Gopal, Aakash A Allergies, Adverse Reactions, Alerts No Known Allergies Medications amoxicillin 500 mg oral capsule TAKE ONE CAPSULE BY MOUTH FOUR TIMES A DAY FOR 7 DAYS MORNING, NOON, EVENING, BEFORE BEDTIME) Start Date: 03/08/24 Status: Ordered folic acid 1 mg oral tablet TAKE 1 TABLET BY MOUTH DAILY IN THE MORNING FOR 30 DAYS Start Date: 03/08/24 Status: Ordered pantoprazole 40 mg oral delayed release tablet TAKE 1 TABLET BY MOUTH DAILY FOR 4 WEEKS Start Date: 03/08/24 Status: Ordered venlafaxine 150 mg oral capsule, extended release Start: 03/08/24 3:32:00 PM EDT, 1 cap, PO, Daily Start Date: 03/08/24 Status: Ordered Vitamin B1 100 mg oral tablet TAKE 1 TABLET BY MOUTH IN THE MORNING FOR 30 DAYS Start Date: 03/08/24 Status: Ordered Mental Status 05/02/24 Barriers to Learning one year None evide nt Mandatory Health Literacy Documentation Yes Health Literacy Communication Barriers N ever Primary Language [place] Problem List Condition Confirmation Course Effective Dates Status Health St [facility] Informant Status post ORIF of fracture of ankle Confirmed Active Diagnosis Diagnosis Type Effective Dates Health Status inical Service Informant Status post ORIF of fracture of ankle Discharge Diagnosis 05/02/24 Social History Social History Type Response Smoking Status Never smoked cigaret vesta Sex Female Ortho Outpt Note * MD Gopal, Aakash A: MODIFY MD Gopal, Aakash A: MODIFY, MODIFY Event Display: Ortho Outpt Note Authored Date: [id number] Name:NARENDRA PEREZ Patient Number:[id number] :[id number] Date of Service:05/02/2024 CHIEF COMPLAINT: S/p right ankle ORIF HPI: Morena yearNicole presents today forf/u s/p ORIF of the right ankle bimalleolar, closed treatment posterior malleolar fracture. DOS: 02/24/2024. She presents today with a boot, and is full weight- bearing. [facility] but is otherwise with her boot. While doing this, she does note a smalllimpbut denies pain.Two weeks prior, shestopped using crutches.She has been going to formal PT. Overall she feelsmuch better following surgery, and his happy with PT.She denies any systemic symptoms of fevers or chills. Today she rates her pain a 0/10. PHYSICAL EXAM: Ambulating well with just the boot. Focusing on the patient's right lower extremity: 2+ DP pulse Sensation to light touch is intact Motor to the gastroc soleus, tibialis anterior, and EHL is 5/5. Incisions look good, no evidence of infections. Slight ankleswelling medially and lateral. - Calf squeeze test - Forefoot squeeze test RADIOGRAPHY: 2 AP, mortise, and lateralviews of theright ankleobt[facility] by [facility] show maturation and hardware in good position. Increased consolidation at fracture site. Mortise well-maintained. Callus formation. Posterior malleolar fracture is well aligned and consolidated. IMPRESSION: 69 year old female s/p ORIF of the right ankle bimalleolar, closed treatment posterior malleolar fracture. DOS: 02/24/2024, subsequent visit,doing as well as expected. GOAL: Promote Healing PLAN: After a lengthy discussion with the patient today regarding my above clinical findings, I am pleased with how well they are doing. - Discussed using normal shoe to slowly progress weight bearing without boot as tolerated - Continue with formal PT. - I explained that patient must be out of boot before returning to driving.Patient should trial driving and emergency braking prior to on road driving. Follow up in 6-8weeks with x-rays The patient understood all my instructions and explanations; all their questions were satisfactorily addressed. ATTESTATION: I, Sachi Hi, scribing forand in the presence of, Aakash Herron, on this date,05/02/2024 14:25:20. I, Dr. Herron, saw and examined the patient with Sachi Hi acting as my scribe. I reviewed the note and agree with the documented findings and the plan of care I developed. Electronic Signature on File Electronically Reviewed/Signed by: Sachi Hi Author Signature Dt/Tm:05/02/2024 02:28 PM Electronically Reviewed/Signed by: Aakash Herron MD Cosigner Signature Dt/Tm: 05/02/2024 05:20 PM [facility] Le[employer] Department of Orthopaedics and Rehabilitation [facility] [address], [place] [address] MR Patient Care team information Care Team Personnel Name: DO Iverson Dominic Position: Referring DIRECT Member Role: Primary Care Provider Address: Address[address] [place] [address] Care Team Related Persons Name: DARCY PEREZ Address: home [address] [place] [address], [place] [phone]
--- OUTSIDE RECORDS SUMMARY | 2024-05-07 10:04 | External Medical Summary | Summary of Care ---
Author Name Unknown Organization [facility] Address [address] [place] [address] Phone [phone] Care Team Providers Care Anesthesia Technician Name Role Phone Max Louise MD Primary Care Provider Reason for Visit * Reason Comments NEW PATIENT Abnormal right mammo gram. Encounter Details Date Type Department Care Team (Late st Contact Info) Description 05/03/2024 10:00 AM EDT Office Visit General Surgery, [facility] [address] [facility] [place] [address] Kalyan Catherine MD [address] [place] [address] Pre-op testing*; Infiltrating ductal carcinoma of breast, right (HCC) Allergies Active Allergy Reactions Criticality Noted Date Comments Bimatoprost 03/02/2024 Timolol 03/02/2024 Travoprost 03/02/2024 documented as of this encounter (statuses as of 05/03/2024) Medications Medication Sig Dispensed Refills Start Date End Date Status Albuterol Sulfate HFA 108 (90 Base) MCG/ACT Inhalation Aerosol SolutionIndications :Mild intermittent reactive airway disease without complication Inhale 2 Puffs by mouth every 6 hours as needed for Cough, Shortness of Breath or Wheezing. 18 g 2 06/07/2023 Active Lisinopril 10 MG Oral Tablet (Prinivil)Indicatio ns:HTN, goal below 130/80 Take 1 Tablet by mouth in the morning. 90 Tablet 3 06/07/2023 Active Additional Information Patient not taking.Reported on 03/02/2024 Aspirin 81 MG Oral Capsule Take 81 mg by mouth in the morning. 02/26/2024 Active Cyanocobalamin 1000 MCG Oral Capsule Take 1 Capsule by mouth in the morning. 02/26/2024 Active Folic Acid 1 MG Oral Tablet Take 1 Tablet by mouth in the morning. 02/26/2024 Active oxyCODONE HCl 5 MG Oral Tablet (Oxy IR) Take 1 Tablet by mouth every 8 hours as needed for Pain, Moderate. 02/26/2024 Active Pantoprazole Sodium 40 MG Oral Tablet Delayed Release (Protonix) Take 1 Tablet by mouth in the morning. 02/26/2024 Active Thiamine Mononitrate 100 MG Oral Tablet (Vitamin B-1) Take 1 Tablet by mouth in the morning. 02/26/2024 Active Tafluprost (PF) 0.0015 % Ophthalmic Solution Instill 1 Drop into eye at bedtime. Active Blink Tears 0.25 % Ophthalmic Gel (Polyethylene Glycol 400) Instill into eye as needed for Other (dry eyes). Active Polyethylene Glycol 3350 17 GM/SCOOP Oral Powder (SB Polyethylene Glycol 3350) Take 17 g by mouth as needed for Constipation. 02/26/2024 Active Venlafaxine HCl ER 150 MG Oral Capsule Extended Release 24 Hour (Effexor XR)Indications:Epis ode of recurrent major depressive disorder, unspecified depression episode severity (HCC) Take 1 Capsule by mouth in the morning. Every morning.. 90 Capsule 3 03/02/2024 Active documented as of this encounter (statuses as of 05/03/2024) Active Problems Problem Noted Date Diagnosed Date Recurrent major depressive disorder 07/29/2022 History of breast cancer 07/02/2019 Overview: Upper outer quadrant R breast, +estrogen receptor LYNETTE (obstructive sleep apnea) 07/17/2018 Other specified glaucoma 07/17/2018 Hyperlipidemia LDL goal <100 07/09/2015 Adjustment disorder with depressed mood 06/29/20 11 ADVANCE DIRECTIVE INFORMATION 05/02/2006 Overview: Pt has one, will bring copy documented as of this encounter (statuses as of 05/03/2024) Resolved Problems Problem Noted Date Diagnosed Date Resolved Date Alcohol dependence, continuous 01/29/2014 03/02/2024 Malignant neoplasm of female breast 05/02/2006 07/02/2019 Overview: Ductal carcinoma in 2001 Pernicious anemia 05/02/2006 07/07/2009 Overview: Due to gastric bypass documented as of this encounter (statuses as of 05/03/2024) Immunizations Name Administration Dates Next Due COVID-19 mRNA, LNP-s, No Pre serve, 2-Dose Series (Moderna) 12/31/2020,12/01/2020 COVID-19, mRNA, LNP-s, PF, B ooster, 100mcg/0.5mg (Moderna) 09/14/2021 Pneumococcal Conjugate Vacci ne, 20-valent ([id number]) 04/14/2022 Pneumococcal Polysaccharide PPV23 (Pneumovax) 11/08/2017 Season Influenza, Quad, PF, Adjuvanted, 65+ Yrs, IM (FLUAD) 08/13/2020 Seasonal Influenza, PF, 6 M & above, IM , (FluLaval or Fluzone) 07/17/2018,08/12/2017 Seasonal Influenza, Quadriva lent Hd (Fluzone Hd) 10/05/2023,07/29/2022,08/13/2021 Seasonal Influenza, Split, I IV3, With Preserve, Inj 11/21/2013,10/12/2012,08/21/2010 Seasonal Influenza, Trivalen t, High Dose, No Preserve, IM 07/18/2019 TDAP (age 10 and older)(Boostrix) 06/17/2022 TDAP, Age 7 and older, IM (Adacel) 06/29/2011 Varicella Zoster Vaccine (Adult) 07/09/2015 Zoster [...] on file documented as of this encounter Last Filed Vital Signs Vital Sign Reading Time Taken Comments Blood Pressure 136/63 05/03/2024 10:01 AM EDT Pulse 89 05/03/2024 10:01 AM EDT Temperature - - Respiratory Rate - - Oxygen Saturation - - Inhaled Oxygen Concentration - - Weight 86.2 kg (190 lb) 05/03/2024 10:01 AM EDT Height - - Body Mass Index 29.76 06/07/2023 4:34 PM EDT documented in this encounter Progress Notes * Kalayn Catherine MD - 05/03/2024 2:10 PM EDT [facility] NOTES INDICATION: Right Breast Cancer Clinical Stage 1 HISTORY OF PRESENT ILLNESS: Holly Dickinson is a 69 year old year old female who was referred by Self for evaluation and discussion of treatment options for carcinoma of the right central central quadrant. She is s/p core biopsy, right ultrasound guided demonstrating a high grade invasive ductal carcinoma. Estrogen receptor status is positive. Progesterone receptor status is positive. HER-2/erin receptors negative. This was found on screening mammogram. She has a past history of right breast cancer in 2000, treated with partial mastectomy, sentinel lymph node biopsy with completion axillary dissection, postop radiation treatment, chemotherapy. BREAST HISTORY: Mass: No Breast Pain: no Nipple discharge: No Previous problems/surgeries: Right breast cancer 2000 status post partial mastectomy and sentinel lymph node biopsy with completion axillary dissection Breast Cancer: yes Other Cancers: no GYNECOLOGIC HISTORY: Menarche at age: 11 Menopause at age: 56 Number of children: 1 Patient's age at first live : 24 Ever take oral contraceptives? Yes, history of use for 30 year(s) Ever take estrogen? No RADIOLOGIC INTERPRETATION: Narrative & Impression Result MAMMOGRAM DIAGNOSTIC GRETA RIGHT US BREAST LIMITED RIGHT History Abnormal mammogram The patient has no documented relevant family history. Films Compared 04/16/2024 MAMMOGRAM SCREENING GRETA BILATERAL, 04/15/2023 MAMMOGRAM SCREENING GRETA BILATERAL, 04/27/2022 MAMMOGRAM DIAGNOSTIC GRETA LEFT, 04/14/2022 MAMMOGRAM SCREENING GRETA BILATERAL, 01/02/2021 MAMMOGRAM SCREENING GRETA BILATERAL, and 05/15/2019 MAMMOGRAM SCREENING GRETA BILATERAL Findings MAMMOGRAM DIAGNOSTIC GRETA RIGHT/US BREAST LIMITED RIGHT The right breast has scattered areas of fibroglandular density. Post therapeutic changes are noted within the right breast. Persistent right retroareolar asymmetry noted on CC view. Targeted ultrasound of the retroareolar right breast demonstrates a corresponding poorly defined hypoechoic mass measuring 10 by 7 x 14 mm. Focal ultrasound of the right axilla is unremarkable. Impression Hypoechoic retroareolar right breast mass. BI-RADS Category: 4 - Suspicious. Recommendation US guided breast core biopsy is recommended for the right breast. The above findings and recommendations were discussed with and understood by the patient. Note: Approximately 10% of breast cancers are not mammographically apparent. A negative mammogram should not delay biopsy of a clinically suspected mass. Digital breast tomosynthesis was performed. This digital mammogram has been analyzed with the computer aided detection system. This notice contains the results of your recent mammogram, including information about breast density. If your mammogram shows that your breast tissue is dense, you should know that dense breast tissue is a common finding and is not abnormal. Statistics show many women could have dense or highly dense breasts. Dense breast tissue can make it harder to find cancer on a mammogram and may be associated with an increased risk of cancer. This information about the result of your mammogram is given to you to raise your awareness and to inform your conversations with your physician. Together, you can decide which screening options are right for you, based on your mammogram results, individual risk factors or physical examination. A report of your results was sent to your physician. Your mammographic breast density on today's study is described above. There are four categories of breast density on mammography. Fatty breasts and those with scattered fibroglandular tissue are not considered dense. Heterogeneously dense or extremely dense tissue is considered "dense". Please understand that assessment of breast density may vary from year to year. This examination was performed at [facility], [address] [place] [address], [place] [address]. Addenda ADDENDUM: Pathology: A. Breast, right, retroareolar, core needle biopsy: Invasive ductal carcinoma, histologic grade 3 out of 3. The imaging and pathologic findings are concordant. Surgical and oncology consultation are recommended. I spoke with the patient regarding her biopsy results. She expressed understanding. The nurse navigator, Marj Francisco, has been contacted to help facilitate her care. Signed by Shalonda Joseph MD on 04/25/2024 11:49 Narrative & Impression EXAM US GUIDED BREAST BIOPSY RIGHT; MAMMOGRAM POST BIOPSY CLIP PLACEMENT- 04/19/2024 1:43 pm; N/A HISTORY right breast biopsy; abnormal mammogram COMPARISON 04/18/2024 TECHNIQUE See below FINDINGS A timeout procedure was performed by Shalonda Joseph M.D. in the presence of Bebe Gibbs. The patient's identification was verified. After discussion of the risks, benefits, and alternatives to the procedure as well as a detailed explanation of the procedure, the patient was given the opportunity to ask questions. After her questions were answered to her satisfaction, informed consent withagreement of procedure, site, and position was obtained. The procedure matches the verbalized consent. All necessary equipment was available prior to procedure. The side of the intended procedure wasmarked on the skin. Patient has allergy to timolol,bimatoprost, and Travoprost. She has no known blo od dyscrasias and is not taking anticoagulant medication except for aspirin which she stopped yesterday. Preliminary ultrasound redemonstrates a right breast retroareolar hypoechoic nonshadowing lobular structure measuring 16 x 9 x 15 mm. No internal vascularity. Using aseptic technique, local anesthesia with buffered 1% lidocaine, and ultrasound guidance, core biopsy was performed via a medial to lateral approach using a 14 gauge Inrad biopsy device. Four passes through the target were documented yielding good samples. A heart shaped biopsy marker was placed in the nodule. Post biopsy unilateral right mammogram demonstrates the biopsy marker within the mammographic finding confirming one-to-one correspondence between the ultrasound and mammographic findings. Post treatment changes are also present, unchanged. The patient tolerated the procedure well, and there were no complications. Specimens were sent to surgical pathology and results are pending. Written discharge instructions were given to the patient and also the reviewed verbally with her. The patient expressed understanding of the instructions and was discharged from the department in stable condition. IMPRESSION IMPRESSION Ultrasound-guided core biopsy of right breast retroareolar hypoechoic structure was performed with heart shaped biopsy marker placed in good position. MY INTERPRETATION: I have reviewed the films personally and with the radiologist and concur with the read. FAMILY HISTORY: Family history of breast or ovarian cancer: See below Family history of other cancer: See below Family History Problem Relation Name Age of Onset Uterine cancer Mother Heart Disorder Father Coronary Artery disease Father Coronary Artery disease Brother Diabetes Grandmother (Maternal) Diabetes Grandfather (Maternal) Diabetes Grandmother (Paternal) Diabetes Grandfather (Paternal) Breast Cancer No significant family history Past Medical History Past Medical History: Diagnosis Date Breast cancer (HCC) 2001 right breast with chemo and XRT C. difficile diarrhea Elevated cholesterol Malignant neoplasm of female breast (HCC) 05/02/2006 Ductal carcinoma in 2001 Malignant neoplasm of other specified sites of female breast 2001 radiation/chemo Other B-complex deficiencies s/p bariatric surgery - resolved Past Surgical History Past Surgical History: Procedure Laterality Date BIMALLEOLAR ANKLE FX W/ FIXATION Right 02/24/2024 BIOPSY OF BREAST, OPEN Right 2000 R breast cancer CHEMOTHERAPY 2001 COLONOSCOPY 2004 normal COLONOSCOPY, DIAGNOSTIC (RECTUM) 02/28/2014 COLONOSCOPY FLEXIBLE PROXIMAL DIAGNOSTIC performed by Jaison Salvador DO at ENDOSCOPY [facility] DENTAL SURGERY PROCEDURE NEC Bilateral 1973 GASTRIC BYPASS FOR OBESITY 2005 INCISION OF METATARSAL Right 11/28/2017 OSTEOTOMY OTHER THAN 1ST METATARSAL performed by Barbara Koch DPM at OR [facility] KNEE ARTHROSCOPY, DIAGNOSTIC 1996 Knee Arthroscopy - bilat, cartilage RADIATION THERAPY Right 2001 REPAIR OF HAMMERTOE, ONE TOE Right 11/28/2017 CORRECTION HAMMERTOE performed by Barbara Koch DPM at OR [facility] Current outpatient prescriptions Current Outpatient Medications Medication Sig Dispense Refill Albuterol Sulfate HFA 108 (90 Base) MCG/ACT Inhalation Aerosol Solution Inhale 2 Puffs by mouth every 6 hours as needed for Cough, Shortness of Breath or Wheezing. 18 g 2 Lisinopril 10 MG Oral Tablet (Prinivil) Take 1 Tablet by mouth in the morning. (Patient not taking:Reported on 03/02/2024) 90 Tablet 3 Aspirin 81 MG Oral Capsule Take 81 mg by mouth in the morning. Cyanocobalamin 1000 MCG Oral Capsule Take 1 Capsule by mouth in the morning. Folic Acid 1 MG Oral Tablet Take 1 Tablet by mouth in the morning. oxyCODONE HCl 5 MG Oral Tablet (Oxy IR) Take 1 Tablet by mouth every 8 hours as needed for Pain, Moderate. Pantoprazole Sodium 40 MG Oral Tablet Delayed Release (Protonix) Take 1 Tablet by mouth in the morning. Thiamine Mononitrate 100 MG Oral Tablet (Vitamin B-1) Take 1 Tablet by mouth in the morning. Tafluprost (PF) 0.0015 % Ophthalmic Solution Instill 1 Drop into eye at bedtime. Blink Tears 0.25 % Ophthalmic Gel (Polyethylene Glycol 400) Instill into eye as needed for Other (dry eyes). Polyethylene Glycol 3350 17 GM/SCOOP Oral Powder (SB Polyethylene Glycol 3350) Take 17 g by mouth as needed for Constipation. Venlafaxine HCl ER 150 MG Oral Capsule Extended Release 24 Hour (Effexor XR) Take 1 Capsule by mouth in the morning. Every morning.. 90 Capsule 3 No current facility-administered medications for this visit. Allergies: Allergies as of 05/03/2024 - Reviewed 05/03/2024 Allergen Reaction Noted Bimatoprost 03/02/2024 Timolol 03/02/2024 Travoprost 03/02/2024 REVIEW OF SYSTEMS - ROS EXAM: As per HPI, otherwise negative EXAMINATION Blood pressure 136/63, pulse 89, weight 86.2 kg (190 lb). Constitutional: alert, healthy, well nourished Head: normocephalic, atraumatic Eyes: conjunctiva non-injected, sclera white Neck: supple, no adenopathy Lungs: clear to auscultation, breath sounds are equal and symmetric Heart: regular rate & rhythm and no murmur, gallops or rubs Abdomen: soft, non-tender Back: normal curvature, normal ROM, no CVA tenderness Extremities: no joint deformities, effusion, or inflammation, no edema, no skin discoloration Neuro: alert, gait normal, motor normal Skin: no obvious rashes or significant lesions BREAST EXAMINATION Right Breast: No evidence of mass, skin retraction, nipple inversion, Pagets, peau d'orange, arm edema, nipple discharge, palpable axillary adenopathy, or palpable supraclavicular adenopathy. Evidence of skin retraction from scarring and post XRT changes There are surgical scars. Left Breast: No evidence of mass, skin retraction, nipple inversion, Pagets, peau d'orange, arm edema, nipple discharge, palpable axillary adenopathy, or palpable supraclavicular adenopathy. There are no surgical scars. IMPRESSION: Clinical stage I carcinoma of the right retroareolar breast. She has had a prior right breast partial mastectomy and axillary dissection followed by radiation therapy and chemotherapy fora prior breast cancer. This was all done in [facility]. Options for management were discussed with the patient and her family. As she has already had radiation therapy to the right breast in 26 11, she has not eligible for further radiation therapy. I discussed with her the need for mastectomy in this situation. Even if she were to choose a breast conserving lumpectomy, the cosmetic out, would be poor, and the nipple-areolar complex would have to be removed given the proximity of the cancer to the nipple-areolar complex. I discussed that we would attempt a repeat sentinel lymph node biopsy, even though she has had a prior axillary dissection. The research has demonstrated some successwith this procedure. She is aware that we may not be able to find a sentinel node given her prior axillary dissection. We discussed the risks of surgery, including bleeding, infection, recurrence, need for further procedures, risks of lymphedema. We also discussed the risk of possible numbness as well as chance of nerve injury causing difficulty with the moving her arm. The role of the medical oncologist and possible chemotherapy and adjuvant hormonal therapy based onfinal pathology were reviewed. She will be referred on to radiation and medical oncology. She understands that I do not recommend a preoperative MRI scan based on the density of her breastsand her other risk factors. The patient, in consultation with her family, has elected to proceed with right breast mastectomy with attempted right sentinel lymph node biopsy. PLAN: Schedule surgery as noted above. Follow up in clinic roughly 10 days after surgery. I spent a total of Greater than 55 mins (exact time 60 mins) on the date of service in preparation,delivery, and documentation of the care provided to Holly Dickinson excluding any time spent in theperformance of separately billed services. Kalyan Catherine MD 05/03/2024 2:11 PM * Stella Arizmendi LPN - 05/03/2024 11:38 AM EDT Patient identified by name and date of . Chief Complaint Patient presents with NEW PATIENT Abnormal right mammogram. Patient scheduled at [facility] [address] [facility] for above with dr catherine. Date of Test: unsure at this time, charleen will call pt Medications reviewed. EKG obtained Labs: not obtained, pt aware that she needs to get these done prior to surgery. Permit signed. Patient verbalizes understanding of pre- and post op instructions. Written instructions given for review at later date. Stella Arizmendi LPN 05/03/2024 documented in this encounter Procedure Notes * Gt David MD - 05/03/2024 11:09 AM EDTAssociated Order(s): EKG REASON FOR STUDY: pre op;pre op CONCLUSIONS: Normal sinus rhythm Normal ECG When compared with ECG of 03-May-2024 11:09, No significant change was found Ventricular Rate: 85 Atrial Rate: 85 AL Interval: 120 QRS Duration: 78 QT/QTc: 374/445 ms P-R-T [place]: 61 : 47 : 65 degrees documented in this encounter Nursing Notes * Cheryl Greenberg MED ASSIST - 05/03/2024 10:01 AM EDT Chief Complaint Patient presents with NEW PATIENT Abnormal right mammogram. Patient presents today for evaluation of Abnormal Mammogram. Patient had mammogram done at [facility] on 04/16/2024. BREAST HISTORY: Mass: Yes; right central outer, duration 2000 Breast Pain: no Nipple discharge: No Previous problems/surgeries: core biopsy, right ultrasound guided Breast Cancer: yes Other Cancers: no GYNECOLOGIC HISTORY: LMP: No LMP recorded. Patient is postmenopausal. Menarche at age: 11 Menopause at age: 56 Number of children: 1 Patient's age at first live : 24 Did you breast feed any of your children: Yes Ever take oral contraceptives? Yes, history of use for 30 year(s) Ever take estrogen? No Family History of Breast Cancer: No documented in this encounter Plan of Treatment Upcoming Encounters Date Type Department Care Team (Late st Contact Info) Description 05/07/2024 7:40 AM EDT Office Visit Non [facility], Operating Room, [address] [place] [address] Kalyan Catherine MD [address] [facility] [address] 05/23/2024 11:30 AM EDT Office Visit General Surgery, [facility] [address] [place] [address] Kalyan Catherine MD [address] [place] [address] Scheduled Orders Name Type Priority Associated Diagnoses Orde r Schedule NM BREAST 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 RADIOLOGIST INJECTION Medical Imaging Routine Pre-op testing Expected: 05/03/2024 (Approximate), Expires: 06/02/2025 Scheduled Procedures Name Priority Associated Diagnoses Date/Ti me COLONOSCOPY FLEXIBLE PROXIMA L DIAGNOSTIC Recall Special screening for malignant neoplasms, colon Health Maintenance Due Date Last Done Comments Cologuard 1999 Sigmoidoscopy 1999 Fecal Occult Blood Test 12/15/2008 12/15/2007 COVID-19 Vaccine ( season) 2024 10/05/2023, 09/14/2021, 12/31/2020, Additional history exists Colonoscopy 02/29/2024 02/28/2014, 02/28/2014 Colorectal Cancer Screening 02/29/2024 Depression Monitoring 04/15/2024 04/15/2023 Mammogram 04/18/2025 04/18/2024, 04/07, 04/15/2023, Additional history exists DXA Scan 04/19/2026 04/19/2023, 04/07, 05/15/2019, Additional history exists Lipid Panel 06/03/2028 06/03/2023, 05/08, 06/20/2018, Additional history exists DTaP,Tdap,and Td Vaccines (3 - Td or Tdap) 06/17/2032 06/17/2022, 06/29/2011 Zoster Vaccines Completed 10/18/2019, 07/08, 07/09/2015 Pneumococcal Vaccine: 65+ Years Completed 04/14/2022, 11/08/2017 Influenza Vaccine (FLU shot) Completed , 07/29/2022, 08/13/2021, Additional history exists GARDASIL-HPV IMMUNIZATION SERIES Aged Out No longer eligible based on patient's age to complete this topic Hepatitis B Aged Out No longer eligi ble based on patient's age to complete this topic MENINGOCOCCAL (MENACTRA/MENVEO) Aged Out No longer eligible based on patient's age to complete this topic documented as of this encounter Medical Devices Implanted Type Area Patient Financial Rep Device Identifier Shelf Expiration Date Model / Serial / Lot [id number] Implanted:Qty: 2 on 11/28/2017 by Barbara Koch DPM at OR [facility] Right: Foot [id number] T / / Trim It Drill Pin Kit - [id number] Implanted:Qty: 1 on 11/28/2017 by Barbara Koch DPM at OR [facility] Right: Foot [employer] 04/06/2019 [id number] / / documented as of this encounter Procedures Procedure Name Priority Date/Time Associated Diagnosis Comments AL ECG ROUTINE ECG W/LEAST 12 LDS I&R ONLY Routine 05/03/2024 11:09 AM EDT Pre-op testing documented in this encounter Results * EKG (05/03/2024 11:09 AM EDT) 05/03/2024 11:0 9 AM EDT Narrative Procedure Note Gt David MD - 05/03/2024 11:09 AM EDT REASON FOR STUDY: pre op;pre op CONCLUSIONS: Normal sinus rhythm Normal ECG When compared with ECG of 03-May-2024 11:09, No significant change was found Ventricular Rate: 85 Atrial Rate: 85 AL Interval: 120 QRS Duration: 78 QT/QTc: 374/445 ms P-R-T [place]: 61 : 47 : 65 degrees Kalyan Catherine MD EKG [facility] documented in this encounter Visit Diagnoses Diagnosis Pre-op testing- Primary Preoperative examination, unspecified Infiltrating ductal carcinoma of breast, right (HCC) documented in this encounter Care Teams Anesthesia Technician Relationship Specialty Start Date End Date Max Louise MD [address] [facility] [place] [id number] PCP - General Family Medicine 05/03/24 documented as of this encounter
--- OUTSIDE RECORDS SUMMARY | 2024-05-07 10:04 | External Medical Summary ---
Author Name Unknown Address Unknown Organization [id number]:[facility] [address] [place] [id number] Laboratory Report Ordering Provider Test Date Status NETTIE BALES 05/03/2024 11:43:10 Final Observation Date Value Abnormality Reference (Units ) Status BUN 05/03/2024 11:43:10 12 6-20 (mg/dL) Final Creatinine 05/03/2024 11:43:10 0.7 0.5-1.0 (mg/dL) Final Glomerular filtration rate/1.73 sq M.predicted [Volume Rate/Area] in Serum, Plasma or Blood by Creatinine-based formula (CKD-EPI) 05/03/2024 11:43:10 >90 >=60 (mL/min) Final eGFR is calculated based on the CKD-EPI 2020 equation Sodium 05/03/2024 11:43:10 138 135-146 (m mol/L) Final Potassium 05/03/2024 11:43:10 4.7 3.5-5.1 (m mol/L) Final Cl 05/03/2024 11:43:10 100 98-107 (mm ol/L) Final CO2 05/03/2024 11:43:10 25 22-32 (mmo l/L) Final Anion gap 05/03/2024 11:43:10 13 7-15 (mmol /L) Final Glucose 05/03/2024 11:43:10 92 70-120 (mg /dL) Final Calcium 05/03/2024 11:43:10 9.6 8.4-10.2 ( mg/dL) Final Performing Location [facility] [[email or web address]] [facility] [address] [place] [id number]
--- OUTSIDE RECORDS SUMMARY | 2024-05-07 10:04 | External Medical Summary | Summary of Care ---
Author Name Unknown Organization [facility] Address [address] [place] [address] Phone [phone] Care Team Providers Care Internet Network Specialist Name Role Phone Max Louise MD Primary Care Provider Reason for Visit * Reason Comments Outpatient Testing Encounter Details Date Type Department Care Team (Late st Contact Info) Description 05/03/2024 11:40 AM EDT Laboratory Laboratory, [facility] [address] [place] [address] [facility] [address] [place] [address] HTN, goal below 130/80; Osteopenia, unspecified location Allergies Active Allergy Reactions Criticality Noted Date [...] (Moderna) 09/14/2021 Pneumococcal Conjugate Vacci ne, 20-valent ([id number]) 04/14/2022 Pneumococcal Polysaccharide PPV23 (Pneumovax) 11/08/2017 Season [...] Care Team (Late st Contact Info) Description 05/23/2024 11:30 AM EDT Office Visit General Surgery, [facility] [address] [place] [address] Kalyan Catherine MD [address] [place] [address] Pending Results Name Type Priority Associated Diagnoses Date /Time 25-HYDROXY VITAMIN D Lab Routine Osteopenia, unspecified location 05/03/2024 11:43 AM EDT Scheduled Procedures Name Priority Associated Diagnoses Date/Ti [...] this encounter Medical Devices Implanted Type Area Waist Fitter Device Identifier Shelf Expiration Date Model / Serial / Lot [id number] Implanted:Qty: 2 on 11/28/2017 by Barbara Koch DPM at OR [facility] Right: Foot [id number] T / / Trim It Drill Pin Kit - [id number] Implanted:Qty: 1 on 11/28/2017 by Barbara Koch DPM at OR [facility] Right: Foot [employer] 04/06/2019 [id number] / / documented as of this encounter Procedures Procedure Name Priority Date/Time Associated Diagnosis Comments BASIC METABOLIC PANEL Routine 05/03/2024 11:43 AM EDT HTN, goal below 130/80 documented in this encounter Results * BASIC METABOLIC PANEL (05/03/2024 11:43 AM EDT) BUN 12 6 - 20 mg/dL 05/03/2024 1:11 PM EDT [facility] Creatinine 0.7 0.5 - 1.0 mg/dL 05/03/2024 1:11 PM EDT [facility] Estimated Glomerular Filtration Rate >90 >=60 mL/min 05/03/2024 1:11 PM EDT [facility] Comment:eGFR is calculated b ased on the CKD-EPI 2020 equation Sodium 138 135 - 146 mmol/L 05/03/2024 1:11 PM EDT [facility] [address] Potassium 4.7 3.5 - 5.1 mmol/L 05/03/2024 1:11 PM EDT [facility] Chloride 100 98 - 107 mmol/L 05/03/2024 1:11 PM EDT [facility] [address] CO2 25 22 - 32 mmol/L 05/03/2024 1:11 PM EDT [facility] Anion Gap 13 7 - 15 mmol/L 05/03/2024 1:11 PM EDT [facility] [address] Glucose 92 70 - 120 mg/dL 05/03/2024 1:11 PM EDT [facility] Calcium 9.6 8.4 - 10.2 mg/dL 05/03/2024 1:11 PM EDT [facility] Blood Venous blood specimen / Unknown Venipuncture / Unknown 05/03/2024 11:43 AM EDT 05/03/2024 11:43 AM EDT Terrence Iverson DO LAB BLOOD ORDERABLES [facility] [address] [place] [id number] documented in this encounter Visit Diagnoses Diagnosis HTN, goal below 130/80 Unspecified essential hypertension Osteopenia, unspecified location documented in this encounter Care Teams Internet Network Specialist Relationship Specialty Start Date End Date Max Louise MD [address] [place] [id number] PCP - General Family Medicine 05/03/24 documented as of this encounter
--- OUTSIDE RECORDS SUMMARY | 2024-05-07 10:04 | External Medical Summary ---
Author Name Unknown Address Unknown Organization K01:[facility] [place] [address] [place] [address] Laboratory Report Ordering Provider Test Date Status NETTIE BALES 05/03/2024 11:43:10 Final Deficient: <20 ng/mL
Ins ufficient: 20-29 ng/mL
Recommended/Optimum:30-50 ng/mL

Vitamin D intoxication is rare. If suspicious of Vitamin D toxicity, evaluation of serum Calcium and PTH is recommended. Observation Date Value Abnormality Reference (Units ) Status 25-OH Vitamin D total 05/03/2024 11:43:10 8 Below low normal >19 (ng/mL) Final Performing Location [facility] - [address] [place] [address]
[2024-05-07] MEDS ORDERED: MIDAZOLAM HCL 1 MG/ML 2ML VIAL ONE (10:15)
[2024-05-07] MEDS ORDERED: fentaNYL citrate PF 100 MCG/2 ML VIAL ONE ×2 (10:15→11:32)
--- NOTE | 2024-05-07 10:21 | History & Physical Bridge Note ---
Date of Service May 07, 2024 History & Physical Bridge Note I have examined the patient, reviewed the History & Physical and in the interval since the performance of the History & Physical I have noted the following changes of clinical significance: no changes noted
[2024-05-07] MEDS ORDERED: PROPOFOL IV EMULSION 10 MG/ML 20 ML VIAL IV ONE (10:29)
[2024-05-07] MEDS ORDERED: LIDOCAINE 2% 2 ML VIAL/AMP(20MG/ML) INFIL ONE ×2 (10:29→12:00)
[2024-05-07] MEDS ORDERED: ONDANSETRON INJ 2 MG/ML 2 ML VIAL ONE (10:29)
[2024-05-07] MEDS ORDERED: DROPERIDOL 5 MG/2 ML VIAL IV PRN (11:02)
[2024-05-07] MEDS ORDERED: ePHEDrine sulfate 50 MG/ML AMP IV PRN (11:02)
[2024-05-07] MEDS ORDERED: ATROPINE SULFATE 0.1 MG/ML 10ML SYR IV PRN (11:02)
[2024-05-07] MEDS: ceFAZolin 2000MG 2,000 MG/15 ML SYR IV SCH (11:08)
[2024-05-07] MEDS ORDERED: DEXAMETHASONE SOD INJ 4 MG/ML VIAL ONE (12:00)
[2024-05-07] MEDS ORDERED: ROCURONIUM BROMIDE 10 MG/ML 5 ML VIAL IV ONE (12:00)
[2024-05-07] MEDS ORDERED: ePHEDrine sulfate 50 MG/5 ML SYR ONE (12:37)
[2024-05-07] MEDS: METHYLENE BLUE 0.5% 10 ML VIAL ONE (12:45)
[2024-05-07] MEDS: BUPIVACAINE LIPOSOME 1.3% 266 MG/20 ML VIAL ONE (12:46)
[2024-05-07] MEDS: BUPIVACAINE/EPINEPHRINE 0.25% 1:200,000 30 ML VIAL ONE (12:46)
[2024-05-07] MEDS ORDERED: NEOSTIGMINE METHYLSULFATE 1 MG/ML 10ML VIAL ONE (12:48)
[2024-05-07] MEDS ORDERED: GLYCOPYRROLATE 0.2 MG/ML VIAL ONE (12:48)
--- NOTE | 2024-05-07 12:56 | Post Operative Brief Note ---
Immediate Post Op Note Date of Surgery May 07, 2024 Pre & Post Diagnosis Operation Date: 05/07/24 11:15 Pre-Op Diagnosis: Infiltrating Carcinoma Right Breast Post-Op Diagnosis: Infiltrating Carcinoma Right Breast I identified the patient and participated in the time-out.: Yes Procedure Operation Date: 05/07/24 11:15 Actual Procedures p Right Mastectomy(Right) - Kalyan Catherine MD Surgeon Kalyan Catherine MD Orthopedic Podiatrist JESSICA Trevino assisted with tissue retraction, camera op, closure Estimated Blood Loss 10 Findings Consistent with Post-Op Diagnosis Drains Seth-Gonzalez Drain (10 flat)
--- NOTE | 2024-05-07 13:02 | Operative Report ---
Post Operative Report Pre & Post Diagnosis Operation Date: 05/07/24 11:15 Pre-Op Diagnosis: Infiltrating Carcinoma Right Breast Post-Op Diagnosis: Infiltrating Carcinoma Right Breast I identified the patient and participated in the time-out.: Yes Procedure Operation Date: 05/07/24 11:15 Actual Procedures p Right Mastectomy(Right) - Kalyan Catherine MD Surgeon Kalyan Catherine MD Hospitalist Medical Director JESSICA Trevino assisted with tissue retraction, camera op, closure Estimated Blood Loss 10 Findings Consistent with Post-Op Diagnosis attempted sentinel lymph node biopsy, no sentinel lymph node could be identified within the right axilla. She did have a prior axillary dissection Specimens right breast mastectomy Drains 10 Scottish flat NEREIDA Anesthesia Type General Complications no immediate complication Indications infiltrating ductal carcinoma the right breast; she has a history of right breast cancer treated with breast conserving therapy. At that time she had a complete axillary dissection. She did have radiation treatment following the surgery. Description of Procedure Patient was taken to the operating room, placed supine on the operating table. A timeout was performed, perioperative antibiotics were administered, SCD boots were placed. After adequate anesthesia and analgesia was obtained, the right breast and axilla were prepped and draped in normal sterile fashion Elliptical incision had been drawn out prior to surgery encompassing the nipple areolar complex. A mixture of Marcaine and Exparel was injected into and around the incision site and the flaps. Incision was made with 15 blade scalpel and carried into the subcutaneous tissue. Using a traction countertraction technique, the rest tissue was dissected free from the overlying skin and subcutaneous tissue with the electrocautery. The limits of the dissection where the clavicle superiorly, the sternum medially, and the fascia of the external oblique inferiorly, and the axillary fat pad laterally. Once this was complete, the breast was removed from the underlying pectoralis major muscle with the electrocautery. The specimen was marked with sutures and ink, and was sent off field for specimen. 2 perforators medially were clamped and tied with 3-0 silk suture. We turned our attention to the axilla. She had been injected in nuclear medici ne prior to the surgery. Using the neoprobe, we attempted to identify a sentinel node, knowing that she had had a prior axillary dissection. No sentinel node was identified. We then proceeded with hemostasis, which was excellent. More of the Marcaine Exparel mixture was injected into the flaps and the pectoralis major muscle. The wound was copiously irrigated and suctioned free. Hemostasis was excellent. A 10 Scottish flat NEREIDA drain was placed through separate stab incision and was secured with Silk suture. This tissue was closed with interrupted 3-0 Vicryl. Skin was closed with running 4 Monocryl subcuticular stitch. Dermabond was applied. Dressings were applied. she tolerated the procedure without complication, was transferred in stable condition to the PACU. All instrument, needle, and sponge counts were correct at the end of the case. my practice assistant was necessary throughout the procedure for tissue retraction, possible camera operation, and closure of the wounds. I understand that section 1842(b)(7)(D) of the Social Security act generally prohibits Medicare physician fee schedule payment for the services of assistants at surgery in teaching hospitals when qualified residents are available to furnish such services. I certify that the services for which payment is claimed were medically necessary and that no qualified resident was available to perform the services. I further understand that these services are subject to postpayment review by the Medicare carrier. I attest to the content of the Intraoperative Record and any orders documented therein. Any exceptions are noted below.
[2024-05-07] MEDS ORDERED: KETOROLAC TROMETHAMINE 15 MG/ML VIAL IV PRN (14:08)
[2024-05-07] MEDS ORDERED: ONDANSETRON INJ 2 MG/ML 2 ML VIAL IV PRN (14:08)
[2024-05-07] MEDS ORDERED: ACETAMINOPHEN 1,000 MG/100 ML VIAL IV PRN (14:08)
[2024-05-07] MEDS ORDERED: diphenhydrAMINE Capsule 25 MG CAP PO PRN (14:08)
[2024-05-07] MEDS ORDERED: MoRPHine SULFATE 2 MG/ML CARP IV PRN (14:08)
[2024-05-07] MEDS ORDERED: PROMETHAZINE HCL 12.5 MG in SODIUM CHLORIDE 0.9% 50 ML IV PRN (14:08)
--- NOTE | 2024-05-07 14:20 | Anesthesiology Progress Note ---
Date of Service May 07, 2024 Anesthesia Post Procedure Vital Signs Vital Signs: Temp Pulse Pulse Resp BP Pulse Ox O2 Del Method 05/07/24 14:05 37.1 C 79 18 133/81 92 Room Air 05/07/24 13:55 80 20 141/79 H 95 Nasal Cannula 05/07/24 13:45 36.9 C 79 20 140/71 96 Nasal Cannula 05/07/24 13:35 85 18 130/73 96 Nasal Cannula 05/07/24 13:25 92 H 22 140/70 97 Oxymask 05/07/24 13:15 36.6 C 106 H 19 147/83 H 95 Oxymask 05/07/24 09:00 36.5 C 90 20 144/83 H 98 Room Air O2 Flow Rate 05/07/24 14:05 05/07/24 13:55 2 05/07/24 13:45 2 05/07/24 13:35 2 05/07/24 13:25 7 05/07/24 13:15 7 05/07/24 09:00 Transfer of Care Handoff Completed per policy Notes Mental Status: alert / awake / arousable Patient Amnestic to Procedure: Yes Nausea / Vomiting: adequately controlled Pain: adequately controlled Airway Patency, RR, SpO2: stable & adequate BP & HR: stable & adequate Hydration State: stable & adequate Anesthetic Complications: no major complications apparent and Pt Satisfied with anesthetic care
--- NOTE | 2024-05-07 15:22 | Nuclear Medicine Report ---
RIGHT BREAST RADIOTRACER INJECTION FOR LYMPHOSCINTIGRAPHY CLINICAL HISTORY: Breast cancer. COMPARISON STUDY: No previous studies for comparison. PROCEDURE: The procedure, risks and benefits were discussed with the patient and informed consent was obtained. The procedure was performed by Dr. Weiner following a timeout. Skin of the right breast was prepped and draped in typical fashion. A total of 530.12 uCi of Lymphoseek injected in 5 intrade rmal aliquots within the right periareolar distribution. The injection was performed at 10:45 AM on 2023. No imaging was requested at this time. Patient tolerated the procedure well and no immed iate complications were evident. IMPRESSION: Right breast radiotracer injection for lymphoscintigraphy. ACT 112: Negative or not required by law. Electronically signed by: Rickie Weiner M.D. 05/07/2024 3:20 PM
[2024-05-07 16:58] LABS: Creatinine Clr Calc Pharmacy 88.7 ml/min; Est GFR (African American) 104.8 ml/min; Est GFR (Non-African American) 90.4 ml/min
[2024-05-07] MEDS: COUGH DROP (SUGAR FREE) LOZ 24 LOZ/1 BOX BUCCAL PRN (20:26)
[2024-05-07] MEDS: oxyCODONE/ACETAMINOPHEN 5mg/325mg TAB PO PRN (23:27)
[2024-05-08] MEDS: ENOXAPARIN INJ 40 MG/0.4 ML SYR SQ SCH (08:56)
--- NOTE | 2024-05-08 12:45 | Discharge Summary ---
Date of Service May 08, 2024 Admission HPI Per Admitting Provider Holly is a 69 yo female with history of hyperlipidemia, osteoarthritis , B12 deficiency, right breast cancer s/p lumpectomy, axillary dissection, and radiation therapy now with right breast cancer . She presents for elective right breast mastectomy and possible sentinel lymph node biopsy. Principal Diagnosis Invasive right breast cancer Discharge Exam Constitutional WD/WN, vitals as above cooperative and comfortable; no acute distress and not ill appearing Respiratory normal respiratory effort; no respiratory distress, no labored breathing and no retractions Chest (Breasts) Additional Comments: Inspection of Right chest with intact dressing, no drainage. There is no significant swelling of right chest wall. Right arm with good range of motion. Michael drain with bloody serous output. Skin no rashes, warm and dry Psychiatric A+Ox3, euthymic affect Discharge Data Allergies Allergy/AdvReac Type Severity Reaction Status Date / Time No Known Allergies Allergy Verified 05/07/24 08:58 Procedures Performed Operation Date: 05/07/24 11:15 Actual Procedures p Right Mastectomy(Right) - Kalyan Catherine MD Ordered Studies 05/07/24 05:00 US - OR guided needle placemen Routine Hospital Course (1) Invasive ductal carcinoma of right breast, stage 1: Plan Patient was taken to operating room for right breast mastectomy and possible right sentinel lymph node biopsy on 05/07/[address] kalyan Catherine. Patient tolerated procedure without difficulty. [place] lymph node biopsy was not performed as there was minimal radiotracer uptake in the axilla (history 15 lymph nodes removed 20 years ago). Patient was trasnferred to med/surg floor for postoperative care and pain management. Diet was advanced as tolerated. Patient evaluated on POD # 1 , avss, postop pain controlled with percocet, there was 50 cc michael drain output. Patient was discharged home in stable condition on POD # 1. Total Time Total Time Spent Total Time Spent (In Minutes): 30 minutes Total Time Includes: Examination of the Patient, Discharge Planning and Medication Reconciliation Discharge Plan Discharge Items Patient Disposition: Home - Self-Care Reason For Visit: Infiltrating Carcinoma Right Breast Discharge Diagnosis: Infiltrating carcinoma right breast Activity: Per Instructions section Non-emergency contact: Primary Care Provider and Surgeon Call non-emergency contact if: you have any medication questions, your pain is not controlled, your pain is worsening, your pain is concerning for you, you have a fever, your temperature is above 101, your wound has increased redness, your wound has increased drainage and your wound pain has increased Follow-up/Referrals: Kalyan Catherine MD [Physician] - Terrence Iverson DO [Primary Care Provider] - Diet: Regular Addtl Attending Provider Instructions: MEDICATIONS: Resume previous medications unless instructed otherwise by your surgeon. * Percocet 5/325 mg one tablet every 6 hours as needed for pain. - May alternate extrs strength Tylenol and Ibuprofen as needed for mild to moderate pain -650 mg tylenol every 6 hours as needed - Ibuprofen 600 mg every 6 hours as needed for pain. (take with food) - Do not exceed 3,000 mg of Tylenol in 24 hour period. Each tablet of Percocet has 325 mg of Tylenol in it. SPECIAL CARE INSTRUCTIONS: * Wear bra day and night until seen in office. * May shower in 24 hours. Let water run over incision and pat dry. * Surgical glue will fall off on its own. Do not pick at it * Surgical drain will be removed in office. Keep record of amount and color. Drain will be removed when the output is less than 30 cc/24 hours for 2 consectuative days * Call the surgeon's office with any questions or concerns - (ex. temperature higher than 101 degrees F, excessive bleeding or pain). * Simple range of motion exercises recommended daily. No heavy lifting over 10 pounds. FOLLOW UP VISIT: If not already scheduled, please call the office for a follow-up appointment for next week at . Pending Studies at Discharge: Yes (pathology) Stand-Alone Forms: My [facility] [employer] [place], Smoking Cessation Medications and DC Order Prescriptions: New oxycodone-acetaminophen 5-325 mg tablet 1 tab PO Q6H PRN (Reason: pain) Qty: 12 0RF Continued venlafaxine 150 mg capsule,extended release 24hr 150 mg PO QAM cyanocobalamin (vitamin B-12) 1,000 mcg capsule 1,000 mcg PO DAILY Qty: 30 0RF Discharge Orders: Discharge Order (Routine); Ordered 05/08/24 Ordered By: Lin Trevino Admission Data Admit Date/Time: 05/07/24 13:16 Attending Provider: Kalyan Catherine Admit Provider: Kalyan Catherine Primary Care Provider: Terrence Iverson Other Interventions: Discharge Summary Assessment (RN) Last Done: 05/08/24 12:50
== END 2024-05-08 14:31 | disposition home or self-care (01) ==
LOC: ASU 08:37 → 3E 11:39 → INTOOBSV 13:16